=== PATIENT | male | born 1940 | race Hispanic/Latino ===

== ENCOUNTER 2017-03-11 09:24 | Inpatient (IN) | payer MEDICARE, BC ==
[2017-03-11 09:28] VITALS: BMI 21.1
[2017-03-11] MEDS ORDERED: Iohexol 240 (50 ml) PO ONE (09:49)
[2017-03-11] MEDS ORDERED: Sodium Chloride 0.9% 1,000 ML IV STA (09:50)
--- NOTE | 2017-03-11 10:05 | ED PDOC ---
HPI: Abdomen Time Seen by Provider: 03/11/17 09:40 Chief Complaint (Nursing): Abdominal Pain Chief Complaint (Provider): abdominal pain History Per: Patient History/Exam Limitations: no limitations Onset/Duration Of Symptoms: Days (2) Context: Food Location Of Pain/Discomfort: RLQ Quality Of Discomfort: Sharp Associated Symptoms: Nausea, Loss Of Appetite, Constipation. denies: Vomiting Exacerbating Factors: None Alleviating Factors: None Additional Complaint(s): 76yo male c/o right lower abdominal pain associated with overnight chills, nausea and general feelings of unwellness. Went to urgent care clinic yesterday has bloodwork performed unknown results. States believes he still has his appendix, had perforated gastric ulcer surgery in 1950s with partial gastrectomy. PMD Omid Vogt Past Medical History Reviewed: Historical Data, Nursing Documentation, Vital Signs Vital Signs: Last Vital Signs Temp 100.3 F H 03/11/17 14:01 Pulse 88 03/11/17 09:27 Resp 20 03/11/17 09:27 BP 119/50 L 03/11/17 09:27 Pulse Ox 98 03/11/17 10:09 - Medical History PMH: Graves' Disease Denies: Diabetes, Hepatitis, HIV, HTN, Seizures, Sexually Transmitted Disease - Surgical History Other surgeries: gastric surgery 50yrs ago - Family History Family History: States: Unknown Family Hx - Living Arrangements Living Arrangements: With Family - Social History Current smoker - smoking cessation education provided: Yes Alcohol: Occasional - Home Medications Home Medications: Ambulatory Orders Medication Instructions Recorded Finasteride [Proscar] 5 mg PO DAILY 03/11/17 Levothyroxine [Synthroid] 88 mcg PO DAILY 03/11/17 Simvastatin [Zocor] 20 mg PO DAILY 03/11/17 Tamsulosin [Flomax] 0.8 mg PO DAILY 03/11/17 diaZEpam [Valium] 10 mg PO DAILY PRN 03/11/17 predniSONE [predniSONE Tab] 5 mg PO DAILY 03/11/17 - Allergies Allergies/Adverse Reactions: Allergies Allergy/AdvReac Type Severity Reaction Status Date / Time No Known Allergies Allergy Verified 04/27/15 15:48 Review of Systems ROS Statement: Except As Marked, All Systems Reviewed And Found Negative Constitutional: Positive for: Chills Cardiovascular: Negative for: Chest Pain, Palpitations Respiratory: Negative for: Cough, Shortness of Breath Gastrointestinal: Positive for: Nausea, Abdominal Pain, Constipation. Negative for: Vomiting, Hematochezia, Hematemesis Genitourinary Male: Negative for: Dysuria, Frequency Musculoskeletal: Negative for: Neck Pain, Shoulder Pain Skin: Negative for: Rash, Lesions, Jaundice Neurological: Negative for: Weakness, Numbness Psych: Negative for: Anxiety Physical Exam - Reviewed Nursing Documentation Reviewed: Yes Vital Signs Reviewed: Yes - Physical Exam Appears: Positive for: Well, Non-toxic, No Acute Distress Head Exam: Positive for: ATRAUMATIC, NORMAL INSPECTION, NORMOCEPHALIC Skin: Positive for: Normal Color, Warm, DRY Eye Exam: Positive for: Normal appearance, EOMI, PERRL, Other (patch to R eye) ENT: Positive for: Normal ENT Inspection Neck: Positive for: Normal, Painless ROM Cardiovascular/Chest: Positive for: Regular Rate, Rhythm Respiratory: Positive for: CNT, Normal Breath Sounds Gastrointestinal/Abdominal: Positive for: Bowel Sounds, Soft, Tenderness (mild RLQ). Negative for: Guarding, Rebound, Asicites Back: Positive for: Normal Inspection Extremity: Positive for: Normal ROM Neurologic/Psych: Positive for: Alert, Oriented. Negative for: Motor/Sensory Deficits - Laboratory Results Result Diagrams: 03/11/17 10:20 03/11/17 10:20 - ECG O2 Sat by Pulse Oximetry: 98 Medical Decision Making Medical Decision Making: pt found to be febrile in ED rectal temp Sepsis workup initiated. IVF, cultures, tylenol, labs, Ct abd pelvis r/o appendicitis/ colitis/ biliary colic/ obstruction or other abdominal or infectious pathology. labs reveal elevated WBC, abnormal LFTs, lactate <2 CT abd pelv reveals cholelithiasis without mention of CBD. Appendix normal. + narrowing of terminal ileum. CXR no acute infiltrate US Abdomen ordered PMD Dr Moreno contacted, requested Dr Carter for surgery, Dr Fletcher for GI and Dr Mariee for ID. Antibiotics initiated after cultures obtained. Family member and patient updated on results. Dr Fletcher aware approx 3pm, requested MRCP which was ordered for admitting team to follow. Dr Carter at bedside approx 315pm Surgery resident added Zozsyn to Abx coverage. Disposition - Clinical Impression Clinical Impression: Choledocholithiasis, Sepsis - Patient ED Disposition Is Patient to be Admitted: Yes Counseled Patient/Family Regarding: Studies Performed, Diagnosis, Need For Followup, Rx Given - Disposition Disposition: Routine/Home Disposition Time: 15:00 Condition: FAIR
[2017-03-11] MEDS ORDERED: Iohexol 240 (50 ml) ONE ×2 (10:35→10:51)
[2017-03-11 10:39] LABS: BASO % 0.1 % (0.0-2.0); EOS # 0.1 K/uL (0.0-0.7); EOS % 0.4 % (0.0-4.0); HEMATOCRIT 36.7 % (35.0-51.0); LYMPH # 0.7 K/uL (1.0-4.3); LYMPH % 3.5 % (20.0-40.0); MEAN CORPUSCULAR HEMOGLOBIN 25.6 pg (27.0-31.0); MEAN PLATELET VOLUME 8.6 fl (7.2-11.7); MONO # 1.2 K/uL (0.0-0.8); MONO % 6.3 % (0.0-10.0); NEUT # 17.1 K/uL (1.8-7.0); NEUT % 89.7 % (50.0-75.0); PLATELET COUNT 215 K/uL (130-400); RED CELL DISTRIBUTION WIDTH 16.6 % (11.5-14.5); VENOUS BLOOD GAS BASE EXCESS 1.2 mmol/L (0.0-2.0); VENOUS BLOOD GAS PCO2 41 mmHg (40-60); VENOUS BLOOD PH 7.41 (7.32-7.43)
[2017-03-11 10:54] LABS: ALB/GLOB RATIO 1.5 (1.0-2.1); ALKALINE PHOSPHATASE 113 U/L (38-126); ALT/SGPT 326 U/L (21-72); AST/SGOT 414 U/L (17-59); BILIRUBIN,TOTAL 3.1 mg/dl (0.2-1.3); BLOOD UREA NITROGEN 13 mg/dl (9-20); CALCIUM 8.9 mg/dL (8.4-10.2); CARBON DIOXIDE 22 mmol/L (22-30); CHLORIDE 103 mmol/L (98-107); GFR AFRICAN-AMERICAN > 60; GLUCOSE,RANDOM 121 mg/dL (75-110); SODIUM 135 mmol/l (132-148); TOTAL PROTEIN 6.3 G/DL (6.3-8.2)
[2017-03-11] MEDS ORDERED: Sodium Chloride 0.9% 50 ML IV ONE (12:38)
[2017-03-11] MEDS ORDERED: Iohexol 300 100 ML IJ ONE (12:38)
--- NOTE | 2017-03-11 13:35 | CT ---
PROCEDURE: CT Abdomen and Pelvis with contrast HISTORY: RLQ pain, nausea; hx gastric surgery 1950 COMPARISON: None. TECHNIQUE: Contrast dose: 95 cc of Omnipaque 300 Radiation dose: Total exam DLP = 496 mGy-cm. This CT exam was performed using one or more of the following dose reduction techniques: Automated exposure control, adjustment of the mA and/or kV according to patient size, and/or use of iterative reconstruction technique. FINDINGS: LOWER THORAX: Unremarkable. LIVER: 7 millimeter partly calcified cyst in the right hepatic lobe near the dome. . No gross lesion or ductal dilatation. GALLBLADDER AND BILE DUCTS: Multiple gallstones with minimal focal gallbladder wall thickening possibly representing an adenomyomatosis. PANCREAS: Unremarkable. No gross lesion or ductal dilatation. SPLEEN: Unremarkable. ADRENALS: Unremarkable. No mass. KIDNEYS AND URETERS: Unremarkable. No hydronephrosis. No solid mass. VASCULATURE: Atherosclerotic changes of the aorta. No aneurysm. BOWEL: Short segment of luminal narrowing and bowel wall thickening involving the distal ileum (series 2, images 76-80). No obstruction. No gross mural thickening. APPENDIX: Normal appendix. PERITONEUM: Unremarkable. No free fluid. No free air. LYMPH NODES: Unremarkable. No enlarged lymph nodes. BLADDER: Roughly 1.5 centimeter right posterior bladder diverticulum. . REPRODUCTIVE: Unremarkable. BONES: No acute fracture. OTHER FINDINGS: None. IMPRESSION: Cholelithiasis with questionable mild adenomyomatosis. Tiny calcified cyst in the right hepatic lobe. 1.5 centimeter right bladder diverticulum. Short segment of luminal narrowing and mild bowel wall thickening involving the distal ileum. Accompanying mild increased enhancement. No evidence of associated inflammatory changes. This is nonspecific in etiology and is of uncertain clinical significance. No evidence of an associated inflammatory change. Normal appearance of the appendix.
[2017-03-11] MEDS ORDERED: Ciprofloxacin 400mg/200ml D5W 400 MG/200 ML BAG IVPB STA (13:42)
[2017-03-11] MEDS ORDERED: metroNIDAZOLE 500mg/100ml NS 100 ML IVPB STA (13:42)
[2017-03-11 13:43] LABS: RBC URINE 1 /hpf (0-3); URINE BACTERIA RARE (<OCC); URINE BILIRUBIN NEGATIVE (NEGATIVE); URINE BLOOD NEGATIVE (NEGATIVE); URINE CALCIUM OXALATE CRYSTALS RARE /hpf (<OCC); URINE COLOR YELLOW (YELLOW); URINE GLUCOSE (UA) NEG (Normal); URINE KETONE NEGATIVE (NEGATIVE); URINE LEUKOCYTE ESTERASE NEG Leu/uL (Negative); URINE PROTEIN NEGATIVE (NEGATIVE); URINE UROBILINOGEN 0.2-1.0 mg/dL (0.2-1.0); WBC URINE 1 /hpf (0-5)
[2017-03-11 13:49] LABS: NEUTROPHIL 87 % (42-75); TOTAL CELLS COUNTED 100
[2017-03-11] MEDS ORDERED: Ciprofloxacin 400mg/200ml D5W 400 MG/200 ML BAG IVPB ONE (13:53)
--- NOTE | 2017-03-11 16:00 | CP.PCM.CON ---
History of Present Illness - History of Present Illness History of Present Illness: Surgery: Dr. Carter Reason for consult: cholangitis CC: Right side abdominal pain and fever HPI: Patient is a 76 y/o male w/ sig pmhx of partial gastric resection 2/2 ulcers presents complaining of Right sided abdominal pain that started yesterday night as well as fever. Patient reports having similar pain in the past but was attributed to kidney stones. Patient reports the pain was sharp in nature and radiate to the back on the right side. He denies n/v. Daughter at bedside reports high fever last night with chills. Pain was somewhat relieved was given medication in ER. Denies constipation/diarrhea. PMH: Grave's disease, COPD, PUD PSH: ex lap Chavo patch for duodenal perforation followed by repeat ex lap w/ Billroth I vs Billroth II configuration for PUD, thyroidectomy, urology procedures for kidney stones Social: prior ETOH use, smokes 1ppd Review of Systems - Review of Systems All systems: reviewed and no additional remarkable complaints except Review of Systems: otherwise negative Past Patient History - Past Social History Smoking Status: Heavy Smoker > 10 Cigarettes Daily - CARDIAC Hx Cardiac Disorders: No Hx Hypertension: No - PULMONARY Hx Respiratory Disorders: No Hx Tuberculosis: No - NEUROLOGICAL Hx Neurological Disorder: No Hx Seizures: No - HEENT Hx HEENT Problems: No - RENAL Hx Chronic Kidney Disease: No - ENDOCRINE/METABOLIC Hx Endocrine Disorders: Yes - HEMATOLOGICAL/ONCOLOGICAL Hx Human Immunodeficiency Virus (HIV): No - INTEGUMENTARY Hx Dermatological Problems: No - MUSCULOSKELETAL/RHEUMATOLOGICAL Hx Musculoskeletal Disorders: No - GASTROINTESTINAL Hx Gastrointestinal Disorders: No - GENITOURINARY/GYNECOLOGICAL Hx Genitourinary Disorders: No Hx Sexually Transmitted Disorders: No - PSYCHIATRIC Hx Substance Use: No - SURGICAL HISTORY Hx Surgeries: Yes Other/Comment: CATARACT. - ANESTHESIA Hx Anesthesia: Yes Hx Anesthesia Reactions: No Meds Allergies/Adverse Reactions: Allergies Allergy/AdvReac Type Severity Reaction Status Date / Time No Known Allergies Allergy Verified 04/27/15 15:48 - Medications Medications: Current Medications Sodium Chloride (Sodium Chloride 0.9%) 1,000 mls @ 150 mls/hr IV .Q6H40M STA Stop: 03/11/17 16:29 Last Admin: 03/11/17 10:37 Dose: 150 mls/hr Physical Exam - Constitutional Appears: Non-toxic, No Acute Distress - Head Exam Head Exam: ATRAUMATIC, NORMOCEPHALIC - Eye Exam Eye Exam: EOMI, Scleral icterus - ENT Exam ENT Exam: Mucous Membranes Moist - Respiratory Exam Respiratory Exam: NORMAL BREATHING PATTERN. absent: Respiratory Distress - Cardiovascular Exam Cardiovascular Exam: REGULAR RHYTHM. absent: Tachycardia - GI/Abdominal Exam GI & Abdominal Exam: Soft, Tenderness (RUQ ). absent: Distended, Guarding, Rebound, Rigid Additional comments: 2 midline scars well healed - Extremities Exam Extremities exam: Positive for: normal inspection. Negative for: calf tenderness - Neurological Exam Neurological exam: Alert, Oriented x3 - Psychiatric Exam Psychiatric exam: Normal Affect, Normal Mood - Skin Skin Exam: Dry, Normal Color, Warm Results - Vital Signs Recent Vital Signs: Last Vital Signs Temp 100.3 F H 03/11/17 14:01 Pulse 88 03/11/17 09:27 Resp 20 03/11/17 09:27 BP 119/50 L 03/11/17 09:27 Pulse Ox 98 03/11/17 10:09 - Labs Result Diagrams: 03/11/17 10:20 03/11/17 10:20 Assessment & Plan - Assessment and Plan (Free Text) Assessment: 76 y/o male w/ cholangitis Plan: -CT shows dilated CBD and possible stone however patient might have gastrojejunostomy configuration (Billroth 2) making CBD access difficult through endoscopy -may require PTC if stone lodged in CBD -f/u ultrasound -am labs -IV abx -IVFs -NPO -pending clinical course determines surgical intervention -patient seen and examined w/ Dr. Carter AKsara PGY3
[2017-03-11] MEDS ORDERED: HYDROmorphone 0.5 mg/0.5 ml ISec IVP PRN (16:13)
--- NOTE | 2017-03-11 16:14 | RAD ---
HISTORY: Fever. COMPARISON: 04/27/2015. FINDINGS: LUNGS: No active pulmonary disease. PLEURA: No significant pleural effusion identified, no pneumothorax apparent. CARDIOVASCULAR: No radiographic findings to suggest acute or significant cardiovascular disease. OSSEOUS STRUCTURES: No significant abnormalities. VISUALIZED UPPER ABDOMEN: Normal. OTHER FINDINGS: None. IMPRESSION: No active disease. No significant interval change compared to the prior examination(s). No preliminary report provided by emergency department personnel.
--- NOTE | 2017-03-11 16:21 | US ---
HISTORY: RUQ GB, elev LFTs COMPARISON: None. TECHNIQUE: Sonographic evaluation of the right upper quadrant of the abdomen. FINDINGS: LIVER: Measures 12.9 cm in length. Patent portal vein. Portal venous flow: Hepatopetal. Unremarkeable echogenicity of the liver parenchyma. Well-circumscribed echogenic mass right hepatic lobe near the diaphragm 9 x 12 mm consistent with small incidental hemangioma. GALLBLADDER: Cholelithiasis. Evidence of gallbladder wall thickening, trace pericholecystic fluid. No sonographic Ibanez's sign. COMMON BILE DUCT: Measures 6.0 mm. Mass within the common bile duct consistent with common bile duct stone 8 x 13 mm. PANCREAS: Obscured by overlying bowel gas. Non diagnostic assessment of the pancreas RIGHT KIDNEY: Measures 5 x 11.2 cm in length. Normal echogenicity. No calculus, mass, or hydronephrosis. AORTA: No aneurysmal dilatation. IVC: Unremarkable. OTHER FINDINGS: None . IMPRESSION: 1. Cholelithiasis and findings suggestive of acute cholecystitis. 2. Choledocholithiasis Limitations of the current examination: Nondiagnostic assessment of the gallbladder which is obscured by overlying bowel gas.
--- NOTE | 2017-03-11 17:07 | CP.PCM.CON ---
History of Present Illness - History of Present Illness History of Present Illness: Patient is a 76 y/o male pmhx of partial gastric resection / BILLROTH II RESECTION presents complaining of Right sided abdominal pain that started yesterday night as well as fever. . Daughter at bedside reports high fever last night with chills. Pain was somewhat relieved was given medication in ER. Denies constipation/diarrhea. IV ANTIBIOTICS STARTED EMPIRICALLY FOR BILIARY SEPSIS / ASCENDING CHOLANGITIS PMH: Grave's disease, COPD, PUD PSH: ex lap Chavo patch for duodenal perforation followed by repeat ex lap w/ Billroth I vs Billroth II configuration for PUD, thyroidectomy, urology procedures for kidney stones Social: prior ETOH use, smokes 1ppd Review of Systems - Constitutional Constitutional: As Per HPI, Anorexia, Fever, Malaise - EENT Eyes: absent: As Per HPI, Blind Spots, Blurred Vision, Change in Vision, Decreased Night Vision, Diplopia, Discharge, Dry Eye, Exophthalmos, Floaters, Irritation, Itchy Eyes, Loss of Peripheral Vision, Pain, Photophobia, Requires Corrective Lenses, Sees Flashes, Spots in Vision, Tunnel Vision, Other Visual Disturbances, Loss of Vision, Other Ears: absent: As Per HPI, Decreased Hearing, Ear Discharge, Ear Pain, Tinnitus, Abnormal Hearing, Disequilibrium, Dizziness, Other Nose/Mouth/Throat: absent: As Per HPI, Epistaxis, Nasal Congestion, Nasal Discharge, Nasal Obstruction, Nasal Trauma, Nose Pain, Post Nasal Drip, Sinus Pain, Sinus Pressure, Bleeding Gums, Change in Voice, Dental Pain, Dry Mouth, Dysphagia, Halitosis, Hoarsness, Lip Swelling, Mouth Lesions, Mouth Pain, Odynophagia, Sore Throat, Throat Swelling, Tongue Swelling, Facial Pain, Neck Pain, Neck Mass, Other - Cardiovascular Cardiovascular: absent: As Per HPI, Acrocyanosis, Chest Pain, Chest Pain at Rest , Chest Pain with Activity, Claudication, Diaphoresis, Dyspnea, Dyspnea on Exertion, Edema, Irregular Heart Rhythm, Pain Radiating to Arm/Neck/Jaw, Leg Edema, Leg Ulcers, Lightheadedness, Orthopnea, Palpitations, Paroxysmal Nocturnal Dyspnea, Pedal Edema, Radiating Pain, Rapid Heart Rate, Slow Heart Rate, Syncope, Other - Respiratory Respiratory: absent: As Per HPI, Cough, Dyspnea, Hemoptysis, Dyspnea on Exertion , Wheezing, Snoring, Stridor, Pain on Inspiration, Chest Congestion, Excessive Mucous Production, Change in Mucous Color, Pain with Coughing, Other - Gastrointestinal Gastrointestinal: As Per HPI - Genitourinary Genitourinary: absent: As Per HPI, Change in Urinary Stream, Difficulty Urinating, Dysuria, Flank Pain, Hematuria, Pyuria, Nocturia, Urinary Incontinence, Urinary Frequency, Urinary Hesitance, Urinary Urgency, Voiding Freq/Small Amts, Freq UTI, Hx Renal/Bladder Calculi, Hx /Renal Surgery, Bladder Distension, Other - Musculoskeletal Musculoskeletal: absent: As Per HPI, Abnormal Gait, Arthralgias, Atrophy, Back Pain, Deformity, Joint Swelling, Limited Range of Motion, Loss of Height, Muscle Cramps, Muscle Weakness, Myalgias, Neck Pain, Numbness, Radiating Pain into Limb, Stiffness, Tingling, Other - Integumentary Integumentary: absent: As Per HPI, Acne, Alopecia, Bleeding Lesions, Change in Hair, Change in Nails, Change in Pigmentation, Changing Lesions, Dry Skin, Erythema, Furuncle, Hirsutism, Lesions, New Lesions, Non-Healing Lesions, Photosensitivity, Pruritus, Rash, Skin Pain, Skin Ulcer, Sores, Striae, Swelling , Unusual Bruising, Wounds, Jaundice, Other - Neurological Neurological: absent: As Per HPI, Abnormal Gait, Abnormal Hearing, Abnormal Movements, Abnormal Speech, Behavioral Changes, Burning Sensations, Confusion, Convulsions, Disequilibrium, Dizziness, Numbness, Focal Weakness, Frequent Falls , Headaches, Lack of Coordination, Loss of Vision, Memory Loss, Paresthesias, Radicular Pain, Restless Legs, Sensory Deficit, Syncope, Tingling, Tremor, Vertigo, Weakness, Other Visual Disturbances, Other - Psychiatric Psychiatric: absent: As Per HPI, Abnormal Sleep Pattern, Anhedonia, Anxiety, Auditory Hallucinations, Behavioral Changes, Change in Appetite, Change in Libido, Confusion, Depression, Difficulty Concentrating, Hallucinations, Homicidal Ideation, Hopelessness, Irritability, Memory Loss, Mood Swings, Panic Attacks, Paranoia, Suicidal Ideation, Visual Hallucinations, Tactile Hallucinations, Other - Endocrine Endocrine: absent: As Per HPI, Change in Body Appearance, Change in Libido, Cold Intolorance, Deepening of Voice, Excessive Sweating, Fatigue, Flushing, Heat Intolorance, Increase in Ring/Shoe/Hat Size, Palpitations, Polydipsia, Polyphagia, Polyuria, Other - Hematologic/Lymphatic Hematologic: absent: As Per HPI, Easy Bleeding, Easy Bruising, Lymphadenopathy, Other Past Patient History - Past Social History Smoking Status: Heavy Smoker > 10 Cigarettes Daily - CARDIAC Hx Cardiac Disorders: No Hx Hypertension: No - PULMONARY Hx Respiratory Disorders: No Hx Tuberculosis: No - NEUROLOGICAL Hx Neurological Disorder: No Hx Seizures: No - HEENT Hx HEENT Problems: No - RENAL Hx Chronic Kidney Disease: No - ENDOCRINE/METABOLIC Hx Endocrine Disorders: Yes - HEMATOLOGICAL/ONCOLOGICAL Hx Human Immunodeficiency Virus (HIV): No - INTEGUMENTARY Hx Dermatological Problems: No - MUSCULOSKELETAL/RHEUMATOLOGICAL Hx Musculoskeletal Disorders: No - GASTROINTESTINAL Hx Gastrointestinal Disorders: No - GENITOURINARY/GYNECOLOGICAL Hx Genitourinary Disorders: No Hx Sexually Transmitted Disorders: No - PSYCHIATRIC Hx Substance Use: No - SURGICAL HISTORY Hx Surgeries: Yes Other/Comment: CATARACT. - ANESTHESIA Hx Anesthesia: Yes Hx Anesthesia Reactions: No Meds Allergies/Adverse Reactions: Allergies Allergy/AdvReac Type Severity Reaction Status Date / Time No Known Allergies Allergy Verified 04/27/15 15:48 - Medications Medications: Current Medications Acetaminophen (Tylenol 325mg Tab) 650 mg PO Q4 PRN PRN Reason: Fever >100.4 F Famotidine (Pepcid) 40 mg IVP DAILY NATHAN Hydromorphone HCl (Dilaudid) 0.5 mg IVP Q4 PRN PRN Reason: Pain, moderate (4-7) Lactated Ringer's (Lactated Ringer's) 1,000 mls @ 100 mls/hr IV .Q10H NATHAN Piperacillin Sod/Tazobactam (Sod 3.375 gm/ Sodium Chloride) 100 mls @ 100 mls/ hr IVPB Q6 NATHAN Ondansetron HCl (Zofran Inj) 4 mg IVP Q4 PRN PRN Reason: Nausea/Vomiting Physical Exam - Constitutional Appears: Non-toxic, Chronically Ill - Head Exam Head Exam: NORMOCEPHALIC - Eye Exam Eye Exam: PERRL. absent: Scleral icterus - ENT Exam ENT Exam: Mucous Membranes Dry, Normal External Ear Exam - Neck Exam Neck exam: Negative for: Lymphadenopathy, Thyromegaly - Respiratory Exam Respiratory Exam: Decreased Breath Sounds - Cardiovascular Exam Cardiovascular Exam: REGULAR RHYTHM, +S1, +S2 - GI/Abdominal Exam GI & Abdominal Exam: Diminished Bowel Sounds, Distended, Guarding, Tenderness. absent: Rigid, Soft - Rectal Exam Rectal Exam: Deferred - Exam Exam: NORMAL INSPECTION - Extremities Exam Extremities exam: Positive for: pedal pulses present. Negative for: calf tenderness, pedal edema, tenderness - Back Exam Back exam: absent: CVA tenderness (L), CVA tenderness (R) - Neurological Exam Neurological exam: Alert, CN II-XII Intact - Psychiatric Exam Psychiatric exam: Normal Mood - Skin Skin Exam: Dry Results - Vital Signs Recent Vital Signs: Last Vital Signs Temp 100.3 F H 03/11/17 14:01 Pulse 88 03/11/17 09:27 Resp 20 03/11/17 09:27 BP 119/50 L 03/11/17 09:27 Pulse Ox 98 03/11/17 10:09 - Labs Result Diagrams: 03/13/17 05:55 03/13/17 05:55 Assessment & Plan (1) Choledocholithiasis Status: Acute (2) Sepsis Status: Acute - Assessment and Plan (Free Text) Assessment: CONT IV RX NEEDS GI INTERVENTION
--- NOTE | 2017-03-11 18:22 | MRI ---
PROCEDURE: Magnetic Resonance Cholangiopancreatography HISTORY: COMPARISON: None available. TECHNIQUE: Multiplanar, multisequence MR images of the abdomen were obtained, including heavily T2 weighted MRCP images of the biliary system. Rotating maximum intensity projection images of the biliary system were generated. FINDINGS: MRCP: The common bile duct is of a normal caliber. No evidence of choledocholithiasis. No intrahepatic biliary ductal dilatation. LIVER: Unremarkable. GALLBLADDER: Multiple gallstones are present with pericholecystic fluid present. There are multiple stones noted within the common bile duct consistent with choledocholithiasis. No significant extrahepatic or intrahepatic biliary dilatation is observed. SPLEEN: Unremarkable. PANCREAS: Unremarkable. ADRENALS: Unremarkable. KIDNEYS: Unremarkable. AORTA: No aneurysm. ASCITES: None. OTHER FINDINGS: Assessment is limited by respiratory motion artifact. IMPRESSION: Cholelithiasis with pericholecystic fluid. Choledocholithiasis. No significant intra or extrahepatic biliary dilatation. Limited by respiratory motion artifact.
--- NOTE | 2017-03-11 18:36 | CP.PCM.CON ---
History of Present Illness - History of Present Illness History of Present Illness: 76 yo male admitted with right sided abdominal pain, chills, and weakness.Has had 2 operations one for perforated ulcer and the other resulting in a partial gastrectomy (presumably Bilroth2 ).Has had multiple colonoscopies, most recently 6 months ago and multiple polyps were seen. Review of Systems - Constitutional Constitutional: Chills - EENT Eyes: absent: Blurred Vision Ears: absent: Decreased Hearing Nose/Mouth/Throat: absent: Epistaxis - Cardiovascular Cardiovascular: absent: Chest Pain - Respiratory Respiratory: absent: Cough - Gastrointestinal Gastrointestinal: As Per HPI Past Patient History - Past Social History Alcohol: Occasional - CARDIAC Hx Hypertension: No - PULMONARY Hx Respiratory Disorders: No Hx Tuberculosis: No - NEUROLOGICAL Hx Seizures: No - HEENT Hx HEENT Problems: No - RENAL Hx Chronic Kidney Disease: No - ENDOCRINE/METABOLIC Hx Endocrine Disorders: Yes - HEMATOLOGICAL/ONCOLOGICAL Hx Human Immunodeficiency Virus (HIV): No - INTEGUMENTARY Hx Dermatological Problems: No - MUSCULOSKELETAL/RHEUMATOLOGICAL Hx Musculoskeletal Disorders: No - GASTROINTESTINAL Hx Gastrointestinal Disorders: No - GENITOURINARY/GYNECOLOGICAL Hx Sexually Transmitted Disorders: No - PSYCHIATRIC Hx Substance Use: No - SURGICAL HISTORY Hx Surgeries: Yes Other/Comment: CATARACT. - ANESTHESIA Hx Anesthesia: Yes Hx Anesthesia Reactions: No Meds Allergies/Adverse Reactions: Allergies Allergy/AdvReac Type Severity Reaction Status Date / Time No Known Allergies Allergy Verified 04/27/15 15:48 - Medications Medications: Current Medications Acetaminophen (Tylenol 325mg Tab) 650 mg PO Q4 PRN PRN Reason: Fever >100.4 F Famotidine (Pepcid) 40 mg IVP DAILY [facility]ATHAN Hydromorphone HCl (Dilaudid) 0.5 mg IVP Q4 PRN PRN Reason: Pain, moderate (4-7) Lactated Ringer's (Lactated Ringer's) 1,000 mls @ 100 mls/hr IV .Q10H [facility]ATHAN Piperacillin Sod/Tazobactam (Sod 3.375 gm/ Sodium Chloride) 100 mls @ 100 mls/ hr IVPB Q6 NATHAN Ondansetron HCl (Zofran Inj) 4 mg IVP Q4 PRN PRN Reason: Nausea/Vomiting Physical Exam - Constitutional Appears: Well - Head Exam Head Exam: ATRAUMATIC - Eye Exam Eye Exam: Normal appearance - ENT Exam ENT Exam: Normal Exam - Neck Exam Neck exam: Positive for: Normal Inspection - Cardiovascular Exam Cardiovascular Exam: REGULAR RHYTHM - GI/Abdominal Exam GI & Abdominal Exam: Normal Bowel Sounds, Soft Results - Vital Signs Recent Vital Signs: Last Vital Signs Temp 100.3 F H 03/11/17 14:01 Pulse 88 03/11/17 09:27 Resp 20 03/11/17 09:27 BP 119/50 L 03/11/17 09:27 Pulse Ox 98 03/11/17 17:22 - Labs Result Diagrams: 03/11/17 10:20 03/11/17 10:20 Assessment & Plan (1) Choledocholithiasis Assessment and Plan: Likely cholangitis with previously impacted stone, still in CBD. On IV antibiotics. ERCP technically difficult because of previous gastric surgery. Has had colonoscopy recently and will request results. Will discuss further with you. Status: Acute
[2017-03-11 20:25] LABS: PARTIAL THROMBOPLASTIN TIME 31.1 Seconds (25.6-37.1)
[2017-03-11] MEDS: Piperacillin/Tazobact 3.375 GM in Sodium Chloride 0.9% 100 ML IVPB SCH (22:10)
[2017-03-11] MEDS: Lactated Ringer's 1,000 ML IV SCH (22:12)
--- NOTE | 2017-03-11 22:46 | CP.PCM.PN ---
Subjective - Date & Time of Evaluation Date of Evaluation: 03/11/17 Time of Evaluation: 22:22 - Subjective Subjective: 76 yo with hx of partial gastrectomy admiitted for R sided abdominal pain Objective - Vital Signs/Intake and Output Vital Signs (last 24 hours): Temp Pulse Resp BP Pulse Ox 9.6 F L 67 14 132/52 L 98 03/11/17 21:07 03/11/17 21:07 03/11/17 21:07 03/11/17 21:07 03/11/17 21:07 - Medications Medications: Current Medications Acetaminophen (Tylenol 325mg Tab) 650 mg PO Q4 PRN PRN Reason: Fever >100.4 F Famotidine (Pepcid) 40 mg IVP DAILY NATHAN Hydromorphone HCl (Dilaudid) 0.5 mg IVP Q4 PRN PRN Reason: Pain, moderate (4-7) Lactated Ringer's (Lactated Ringer's) 1,000 mls @ 100 mls/hr IV .Q10H NATHAN Last Admin: 03/11/17 22:12 Dose: 100 mls/hr Piperacillin Sod/Tazobactam (Sod 3.375 gm/ Sodium Chloride) 100 mls @ 100 mls/ hr IVPB Q6 NATHAN Last Admin: 03/11/17 22:10 Dose: 100 mls/hr Ondansetron HCl (Zofran Inj) 4 mg IVP Q4 PRN PRN Reason: Nausea/Vomiting - Labs Labs: PT 13.4 Seconds (9.8-13.1) H 03/11/17 19:48 INR 1.3 (0.9-1.2) H 03/11/17 19:48 APTT 31.1 Seconds (25.6-37.1) 03/11/17 19:48 - Respiratory Exam Respiratory Exam: NORMAL BREATHING PATTERN - Cardiovascular Exam Cardiovascular Exam: REGULAR RHYTHM - GI/Abdominal Exam GI & Abdominal Exam: Soft, Normal Bowel Sounds. absent: Tenderness Assessment and Plan - Assessment and Plan (Free Text) Assessment: R sided abdominal pain S/P partial gastrectomy W/U ordered GI surgery ID
[2017-03-12] MEDS: Lactated Ringer's 1,000 ML IV SCH ×2 (04:29→16:26)
[2017-03-12] MEDS: Piperacillin/Tazobact 3.375 GM in Sodium Chloride 0.9% 100 ML IVPB SCH ×4 (04:30→22:36)
[2017-03-12 07:08] LABS: BASO % 0.3 % (0.0-2.0); EOS # 0.1 K/uL (0.0-0.7); EOS % 0.6 % (0.0-4.0); HEMATOCRIT 32.9 % (35.0-51.0); LYMPH # 0.5 K/uL (1.0-4.3); LYMPH % 4.5 % (20.0-40.0); MEAN CELL VOLUME 79.3 fl (80.0-94.0); MEAN CORPUSCULAR HEMOGLOBIN 26.2 pg (27.0-31.0); MEAN PLATELET VOLUME 8.8 fl (7.2-11.7); MONO # 0.9 K/uL (0.0-0.8); NEUT # 8.7 K/uL (1.8-7.0); NEUT % 85.6 % (50.0-75.0); RED CELL DISTRIBUTION WIDTH 16.5 % (11.5-14.5); WHITE BLOOD COUNT 10.2 K/uL (4.8-10.8)
[2017-03-12 07:11] LABS: PARTIAL THROMBOPLASTIN TIME 31.5 Seconds (25.6-37.1)
[2017-03-12 07:26] LABS: ALB/GLOB RATIO 1.3 (1.0-2.1); ALKALINE PHOSPHATASE 109 U/L (38-126); ALT/SGPT 213 U/L (21-72); AST/SGOT 127 U/L (17-59); BILIRUBIN,TOTAL 3.5 mg/dl (0.2-1.3); BLOOD UREA NITROGEN 11 mg/dl (9-20); CALCIUM 8.6 mg/dL (8.4-10.2); CARBON DIOXIDE 21 mmol/L (22-30); CHLORIDE 109 mmol/L (98-107); GFR AFRICAN-AMERICAN > 60; GLUCOSE,RANDOM 100 mg/dL (75-110); POTASSIUM 3.5 MMOL/L (3.6-5.0); SODIUM 138 mmol/l (132-148); TOTAL PROTEIN 5.8 G/DL (6.3-8.2)
[2017-03-12 07:54] LABS: THYROID STIMULATING HORMONE 0.21 mIU/ML (0.46-4.68)
--- NOTE | 2017-03-12 10:09 | PCM.IRP ---
History of Present Illness - History of Present Illness History of Present Illness: Full consult to follow. CT and MRCP reviewed. Mr. Hubbard has no intrahepatic biliary dilation. Percutaneous transhepatic cholangiogram will be performed once there is intrahepaic biliary dilatation. Will continue to follow. Objective - Vital Signs/Intake and Output Vital Signs (last 24 hours): Vital Signs - 24 hr 03/11/17 03/11/17 03/11/17 17:22 18:55 19:58 Temperature 98.3 F 9.6 F L Pulse Rate 82 67 Respiratory 18 14 Rate Blood Pressure 105/60 132/52 L O2 Sat by Pulse 98 100 98 Oximetry 03/11/17 03/12/17 03/12/17 21:07 00:05 00:31 Temperature 9.6 F L 102.6 F H 102.6 F H Pulse Rate 67 70 Respiratory 14 20 Rate Blood Pressure 132/52 L 168/55 H O2 Sat by Pulse 98 97 Oximetry 03/12/17 03/12/17 03/12/17 01:31 05:13 07:54 Temperature 99.5 F 98.1 F 98.8 F Pulse Rate 63 65 Respiratory 20 18 Rate Blood Pressure 114/64 125/61 O2 Sat by Pulse 98 97 Oximetry - Medications Medications: Current Medications Acetaminophen (Tylenol 325mg Tab) 650 mg PO Q4 PRN PRN Reason: Fever >100.4 F Last Admin: 03/12/17 00:31 Dose: 650 mg Famotidine (Pepcid) 40 mg IVP DAILY [facility] Hydromorphone HCl (Dilaudid) 0.5 mg IVP Q4 PRN PRN Reason: Pain, moderate (4-7) Lactated Ringer's (Lactated Ringer's) 1,000 mls @ 100 mls/hr IV .Q10H NATHAN Last Admin: 03/12/17 04:29 Dose: 100 mls/hr Piperacillin Sod/Tazobactam (Sod 3.375 gm/ Sodium Chloride) 100 mls @ 100 mls/ hr IVPB Q6 NATHAN Last Admin: 03/12/17 09:29 Dose: 100 mls/hr Ondansetron HCl (Zofran Inj) 4 mg IVP Q4 PRN PRN Reason: Nausea/Vomiting - Labs Labs (last 24 hours): Laboratory Results - last 24 hr 03/11/17 03/12/1703/12/17 19:48 06:00 06:00 WBC 10.2 RBC 4.14 L Hgb 10.9 L Hct 32.9 L MCV 79.3 L MCH 26.2 L MCHC 33.0 RDW 16.5 H Plt Count 166 MPV 8.8 Neut % (Auto) 85.6 H Lymph % (Auto) 4.5 L [place] % (Auto) 9.0 Eos % (Auto) 0.6 Baso % (Auto) 0.3 Neut # 8.7 H Lymph # 0.5 L [place] # 0.9 H Eos # 0.1 Baso # 0.0 PT 13.4 H INR 1.3 H APTT 31.1 Sodium 138 Potassium 3.5 L Chloride 109 H Carbon Dioxide 21 L Anion Gap 12 BUN 11 Creatinine 1.1 Est GFR ( Amer) > 60 Est GFR (Non-Af Amer) > 60 Random Glucose 100 Calcium 8.6 Total Bilirubin 3.5 H AST 127 H D ALT 213 H D Alkaline Phosphatase 109 Total Protein 5.8 L Albumin 3.2 L Globulin 2.5 Albumin/Globulin Ratio 1.3 TSH 3rd Generation 0.21 L Blood Type Antibody Screen Crossmatch BBK History Checked 03/12/17 03/12/17 06:00 06:00 WBC RBC Hgb Hct MCV MCH MCHC RDW Plt Count MPV Neut % (Auto) Lymph % (Auto) [place] % (Auto) Eos % (Auto) Baso % (Auto) Neut # Lymph # [place] # Eos # Baso # PT 14.7 H INR 1.4 H APTT 31.5 Sodium Potassium Chloride Carbon Dioxide Anion Gap BUN Creatinine Est GFR ( Amer) Est GFR (Non-Af Amer) Random Glucose Calcium Total Bilirubin AST ALT Alkaline Phosphatase Total Protein Albumin Globulin Albumin/Globulin Ratio TSH 3rd Generation Blood Type O POSITIVE Antibody Screen Negative Crossmatch See Detail BBK History Checked No verified bt
[2017-03-12] MEDS ORDERED: Artificial Tears Opht Soln OU PRN (10:20)
--- NOTE | 2017-03-12 11:42 | CARD ---
APPROVED REPORT EXAM: Two-dimensional and M-mode echocardiogram with Doppler and color Doppler. Other Information Quality : GoodRhythm : NSR INDICATION Pre-Op 2D DIMENSIONS IVSd0.70 (0.7-1.1cm)LVDd4.89 (3.9-5.9cm) LVOT Diameter2.30 (1.8-2.4cm)PWd0.68 (0.7-1.1cm) IVSs1.10 (0.8-1.2cm)LVDs3.31 (2.5-4.0cm) FS (%) 32.4 %PWs1.02 (0.8-1.2cm) M-Mode DIMENSIONS Left Atrium (MM)3.88 (2.5-4.0cm)IVSd0.85 (0.7-1.1cm) Aortic Root2.94 (2.2-3.7cm)LVDd5.18 (4.0-5.6cm) Aortic Cusp Exc.1.74 (1.5-2.0cm)PWd1.00 (0.7-1.1cm) IVSs1.59 cmFS (%) 43 % LVDs2.94 (2.0-3.8cm)PWs1.53 cm Mitral Valve MV E Roygevis27.4cm/sMV DECEL [id number] A Jokhygum39.3cm/s MV EUH22hrT/A ratio1.0MVA (PHT)3.63cm2 TDI Lateral E' Peak V9.13cm/sMedial E' Peak V9.04cm/sE/Lateral E'10.1 E/Medial E'10.2 Pulmonary Valve PV Peak Vtjgycnk514.6cm/s LEFT VENTRICLE The left ventricle is normal size. There is normal left ventricular wall thickness. Left ventricle systolic function is normal. The Ejection Fraction is 65-70%. There is normal LV segmental wall motion. Transmitral Doppler flow pattern is Grade I-abnormal relaxation pattern. RIGHT VENTRICLE The right ventricle is normal size. There is normal right ventricular wall thickness. The right ventricular systolic function is normal. ATRIA The left atrium size is normal. The right atrium size is normal. AORTIC VALVE The aortic valve is normal in structure and function. No aortic regurgitation is present. There is no aortic valvular stenosis. MITRAL VALVE The mitral valve is normal in structure. There is no evidence of mitral valve prolapse. There is no mitral valve stenosis. Mitral regurgitation is trace. TRICUSPID VALVE The tricuspid valve is normal in structure and function. There is no tricuspid valve regurgitation noted. PULMONIC VALVE The pulmonary valve is normal in structure and function. There is no pulmonic valvular regurgitation. GREAT VESSELS The aortic root is normal in size. The IVC is normal in size and collapses >50% with inspiration. PERICARDIAL EFFUSION The pericardium appears normal. <Conclusion> The left ventricle is normal size. There is normal left ventricular wall thickness. There is normal LV segmental wall motion. Left ventricle systolic function is normal. The Ejection Fraction is 65-70%. Transmitral Doppler flow pattern is Grade I-abnormal relaxation pattern.
--- NOTE | 2017-03-12 12:40 | RAD ---
PROCEDURE: CHEST RADIOGRAPH, 1 VIEW HISTORY: ABD pain work up COMPARISON: 03/11/2017 FINDINGS: LUNGS: Clear. PLEURA: No pneumothorax or pleural fluid seen. CARDIOVASCULAR: Normal. OSSEOUS STRUCTURES: No significant abnormalities. VISUALIZED UPPER ABDOMEN: Normal. OTHER FINDINGS: None. IMPRESSION: No active disease.
--- NOTE | 2017-03-12 12:51 | CP.PCM.PN ---
Subjective - Date & Time of Evaluation Date of Evaluation: 03/12/17 Time of Evaluation: 11:00 - Subjective Subjective: Patient seen and examined at bedside. NAEO. Reports persistent RUQ pain. Objective - Vital Signs/Intake and Output Vital Signs (last 24 hours): Temp Pulse Resp BP Pulse Ox 98.1 F 70 18 158/63 H 96 03/12/17 12:03 03/12/17 12:03 03/12/17 12:03 03/12/17 12:03 03/12/17 12:03 - Medications Medications: Current Medications Acetaminophen (Tylenol 325mg Tab) 650 mg PO Q4 PRN PRN Reason: Fever >100.4 F Last Admin: 03/12/17 00:31 Dose: 650 mg Artificial Tears (Artificial Tears) 2 drop OU QID PRN PRN Reason: Dry eyes Famotidine (Pepcid) 40 mg IVP DAILY [facility] Hydromorphone HCl (Dilaudid) 0.5 mg IVP Q4 PRN PRN Reason: Pain, moderate (4-7) Lactated Ringer's (Lactated Ringer's) 1,000 mls @ 100 mls/hr IV .Q10H [facility] Last Admin: 03/12/17 04:29 Dose: 100 mls/hr Piperacillin Sod/Tazobactam (Sod 3.375 gm/ Sodium Chloride) 100 mls @ 100 mls/ hr IVPB Q6 NATHAN Last Admin: 03/12/17 09:29 Dose: 100 mls/hr Ondansetron HCl (Zofran Inj) 4 mg IVP Q4 PRN PRN Reason: Nausea/Vomiting - Labs Labs: 03/12/17 06:00 03/12/17 06:00 PT 14.7 Seconds (9.8-13.1) H 03/12/17 06:00 INR 1.4 (0.9-1.2) H 03/12/17 06:00 APTT 31.5 Seconds (25.6-37.1) 03/12/17 06:00 - Constitutional Appears: No Acute Distress - Head Exam Head Exam: ATRAUMATIC, NORMOCEPHALIC - Eye Exam Eye Exam: Normal appearance. absent: Conjunctival injection, Scleral icterus - ENT Exam ENT Exam: Mucous Membranes Moist, Normal Oropharynx - Respiratory Exam Respiratory Exam: NORMAL BREATHING PATTERN. absent: Accessory Muscle Use, Respiratory Distress - GI/Abdominal Exam GI & Abdominal Exam: Soft. absent: Distended, Tenderness - Extremities Exam Extremities Exam: absent: Calf Tenderness, Pedal Edema, Tenderness - Neurological Exam Neurological Exam: Alert, Awake, Oriented x3 - Psychiatric Exam Psychiatric exam: Normal Affect, Normal Mood Assessment and Plan - Assessment and Plan (Free Text) Assessment: 76 y/o male w/PMH of gastrectomy presenting with cholangitis and choledocholithiasis Fevers overnight with t-max of 102.6 at midnight, currently afebrile WBC improved 10.2 down from 19.0 T-bilirubin increased to 3.5 from 3.1 yesterday AST and ALT also trending up US yesterday showed gallstones, mild pericholecystic fluid, and CBD of 6.0mm with CBD mass concerning for stone MRCP demonstrated choledocholithiasis and pericholecystic fluid Plan: - Patient needs intervention to remove CBD stone - PTC not possible according per IR - Per GI, they will attempt ERCP at [facility] tomorrow - If GI is not able to retrieve stone, patient will undergo cholecystectomy with CBD exploration tomorrow in the OR - am labs - IV abx - IVFs - NPO - INR 1.4--refer to GI recs for management Discussed with Dr. Raul Domínguez, PGY2
[2017-03-12] MEDS: Potassium Chloride 20 MEQ in Sodium Chloride 0.45% 1,000 ML IV SCH (16:31)
--- NOTE | 2017-03-12 17:31 | CARD ---
APPROVED REPORT EKG Measurement Heart [id number] <Conclusion> Normal sinus rhythm Nonspecific T wave abnormality Abnormal ECG
--- NOTE | 2017-03-12 17:38 | CP.PCM.PN ---
Subjective - Date & Time of Evaluation Date of Evaluation: 03/12/17 Time of Evaluation: 06:00 - Subjective Subjective: blood cultures positive for gram neg rods needs intervention Genta added 76 y/o male w/PMH of gastrectomy presenting with cholangitis and choledocholithiasis Fevers overnight with t-max of 102.6 at midnight, currently afebrile WBC improved 10.2 down from 19.0 T-bilirubin increased to 3.5 from 3.1 yesterday AST and ALT also trending up US yesterday showed gallstones, mild pericholecystic fluid, and CBD of 6.0mm with CBD mass concerning for stone MRCP demonstrated choledocholithiasis and pericholecystic fluid Objective - Vital Signs/Intake and Output Vital Signs (last 24 hours): Temp Pulse Resp BP Pulse Ox 102.2 F H 73 20 149/63 100 03/12/17 16:31 03/12/17 15:32 03/12/17 15:32 03/12/17 15:32 03/12/17 15:32 - Medications Medications: Current Medications Acetaminophen (Tylenol 325mg Tab) 650 mg PO Q4 PRN PRN Reason: Fever >100.4 F Last Admin: 03/12/17 16:31 Dose: 650 mg Artificial Tears (Artificial Tears) 2 drop OU QID PRN PRN Reason: Dry eyes Famotidine (Pepcid) 40 mg IVP DAILY [facility] Last Admin: 03/12/17 16:24 Dose: Not Given Hydromorphone HCl (Dilaudid) 0.5 mg IVP Q4 PRN PRN Reason: Pain, moderate (4-7) Lactated Ringer's (Lactated Ringer's) 1,000 mls @ 100 mls/hr IV .Q10H [facility] Last Admin: 03/12/17 16:26 Dose: Not Given Piperacillin Sod/Tazobactam (Sod 3.375 gm/ Sodium Chloride) 100 mls @ 100 mls/ hr IVPB Q6 [facility] Last Admin: 03/12/17 16:34 Dose: 100 mls/hr Potassium Chloride 20 meq/ (Sodium Chloride) 1,010 mls @ 60 mls/hr IV .[id number] [facility] Stop: 03/13/17 13:16 Last Admin: 03/12/17 16:31 Dose: 60 mls/hr Gentamicin Sulfate/Sodium Chloride (Gentamicin 80mg/50ml Ns) 80 mg in 50 mls @ 50 mls/hr IVPB Q12 [facility]ATHAN Ondansetron HCl (Zofran Inj) 4 mg IVP Q4 PRN PRN Reason: Nausea/Vomiting - Labs Labs: 03/12/17 06:00 03/12/17 06:00 PT 14.7 Seconds (9.8-13.1) H 03/12/17 06:00 INR 1.4 (0.9-1.2) H 03/12/17 06:00 APTT 31.5 Seconds (25.6-37.1) 03/12/17 06:00
--- NOTE | 2017-03-12 18:36 | CP.PCM.CON ---
History of Present Illness - History of Present Illness History of Present Illness: PGY4 Initial GI Consult Lucas Lutz is a 76M w/ a hx of Graves, COPD, PUD s/p partial gastrectomy and Billroth 2? who presented to the ER with complaints of fever, chills, diaphoresis, and abd pain. As per pt, it started a few days ago. He states that the pain was initially intermittent and then became constant. Denies any aggravating or alleviating factors. He states that he started to have abd pain in his RUQ which brought him to [facility] then to the ER. Patient reports having similar pain in the past but was attributed to kidney stones. Patient reports the pain was sharp in nature and radiate to the back on the right side. He denies n/v. Daughter at bedside reports high fever last night with chills. Pain was somewhat relieved was given medication in ER. Denies constipation/diarrhea. Pt was initially worked up for sepsis likely source was GI. MRCP revealed cholelithiasis and choledocolithiasis. He was found not to be a candidate for percutaneous cholecystostomy tube by IR. He was started on zosyn and blood cultures revealed gram neg rods. Dr. Fletcher was initially consulted for GI, but since he has a complicated hx of billroth 2 vs 1, Dr. Palencia was consulted for possible ERCP. PMH: Grave's disease, COPD, PUD PSH: ex lap Chavo patch for duodenal perforation followed by repeat ex lap w/ Billroth I vs Billroth II configuration for PUD, thyroidectomy, urology procedures for kidney stones Social: prior ETOH use, smokes 1ppd Pt arrived to the ED and was diagnosed via U/S and CT to possible Endoscopy hx: colonoscopy 6 months ago and found to have 17? polyps as per pt. ROS: 12 point ROS conducted, neg other than above. Past Patient History - Past Medical History & Family History Past Medical History?: Yes - Past Social History Smoking Status: Heavy Smoker > 10 Cigarettes Daily - CARDIAC Hx Cardiac Disorders: Yes Hx Hypercholesterolemia: Yes Hx Hypertension: No - PULMONARY Hx Respiratory Disorders: No - NEUROLOGICAL Hx Neurological Disorder: No Hx Seizures: No - HEENT Hx HEENT Problems: Yes Other/Comment: right eye double vision if patch is off - RENAL Hx Chronic Kidney Disease: No Hx Kidney Stones: Yes - ENDOCRINE/METABOLIC Hx Endocrine Disorders: Yes Other/Comment: Graves disease - HEMATOLOGICAL/ONCOLOGICAL Hx Blood Disorders: No Hx Human Immunodeficiency Virus (HIV): No - INTEGUMENTARY Hx Dermatological Problems: No - MUSCULOSKELETAL/RHEUMATOLOGICAL Hx Musculoskeletal Disorders: No Hx Falls: No - GASTROINTESTINAL Hx Gastrointestinal Disorders: No - GENITOURINARY/GYNECOLOGICAL Hx Genitourinary Disorders: No Hx Sexually Transmitted Disorders: No - PSYCHIATRIC Hx Psychophysiologic Disorder: No Hx Substance Use: No - SURGICAL HISTORY Hx Surgeries: Yes Hx Thyroidectomy: Yes Other/Comment: CATARACT. partial gastrectomy (1950s) secondary to perforated gastric ulcer. - ANESTHESIA Hx Anesthesia: Yes Hx Anesthesia Reactions: No Hx Malignant Hyperthermia: No Meds Allergies/Adverse Reactions: Allergies Allergy/AdvReac Type Severity Reaction Status Date / Time No Known Allergies Allergy Verified 04/27/15 15:48 - Medications Medications: Current Medications Acetaminophen (Tylenol 325mg Tab) 650 mg PO Q4 PRN PRN Reason: Fever >100.4 F Last Admin: 03/12/17 16:31 Dose: 650 mg Artificial Tears (Artificial Tears) 2 drop OU QID PRN PRN Reason: Dry eyes Famotidine (Pepcid) 40 mg IVP DAILY [facility] Last Admin: 03/12/17 16:24 Dose: Not Given Hydromorphone HCl (Dilaudid) 0.5 mg IVP Q4 PRN PRN Reason: Pain, moderate (4-7) Lactated Ringer's (Lactated Ringer's) 1,000 mls @ 100 mls/hr IV .Q10H [facility] Last Admin: 03/12/17 16:26 Dose: Not Given Piperacillin Sod/Tazobactam (Sod 3.375 gm/ Sodium Chloride) 100 mls @ 100 mls/ hr IVPB Q6 [facility] Last Admin: 03/12/17 16:34 Dose: 100 mls/hr Potassium Chloride 20 meq/ (Sodium Chloride) 1,010 mls @ 60 mls/hr IV .[id number] [facility] Stop: 03/13/17 13:16 Last Admin: 03/12/17 16:31 Dose: 60 mls/hr Gentamicin Sulfate/Sodium Chloride (Gentamicin 80mg/50ml Ns) 80 mg in 50 mls @ 50 mls/hr IVPB Q12 [facility] Ondansetron HCl (Zofran Inj) 4 mg IVP Q4 PRN PRN Reason: Nausea/Vomiting Physical Exam - Constitutional Appears: No Acute Distress Additional comments: diaphoretic - Head Exam Head Exam: ATRAUMATIC, NORMOCEPHALIC - Eye Exam Eye Exam: Normal appearance - ENT Exam ENT Exam: Mucous Membranes Moist - Respiratory Exam Respiratory Exam: Clear to Auscultation Bilateral. absent: Rales, Rhonchi, Wheezes, Respiratory Distress - Cardiovascular Exam Cardiovascular Exam: REGULAR RHYTHM, +S1, +S2 - GI/Abdominal Exam GI & Abdominal Exam: Normal Bowel Sounds, Soft, Tenderness Additional comments: ruq - Extremities Exam Extremities exam: Negative for: joint swelling, pedal edema - Neurological Exam Neurological exam: Alert, Oriented x3 - Psychiatric Exam Psychiatric exam: Normal Affect, Normal Mood - Skin Skin Exam: Dry, Intact, Normal Color, Warm Results - Vital Signs Recent Vital Signs: Last Vital Signs Temp 98.8 F 03/12/17 17:31 Pulse 73 03/12/17 15:32 Resp 20 03/12/17 15:32 BP 149/63 03/12/17 15:32 Pulse Ox 100 03/12/17 15:32 - Labs Result Diagrams: 03/12/17 06:00 03/12/17 06:00 Labs: Laboratory Results - last 24 hr 03/11/17 03/11/17 03/12/17 19:48 19:48 06:00 WBC 10.2 RBC 4.14 L Hgb 10.9 L Hct 32.9 L MCV 79.3 L MCH 26.2 L MCHC 33.0 RDW 16.5 H Plt Count 166 MPV 8.8 Neut % (Auto) 85.6 H Lymph % (Auto) 4.5 L [place] % (Auto) 9.0 Eos % (Auto) 0.6 Baso % (Auto) 0.3 Neut # 8.7 H Lymph # 0.5 L [place] # 0.9 H Eos # 0.1 Baso # 0.0 PT 13.4 H INR 1.3 H APTT 31.1 Sodium Potassium Chloride Carbon Dioxide Anion Gap BUN Creatinine Est GFR ( Amer) Est GFR (Non-Af Amer) Random Glucose Calcium Total Bilirubin AST ALT Alkaline Phosphatase Total Protein Albumin Globulin Albumin/Globulin Ratio Procalcitonin 0.64 H TSH 3rd Generation Blood Type Blood Type Confirm Antibody Screen Crossmatch BBK History Checked 03/12/17 03/12/17 03/12/17 06:00 06:00 06:00 WBC RBC Hgb Hct MCV MCH MCHC RDW Plt Count MPV Neut % (Auto) Lymph % (Auto) [place] % (Auto) Eos % (Auto) Baso % (Auto) Neut # Lymph # [place] # Eos # Baso # PT 14.7 H INR 1.4 H APTT 31.5 Sodium 138 Potassium 3.5 L Chloride 109 H Carbon Dioxide 21 L Anion Gap 12 BUN 11 Creatinine 1.1 Est GFR ( Amer) > 60 Est GFR (Non-Af Amer) > 60 Random Glucose 100 Calcium 8.6 Total Bilirubin 3.5 H AST 127 H D ALT 213 H D Alkaline Phosphatase 109 Total Protein 5.8 L Albumin 3.2 L Globulin 2.5 Albumin/Globulin Ratio 1.3 Procalcitonin TSH 3rd Generation 0.21 L Blood Type O POSITIVE Blood Type Confirm Antibody Screen Negative Crossmatch See Detail BBK History Checked No verified bt 03/12/17 07:26 WBC RBC Hgb Hct MCV MCH MCHC RDW Plt Count MPV Neut % (Auto) Lymph % (Auto) [place] % (Auto) Eos % (Auto) Baso % (Auto) Neut # Lymph # [place] # Eos # Baso # PT INR APTT Sodium Potassium Chloride Carbon Dioxide Anion Gap BUN Creatinine Est GFR ( Amer) Est GFR (Non-Af Amer) Random Glucose Calcium Total Bilirubin AST ALT Alkaline Phosphatase Total Protein Albumin Globulin Albumin/Globulin Ratio Procalcitonin TSH 3rd Generation Blood Type Blood Type Confirm O POSITIVE Antibody Screen Crossmatch BBK History Checked Assessment & Plan - Assessment and Plan (Free Text) Assessment: Lucas Hubbard is a 76M w/ hx of HTN, COPD, PUD s/p partial gastrectomy and Billroth2 who presents to the Er with complaints of RUQ and sepsis. With elevated LFTs and bilirubin with abd MRCP, pt likely has Cholangitis 1. Cholangitis 2. Hx of Billroth2 3. Hx of PUD 4. HX of Gastric perforation Plan: -continue zosyn -abx as per ID -blood cultures reveal heavy gram neg growth, likely GI source -Will get ERCP tomorrow at [facility] by Dr. Palencia -NPO after midnight -Continue to monitor BP -Hold Anticoag after midnight -Hold BP meds -if pt worsens, consider transfer to ICU -CBC, CMP, INR in the AM D/W Dr. Melendez
--- NOTE | 2017-03-12 20:57 | CP.PCM.HP ---
History of Present Illness - History of Present Illness History of Present Illness: 76 yo admitted with R side abdominal pain Present on Admission - Present on Admission Any Indicators Present on Admission: No Past Patient History - Past Medical History & Family History Past Medical History?: Yes - Past Social History Smoking Status: Heavy Smoker > 10 Cigarettes Daily - CARDIAC Hx Cardiac Disorders: Yes Hx Hypercholesterolemia: Yes Hx Hypertension: No - PULMONARY Hx Respiratory Disorders: No - NEUROLOGICAL Hx Neurological Disorder: No Hx Seizures: No - HEENT Hx HEENT Problems: Yes Other/Comment: right eye double vision if patch is off - RENAL Hx Chronic Kidney Disease: No Hx Kidney Stones: Yes - ENDOCRINE/METABOLIC Hx Endocrine Disorders: Yes Other/Comment: Graves disease - HEMATOLOGICAL/ONCOLOGICAL Hx Blood Disorders: No Hx Human Immunodeficiency Virus (HIV): No - INTEGUMENTARY Hx Dermatological Problems: No - MUSCULOSKELETAL/RHEUMATOLOGICAL Hx Musculoskeletal Disorders: No Hx Falls: No - GASTROINTESTINAL Hx Gastrointestinal Disorders: No - GENITOURINARY/GYNECOLOGICAL Hx Genitourinary Disorders: No Hx Sexually Transmitted Disorders: No - PSYCHIATRIC Hx Psychophysiologic Disorder: No Hx Substance Use: No - SURGICAL HISTORY Hx Surgeries: Yes Hx Thyroidectomy: Yes Other/Comment: CATARACT. partial gastrectomy (1949s) secondary to perforated gastric ulcer. - ANESTHESIA Hx Anesthesia: Yes Hx Anesthesia Reactions: No Hx Malignant Hyperthermia: No Meds Allergies/Adverse Reactions: Allergies Allergy/AdvReac Type Severity Reaction Status Date / Time No Known Allergies Allergy Verified 04/27/15 15:48 Physical Exam - Respiratory Exam Respiratory Exam: NORMAL BREATHING PATTERN - Cardiovascular Exam Cardiovascular Exam: REGULAR RHYTHM - GI/Abdominal Exam GI & Abdominal Exam: Normal Bowel Sounds Results - Vital Signs Recent Vital Signs: Last Vital Signs Temp 99.4 F 03/12/17 18:45 Pulse 68 03/12/17 18:45 Resp 20 03/12/17 18:45 BP 113/58 L 03/12/17 18:45 Pulse Ox 97 03/12/17 18:45 - Labs Result Diagrams: 03/12/17 06:00 03/12/17 06:00 Labs: Laboratory Results - last 24 hr 03/11/17 03/12/17 03/12/17 19:48 06:00 06:00 WBC 10.2 RBC 4.14 L Hgb 10.9 L Hct 32.9 L MCV 79.3 L MCH 26.2 L MCHC 33.0 RDW 16.5 H Plt Count 166 MPV 8.8 Neut % (Auto) 85.6 H Lymph % (Auto) 4.5 L [place] % (Auto) 9.0 Eos % (Auto) 0.6 Baso % (Auto) 0.3 Neut # 8.7 H Lymph # 0.5 L [place] # 0.9 H Eos # 0.1 Baso # 0.0 PT INR APTT Sodium 138 Potassium 3.5 L Chloride 109 H Carbon Dioxide 21 L Anion Gap 12 BUN 11 Creatinine 1.1 Est GFR ( Amer) > 60 Est GFR (Non-Af Amer) > 60 Random Glucose 100 Calcium 8.6 Total Bilirubin 3.5 H AST 127 H D ALT 213 H D Alkaline Phosphatase 109 Total Protein 5.8 L Albumin 3.2 L Globulin 2.5 Albumin/Globulin Ratio 1.3 Procalcitonin 0.64 H TSH 3rd Generation 0.21 L Blood Type Blood Type Confirm Antibody Screen Crossmatch BBK History Checked 03/12/17 03/12/17 03/12/17 06:00 06:00 07:26 WBC RBC Hgb Hct MCV MCH MCHC RDW Plt Count MPV Neut % (Auto) Lymph % (Auto) [place] % (Auto) Eos % (Auto) Baso % (Auto) Neut # Lymph # [place] # Eos # Baso # PT 14.7 H INR 1.4 H APTT 31.5 Sodium Potassium Chloride Carbon Dioxide Anion Gap BUN Creatinine Est GFR ( Amer) Est GFR (Non-Af Amer) Random Glucose Calcium Total Bilirubin AST ALT Alkaline Phosphatase Total Protein Albumin Globulin Albumin/Globulin Ratio Procalcitonin TSH 3rd Generation Blood Type O POSITIVE Blood Type Confirm O POSITIVE Antibody Screen Negative Crossmatch See Detail BBK History Checked No verified bt Assessment & Plan - Assessment and Plan (Free Text) Assessment: CBD stone Ascending cholangitis S/P partial gastrectomy ERCP in AM IV ABX NPO IVF GI surgery ID Thyroid dx Endo Smoker Hx PVD Cardiology Pulmonary - Date & Time Date: 03/12/17 Time: 22:22
[2017-03-12] MEDS: Gentamicin 80mg/50ml NS 80 MG/50 ML BAG IVPB SCH (22:00)
--- NOTE | 2017-03-12 23:45 | CP.PCM.PN ---
Subjective - Date & Time of Evaluation Date of Evaluation: 03/12/17 Time of Evaluation: 23:42 - Subjective Subjective: Still with RUQ pain and fever at times. Objective - Vital Signs/Intake and Output Vital Signs (last 24 hours): Temp Pulse Resp BP Pulse Ox 99.4 F 68 20 113/58 L 97 03/12/17 18:45 03/12/17 18:45 03/12/17 18:45 03/12/17 18:45 03/12/17 18:45 - Medications Medications: Current Medications Acetaminophen (Tylenol 325mg Tab) 650 mg PO Q4 PRN PRN Reason: Fever >100.4 F Last Admin: 03/12/17 16:31 Dose: 650 mg Artificial Tears (Artificial Tears) 2 drop OU QID PRN PRN Reason: Dry eyes Famotidine (Pepcid) 40 mg IVP DAILY [facility] Last Admin: 03/12/17 16:24 Dose: Not Given Hydromorphone HCl (Dilaudid) 0.5 mg IVP Q4 PRN PRN Reason: Pain, moderate (4-7) Lactated Ringer's (Lactated Ringer's) 1,000 mls @ 100 mls/hr IV .Q10H [facility] Last Admin: 03/12/17 16:26 Dose: Not Given Piperacillin Sod/Tazobactam (Sod 3.375 gm/ Sodium Chloride) 100 mls @ 100 mls/ hr IVPB Q6 [facility] Last Admin: 03/12/17 22:36 Dose: 100 mls/hr Potassium Chloride 20 meq/ (Sodium Chloride) 1,010 mls @ 60 mls/hr IV .[id number] [facility] Stop: 03/13/17 13:16 Last Admin: 03/12/17 16:31 Dose: 60 mls/hr Gentamicin Sulfate/Sodium Chloride (Gentamicin 80mg/50ml Ns) 80 mg in 50 mls @ 50 mls/hr IVPB Q12 [facility] Last Admin: 03/12/17 22:00 Dose: 50 mls/hr Ondansetron HCl (Zofran Inj) 4 mg IVP Q4 PRN PRN Reason: Nausea/Vomiting - Labs Labs: 03/12/17 06:00 03/12/17 06:00 PT 14.7 Seconds (9.8-13.1) H 03/12/17 06:00 INR 1.4 (0.9-1.2) H 03/12/17 06:00 APTT 31.5 Seconds (25.6-37.1) 03/12/17 06:00 - Head Exam Head Exam: ATRAUMATIC - Eye Exam Eye Exam: Normal appearance Pupil Exam: PERRL - Neck Exam Neck Exam: Full ROM - Respiratory Exam Respiratory Exam: Clear to Ausculation Bilateral - Cardiovascular Exam Cardiovascular Exam: REGULAR RHYTHM - GI/Abdominal Exam GI & Abdominal Exam: Soft, Tenderness, Normal Bowel Sounds Assessment and Plan (1) Choledocholithiasis Assessment & Plan: LFTs remain elevated and fever present. ERCP challenging due to previous Bilroth [address] Palencia who will perform ERCP Thursday Status: Acute
--- NOTE | 2017-03-13 03:51 | CON ---
ENDOCRINOLOGY CONSULT LOCATION: Room #407, bed #2. HISTORY OF PRESENT ILLNESS: This is a 76-year-old male, very well-known to me from outpatient endocrine followup and known history of Graves disease with hypothyroidism and now has been admitted with right-sided abdominal pain and concomitant fever, chills and leucocytosis and is being referred now for thyroid evaluation and management because of abnormal thyroid studies as noted. PAST MEDICAL AND SURGICAL HISTORY: Has a complicated and extensive GI history with a partial gastric resection and gastrojejunostomy and gastrojejunostomy undertaken for perforated gastric ulcerations some years ago. History of colonic polyposis and multiple colonoscopy procedures undertaken, also history of chronic obstructive pulmonary disease with nicotine dependence; history of Graves disease and previous thyroidectomy and also radioiodine ablation and currently with surgical hypothyroidism, on levothyroxine, given as 88 mcg daily; history of nephrolithiasis and previous renal colic as noted. 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 These procedures were all undertaken at the [facility] in [place]. FAMILY HISTORY: Positive for hypertension and heart disease. SOCIAL HISTORY: The patient lives alone, but has a very supportive daughter who is very attentive to his needs. Admits to longstanding nicotine dependence, consuming 1 to 2 packs a day for many years. Also, admits to prior alcohol use but has quit some years ago. REVIEW OF SYSTEMS: As mentioned above, admits to generalized body weakness with easy fatigability and tiredness and suboptimal energy level. Also, admits to frequent bifrontal headaches and visual blurring despite previous eye operations. Admits to occasional precordial chest pain with periodic shortness of breath, especially with exertion. His oral intake is variable and suboptimal with nausea, dyspepsia and recent severe right upper quadrant pain with fever, chills and generalized body weakness. PHYSICAL EXAMINATION GENERAL: This is an asthenic male, in no apparent distress. VITAL SIGNS: Blood pressure of 150/90; pulse of 100 beats per minute, regular; temperature 98 and respirations 20. Height is 5 feet 7 inches. Weight is 135 pounds. HEENT: Head normocephalic. Eyes: Anicteric with pink conjunctivae. Funduscopy not possible at this time. Ears, nose and throat otherwise normal. NECK: Neck is supple. There is a healed scar in the anterior neck area. No cervical adenopathy noted. HEART: Hyperdynamic precordium. S1 and S2 is rapid and regular. LUNGS: Clear to auscultation. ABDOMEN: Flat, soft with passive direct tenderness, but no evidence of rebound tenderness. Bowel sounds are present. EXTREMITIES: No peripheral edema. Pulses are +2 bilaterally. LABORATORY DATA: His initial WBC showed a level of 19.0, hemoglobin of 11, hematocrit of 36, MCV 80, platelets 215. The chemistry showed a BUN of 11, sodium 138, potassium 3.5, chloride 109, CO2 of 21, glucose 100, creatinine 1.1. He also has elevated liver function studies with an AST of 401, an ALT of 326 and initial TSH is 0.21. The latest TSH done a month ago was 1.04 and he was actually by chemically and clinically euthyroid on the outpatient. ASSESSMENT: This is a 76-year-old male with known history of surgical hypothyroidism, currently clinically euthyroid, on levothyroxine replacement therapy and had a suppressed TSH on admission which will be expected especially in the light of acute physical stresses with a superimposed acute sick euthyroid syndrome on the background of surgical hypothyroidism from prior thyroidectomy for underlying Graves disease. 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 Moreover, he has possible cholelithiasis with ongoing gastrointestinal and surgical workup and evaluation as noted. Moreover, he also has elevated liver transaminases as noted and with normal liver enzymes a month or so ago prior to admission. PLAN OF MANAGEMENT: We will hold off on the levothyroxine replacement therapy at this time to allow for dose equilibration and repeat a total T4, free T4 and TSH tomorrow and determine the need to restart him on the much lower dose of levothyroxine therapy as indicated. We will obtain serial chemistries and supplement accordingly as needed. We will also obtain serial thyroid studies and adjust his dose regimen accordingly. We will follow up with you. Pari Miller MD
[2017-03-13] MEDS: Piperacillin/Tazobact 3.375 GM in Sodium Chloride 0.9% 100 ML IVPB SCH ×4 (05:00→22:07)
[2017-03-13] MEDS: Potassium Chloride 20 MEQ in Sodium Chloride 0.45% 1,000 ML IV SCH (05:29)
[2017-03-13 06:30] LABS: ALKALINE PHOSPHATASE 119 U/L (38-126); ALT/SGPT 150 U/L (21-72); AST/SGOT 62 U/L (17-59); BILIRUBIN,TOTAL 1.9 mg/dl (0.2-1.3); BLOOD UREA NITROGEN 10 mg/dl (9-20); CALCIUM 8.6 mg/dL (8.4-10.2); CARBON DIOXIDE 21 mmol/L (22-30); CHLORIDE 108 mmol/L (98-107); GFR AFRICAN-AMERICAN > 60; GLUCOSE,RANDOM 99 mg/dL (75-110); POTASSIUM 3.5 MMOL/L (3.6-5.0); SODIUM 136 mmol/l (132-148); TOTAL PROTEIN 5.6 G/DL (6.3-8.2)
[2017-03-13 06:34] LABS: ALB/GLOB RATIO 1.2 (1.0-2.1)
[2017-03-13 06:48] LABS: BASO % 0.4 % (0.0-2.0); EOS # 0.3 K/uL (0.0-0.7); EOS % 3.3 % (0.0-4.0); HEMATOCRIT 31.7 % (35.0-51.0); LYMPH # 0.7 K/uL (1.0-4.3); LYMPH % 7.9 % (20.0-40.0); MEAN CELL VOLUME 79.2 fl (80.0-94.0); MEAN CORPUSCULAR HGB CONC 32.8 g/dL (33.0-37.0); MEAN PLATELET VOLUME 9.2 fl (7.2-11.7); MONO # 1.1 K/uL (0.0-0.8); MONO % 12.8 % (0.0-10.0); NEUT # 6.5 K/uL (1.8-7.0); NEUT % 75.6 % (50.0-75.0); NRBC % 0.1 % (0.0-0.0); RED CELL DISTRIBUTION WIDTH 16.8 % (11.5-14.5); WHITE BLOOD COUNT 8.6 K/uL (4.8-10.8)
--- NOTE | 2017-03-13 07:08 | CP.PCM.PN ---
Subjective - Date & Time of Evaluation Date of Evaluation: 03/13/17 Time of Evaluation: 06:55 - Subjective Subjective: General Surgery- Dr. Carter Pt S&E at bedside this AM. No acute events overnight. Pt having continued RUQ pain. Denies F/C CP/SOB Objective - Vital Signs/Intake and Output Vital Signs (last 24 hours): Temp Pulse Resp BP Pulse Ox 99.1 F 58 L 18 131/63 96 03/13/17 05:42 03/13/17 05:00 03/13/17 05:00 03/13/17 05:00 03/13/17 05:00 Intake and Output: 03/13/17 03/13/17 06:59 18:59 Intake Total 970 Output Total 750 Balance 220 - Medications Medications: Current Medications Acetaminophen (Tylenol 325mg Tab) 650 mg PO Q4 PRN PRN Reason: Fever >100.4 F Last Admin: 03/12/17 16:31 Dose: 650 mg Artificial Tears (Artificial Tears) 2 drop OU QID PRN PRN Reason: Dry eyes Famotidine (Pepcid) 40 mg IVP DAILY [facility] Last Admin: 03/12/17 16:24 Dose: Not Given Hydromorphone HCl (Dilaudid) 0.5 mg IVP Q4 PRN PRN Reason: Pain, moderate (4-7) Lactated Ringer's (Lactated Ringer's) 1,000 mls @ 100 mls/hr IV .Q10H [facility] Last Admin: 03/12/17 16:26 Dose: Not Given Piperacillin Sod/Tazobactam (Sod 3.375 gm/ Sodium Chloride) 100 mls @ 100 mls/ hr IVPB Q6 [facility] Last Admin: 03/13/17 05:00 Dose: 100 mls/hr Potassium Chloride 20 meq/ (Sodium Chloride) 1,010 mls @ 60 mls/hr IV .[id number] [facility] Stop: 03/13/17 13:16 Last Admin: 03/13/17 05:29 Dose: 60 mls/hr Gentamicin Sulfate/Sodium Chloride (Gentamicin 80mg/50ml Ns) 80 mg in 50 mls @ 50 mls/hr IVPB Q12 [facility] Last Admin: 03/12/17 22:00 Dose: 50 mls/hr Ondansetron HCl (Zofran Inj) 4 mg IVP Q4 PRN PRN Reason: Nausea/Vomiting - Labs Labs: 03/12/17 06:00 03/13/17 05:55 PT 11.6 Seconds (9.8-13.1) 03/13/17 05:55 INR 1.1 (0.9-1.2) 03/13/17 05:55 APTT 31.5 Seconds (25.6-37.1) 03/12/17 06:00 - Constitutional Appears: No Acute Distress - Eye Exam Additional comments: Eye patch over Left eye - Respiratory Exam Respiratory Exam: NORMAL BREATHING PATTERN. absent: Accessory Muscle Use, Rhonchi, Wheezes - Cardiovascular Exam Cardiovascular Exam: +S1, +S2 - GI/Abdominal Exam GI & Abdominal Exam: Soft, Tenderness - Extremities Exam Extremities Exam: absent: Calf Tenderness - Neurological Exam Neurological Exam: Alert, Awake, Oriented x3 - Psychiatric Exam Psychiatric exam: Normal Affect Assessment and Plan - Assessment and Plan (Free Text) Assessment: 76M psh of gastrectomy w/ cholangitis and choledocholithiasis Plan: - ERCP today at [facility] - IVF/abx - IVFs - NPO - T.Bili trending downward. Plan for cholecystectomy at a later date - further recs per Dr. Raul Bo PGY1
[2017-03-13 07:30] LABS: THYROID STIMULATING HORMONE 1.08 mIU/ML (0.46-4.68)
[2017-03-13 08:16] LABS: T4 5.75 ug/dl (5.5-11.0)
[2017-03-13] MEDS: Gentamicin 80mg/50ml NS 80 MG/50 ML BAG IVPB SCH ×2 (09:53→20:13)
[2017-03-13] MEDS: Lactated Ringer's 1,000 ML IV SCH (09:54)
--- NOTE | 2017-03-13 10:58 | CP.PCM.CON ---
History of Present Illness - History of Present Illness History of Present Illness: 76 yo male admitted with Cholangitis, s/p Bilroth 2, PUD, Gasric Perforation, Gram negative sepsis for ERCP today. Asked for preoperative assessment. Unable to examine due to procedure. Pt was seen in my office 13 yrs ago and has not had f/u evaluation. ECHO done 03/12/17 with normal LV function. EKG NSR with nonspecific st-t changes Past Patient History - Past Medical History & Family History Past Medical History?: Yes - Past Social History Smoking Status: Heavy Smoker > 10 Cigarettes Daily - CARDIAC Hx Cardiac Disorders: Yes Hx Hypercholesterolemia: Yes Hx Hypertension: No - PULMONARY Hx Respiratory Disorders: No - NEUROLOGICAL Hx Neurological Disorder: No Hx Seizures: No - HEENT Hx HEENT Problems: Yes Other/Comment: right eye double vision if patch is off - RENAL Hx Chronic Kidney Disease: No Hx Kidney Stones: Yes - ENDOCRINE/METABOLIC Hx Endocrine Disorders: Yes Other/Comment: Graves disease - HEMATOLOGICAL/ONCOLOGICAL Hx Blood Disorders: No Hx Human Immunodeficiency Virus (HIV): No - INTEGUMENTARY Hx Dermatological Problems: No - MUSCULOSKELETAL/RHEUMATOLOGICAL Hx Musculoskeletal Disorders: No Hx Falls: No - GASTROINTESTINAL Hx Gastrointestinal Disorders: No - GENITOURINARY/GYNECOLOGICAL Hx Genitourinary Disorders: No Hx Sexually Transmitted Disorders: No - PSYCHIATRIC Hx Psychophysiologic Disorder: No Hx Substance Use: No - SURGICAL HISTORY Hx Surgeries: Yes Hx Thyroidectomy: Yes Other/Comment: CATARACT. partial gastrectomy (1950s) secondary to perforated gastric ulcer. - ANESTHESIA Hx Anesthesia: Yes Hx Anesthesia Reactions: No Hx Malignant Hyperthermia: No Meds Allergies/Adverse Reactions: Allergies Allergy/AdvReac Type Severity Reaction Status Date / Time No Known Allergies Allergy Verified 04/27/15 15:48 - Medications Medications: Current Medications Acetaminophen (Tylenol 325mg Tab) 650 mg PO Q4 PRN PRN Reason: Fever >100.4 F Last Admin: 03/13/17 08:14 Dose: 650 mg Artificial Tears (Artificial Tears) 2 drop OU QID PRN PRN Reason: Dry eyes Famotidine (Pepcid) 40 mg IVP DAILY [facility] Last Admin: 03/13/17 08:16 Dose: 40 mg Hydromorphone HCl (Dilaudid) 0.5 mg IVP Q4 PRN PRN Reason: Pain, moderate (4-7) Lactated Ringer's (Lactated Ringer's) 1,000 mls @ 100 mls/hr IV .Q10H [facility] Last Admin: 03/13/17 09:54 Dose: Not Given Piperacillin Sod/Tazobactam (Sod 3.375 gm/ Sodium Chloride) 100 mls @ 100 mls/ hr IVPB Q6 [facility] Last Admin: 03/13/17 09:55 Dose: Not Given Potassium Chloride 20 meq/ (Sodium Chloride) 1,010 mls @ 60 mls/hr IV .[id number] [facility] Stop: 03/13/17 13:16 Last Admin: 03/13/17 05:29 Dose: 60 mls/hr Gentamicin Sulfate/Sodium Chloride (Gentamicin 80mg/50ml Ns) 80 mg in 50 mls @ 50 mls/hr IVPB Q12 [facility] Last Admin: 03/13/17 09:53 Dose: Not Given Ondansetron HCl (Zofran Inj) 4 mg IVP Q4 PRN PRN Reason: Nausea/Vomiting Results - Vital Signs Recent Vital Signs: Last Vital Signs Temp 98.4 F 03/13/17 09:14 Pulse 50 L 03/13/17 09:00 Resp 20 03/13/17 09:00 BP 147/57 L 03/13/17 09:00 Pulse Ox 96 03/13/17 09:00 - Labs Result Diagrams: 03/13/17 05:55 03/13/17 05:55 Labs: Laboratory Results - last 24 hr 03/11/17 03/13/17 03/13/17 19:48 05:55 05:55 WBC 8.6 RBC 4.00 L Hgb 10.4 L Hct 31.7 L MCV 79.2 L MCH 26.0 L MCHC 32.8 L RDW 16.8 H Plt Count 166 MPV 9.2 Neut % (Auto) 75.6 H Lymph % (Auto) 7.9 L [place] % (Auto) 12.8 H Eos % (Auto) 3.3 Baso % (Auto) 0.4 Neut # 6.5 Lymph # 0.7 L [place] # 1.1 H Eos # 0.3 Baso # 0.0 PT INR Sodium 136 Potassium 3.5 L Chloride 108 H Carbon Dioxide 21 L Anion Gap 11 BUN 10 Creatinine 1.0 Est GFR ( Amer) > 60 Est GFR (Non-Af Amer) > 60 Random Glucose 99 Calcium 8.6 Total Bilirubin 1.9 H AST 62 H D ALT 150 H D Alkaline Phosphatase 119 Total Protein 5.6 L Albumin 3.1 L Globulin 2.5 Albumin/Globulin Ratio 1.2 Procalcitonin 0.64 H Free T4 Thyroxine (T4) 5.75 TSH 3rd Generation 1.08 03/13/17 03/13/17 05:55 05:55 WBC RBC Hgb Hct MCV MCH MCHC RDW Plt Count MPV Neut % (Auto) Lymph % (Auto) [place] % (Auto) Eos % (Auto) Baso % (Auto) Neut # Lymph # [place] # Eos # Baso # PT 11.6 INR 1.1 Sodium Potassium Chloride Carbon Dioxide Anion Gap BUN Creatinine Est GFR ( Amer) Est GFR (Non-Af Amer) Random Glucose Calcium Total Bilirubin AST ALT Alkaline Phosphatase Total Protein Albumin Globulin Albumin/Globulin Ratio Procalcitonin Free T4 1.11 Thyroxine (T4) TSH 3rd Generation Assessment & Plan - Assessment and Plan (Free Text) Assessment: Pt at acceptable risk for surgery normal LV function and no acute electrocardiographic changes Unable to examine due to ERCP Would not delay surgical procedure from cardiology standpoint if indicated due to ongoing sepsis and complicated clinical course
--- NOTE | 2017-03-13 13:35 | CP.PCM.PN ---
Subjective - Date & Time of Evaluation Date of Evaluation: 03/13/17 Time of Evaluation: 07:00 - Subjective Subjective: DISCUSSED ON ROUNDS IV RX IN PROGRESS GENTA ADDED PENDING ID OF BLOOD ISOLATE HAVING ERCP AT 76 y/o male w/PMH of gastrectomy presenting with cholangitis and choledocholithiasis US yesterday showed gallstones, mild pericholecystic fluid, and CBD of 6.0mm with CBD mass concerning for stone MRCP demonstrated choledocholithiasis and pericholecystic fluid Objective - Vital Signs/Intake and Output Vital Signs (last 24 hours): Temp Pulse Resp BP Pulse Ox 98.4 F 50 L 20 147/57 L 96 03/13/17 09:14 03/13/17 09:00 03/13/17 09:00 03/13/17 09:00 03/13/17 09:00 Intake and Output: 03/13/17 03/13/17 06:59 18:59 Intake Total 970 Output Total 750 Balance 220 - Medications Medications: Current Medications Acetaminophen (Tylenol 325mg Tab) 650 mg PO Q4 PRN PRN Reason: Fever >100.4 F Last Admin: 03/13/17 08:14 Dose: 650 mg Artificial Tears (Artificial Tears) 2 drop OU QID PRN PRN Reason: Dry eyes Famotidine (Pepcid) 40 mg IVP DAILY [facility] Last Admin: 03/13/17 08:16 Dose: 40 mg Hydromorphone HCl (Dilaudid) 0.5 mg IVP Q4 PRN PRN Reason: Pain, moderate (4-7) Lactated Ringer's (Lactated Ringer's) 1,000 mls @ 100 mls/hr IV .Q10H [facility] Last Admin: 03/13/17 09:54 Dose: Not Given Piperacillin Sod/Tazobactam (Sod 3.375 gm/ Sodium Chloride) 100 mls @ 100 mls/ hr IVPB Q6 [facility] Last Admin: 03/13/17 09:55 Dose: Not Given Gentamicin Sulfate/Sodium Chloride (Gentamicin 80mg/50ml Ns) 80 mg in 50 mls @ 50 mls/hr IVPB Q12 [facility] Last Admin: 03/13/17 09:53 Dose: Not Given Ondansetron HCl (Zofran Inj) 4 mg IVP Q4 PRN PRN Reason: Nausea/Vomiting - Labs Labs: 03/13/17 05:55 03/13/17 05:55 PT 11.6 Seconds (9.8-13.1) 03/13/17 05:55 INR 1.1 (0.9-1.2) 03/13/17 05:55 APTT 31.5 Seconds (25.6-37.1) 03/12/17 06:00 Assessment and Plan - Assessment and Plan (Free Text) Plan: 76 y/o male w/PMH of gastrectomy presenting with cholangitis and choledocholithiasis US yesterday showed gallstones, mild pericholecystic fluid, and CBD of 6.0mm with CBD mass concerning for stone MRCP demonstrated choledocholithiasis and pericholecystic fluid WENT FOR ERCP CONT IV ANTIBIOTICS SURGICAL RE-EVAL
[2017-03-13] MEDS ORDERED: Lactated Ringer's 500 ML IV SCH (15:30)
--- NOTE | 2017-03-13 17:18 | CP.PCM.PN ---
Subjective - Date & Time of Evaluation Date of Evaluation: 03/13/17 Time of Evaluation: 17:14 - Subjective Subjective: Patient awake and alert. Feels comfortable. Objective - Vital Signs/Intake and Output Vital Signs (last 24 hours): Temp Pulse Resp BP Pulse Ox 98.4 F 50 L 20 147/57 L 96 03/13/17 09:14 03/13/17 09:00 03/13/17 09:00 03/13/17 09:00 03/13/17 09:00 Intake and Output: 03/13/17 03/13/17 06:59 18:59 Intake Total 970 Output Total 750 Balance 220 - Medications Medications: Current Medications Acetaminophen (Tylenol 325mg Tab) 650 mg PO Q4 PRN PRN Reason: Fever >100.4 F Last Admin: 03/13/17 08:14 Dose: 650 mg Artificial Tears (Artificial Tears) 2 drop OU QID PRN PRN Reason: Dry eyes Famotidine (Pepcid) 40 mg IVP DAILY [facility] Last Admin: 03/13/17 08:16 Dose: 40 mg Hydromorphone HCl (Dilaudid) 0.5 mg IVP Q4 PRN PRN Reason: Pain, moderate (4-7) Lactated Ringer's (Lactated Ringer's) 1,000 mls @ 100 mls/hr IV .Q10H [facility] Last Admin: 03/13/17 09:54 Dose: Not Given Piperacillin Sod/Tazobactam (Sod 3.375 gm/ Sodium Chloride) 100 mls @ 100 mls/ hr IVPB Q6 [facility] Last Admin: 03/13/17 09:55 Dose: Not Given Gentamicin Sulfate/Sodium Chloride (Gentamicin 80mg/50ml Ns) 80 mg in 50 mls @ 50 mls/hr IVPB Q12 [facility] Last Admin: 03/13/17 09:53 Dose: Not Given Levothyroxine Sodium (Synthroid) 88 mcg PO DAILY@0630 [facility] Ondansetron HCl (Zofran Inj) 4 mg IVP Q4 PRN PRN Reason: Nausea/Vomiting - Labs Labs: 03/13/17 05:55 03/13/17 05:55 PT 11.6 Seconds (9.8-13.1) 03/13/17 05:55 INR 1.1 (0.9-1.2) 03/13/17 05:55 APTT 31.5 Seconds (25.6-37.1) 03/12/17 06:00 - Head Exam Head Exam: ATRAUMATIC - Eye Exam Eye Exam: Normal appearance - ENT Exam ENT Exam: Normal Exam - Neck Exam Neck Exam: Normal Inspection - Respiratory Exam Respiratory Exam: Clear to Ausculation Bilateral - Cardiovascular Exam Cardiovascular Exam: REGULAR RHYTHM, +S1, +S2 - GI/Abdominal Exam GI & Abdominal Exam: Soft, Normal Bowel Sounds. absent: Tenderness Assessment and Plan (1) Choledocholithiasis Assessment & Plan: Patient s/p ERCP with stent placement. As per the report there were multiple CBD stones and a 7 Fr plastic stent was placed. He will need to have an additional ERCP within 2 months, otherwise the stent will get clogged and cholangitis could reoccur. Has multiple gallbladder stones to be managed as per surgery. Status: Acute
--- NOTE | 2017-03-13 19:16 | CP.PCM.PN ---
Subjective - Date & Time of Evaluation Date of Evaluation: 03/13/17 Time of Evaluation: 22:22 - Subjective Subjective: ERCP today Objective - Vital Signs/Intake and Output Vital Signs (last 24 hours): Temp Pulse Resp BP Pulse Ox 98.4 F 50 L 20 147/57 L 96 03/13/17 09:14 03/13/17 09:00 03/13/17 09:00 03/13/17 09:00 03/13/17 09:00 - Medications Medications: Current Medications Acetaminophen (Tylenol 325mg Tab) 650 mg PO Q4 PRN PRN Reason: Fever >100.4 F Last Admin: 03/13/17 08:14 Dose: 650 mg Artificial Tears (Artificial Tears) 2 drop OU QID PRN PRN Reason: Dry eyes Famotidine (Pepcid) 40 mg IVP DAILY [facility] Last Admin: 03/13/17 08:16 Dose: 40 mg Hydromorphone HCl (Dilaudid) 0.5 mg IVP Q4 PRN PRN Reason: Pain, moderate (4-7) Lactated Ringer's (Lactated Ringer's) 1,000 mls @ 100 mls/hr IV .Q10H [facility] Last Admin: 03/13/17 09:54 Dose: Not Given Piperacillin Sod/Tazobactam (Sod 3.375 gm/ Sodium Chloride) 100 mls @ 100 mls/ hr IVPB Q6 [facility] Last Admin: 03/13/17 17:13 Dose: 100 mls/hr Gentamicin Sulfate/Sodium Chloride (Gentamicin 80mg/50ml Ns) 80 mg in 50 mls @ 50 mls/hr IVPB Q12 [facility] Last Admin: 03/13/17 09:53 Dose: Not Given Levothyroxine Sodium (Synthroid) 88 mcg PO DAILY@0630 [facility] Ondansetron HCl (Zofran Inj) 4 mg IVP Q4 PRN PRN Reason: Nausea/Vomiting - Labs Labs: 03/13/17 05:55 03/13/17 05:55 PT 11.6 Seconds (9.8-13.1) 03/13/17 05:55 INR 1.1 (0.9-1.2) 03/13/17 05:55 APTT 31.5 Seconds (25.6-37.1) 03/12/17 06:00 - Respiratory Exam Respiratory Exam: Clear to Ausculation Bilateral, Wheezes, NORMAL BREATHING PATTERN - Cardiovascular Exam Cardiovascular Exam: REGULAR RHYTHM - GI/Abdominal Exam GI & Abdominal Exam: Normal Bowel Sounds Assessment and Plan - Assessment and Plan (Free Text) Assessment: S/P ERCP Stent CBD stone Ascending cholangitis Cholelithiasis IV ABX IVF GI surgery ID Thyroid dx Endo Smoker Hx PVD Cardiology Pulmonary
--- NOTE | 2017-03-14 00:04 | PN ---
ENDOCRINE FOLLOWUP NOTE Room: 407 This is a 76-year-old male presenting here with diffuse abdominal pain and currently undergoing GI workup and management and is also being followed closely for metabolic management because of known history of surgical hypothyroidism. His latest chemistries showed a BUN of 10, sodium 136, potassium 3.5, chloride 108 CO2 21, glucose 99 and creatinine 1. He also has elevated liver transaminases as noted. The latest thyroid study showed a T4 of 5.75 with a TSH of 1.08 and a free T4 of 1.11, so at this time we will restart once again his levothyroxine replacement therapy given as 88 units once daily in the morning as ordered. We will obtain serial chemistries and supplement accordingly as needed. We will follow. Pari Miller MD
[2017-03-14] MEDS: Piperacillin/Tazobact 3.375 GM in Sodium Chloride 0.9% 100 ML IVPB SCH ×4 (04:21→21:05)
[2017-03-14] MEDS: Levothyroxine 88 MCG TAB PO SCH (05:31)
[2017-03-14 06:32] LABS: BASO % 0.8 % (0.0-2.0); EOS # 0.3 K/uL (0.0-0.7); HEMATOCRIT 31.1 % (35.0-51.0); LYMPH # 0.7 K/uL (1.0-4.3); LYMPH % 10.6 % (20.0-40.0); MEAN CELL VOLUME 79.7 fl (80.0-94.0); MEAN CORPUSCULAR HEMOGLOBIN 25.7 pg (27.0-31.0); MEAN CORPUSCULAR HGB CONC 32.2 g/dL (33.0-37.0); MEAN PLATELET VOLUME 9.3 fl (7.2-11.7); MONO # 0.9 K/uL (0.0-0.8); MONO % 13.7 % (0.0-10.0); NEUT # 4.5 K/uL (1.8-7.0); NEUT % 70.9 % (50.0-75.0); RED CELL DISTRIBUTION WIDTH 16.9 % (11.5-14.5); WHITE BLOOD COUNT 6.3 K/uL (4.8-10.8)
[2017-03-14 06:49] LABS: ALB/GLOB RATIO 1.1 (1.0-2.1); ALKALINE PHOSPHATASE 146 U/L (38-126); ALT/SGPT 111 U/L (21-72); AST/SGOT 46 U/L (17-59); BILIRUBIN,TOTAL 1.5 mg/dl (0.2-1.3); BLOOD UREA NITROGEN 10 mg/dl (9-20); CALCIUM 8.7 mg/dL (8.4-10.2); CARBON DIOXIDE 23 mmol/L (22-30); CHLORIDE 108 mmol/L (98-107); GFR AFRICAN-AMERICAN > 60; GLUCOSE,RANDOM 133 mg/dL (75-110); LIPASE 543 U/L (23-300); SODIUM 139 mmol/l (132-148); TOTAL PROTEIN 5.7 G/DL (6.3-8.2)
--- NOTE | 2017-03-14 08:37 | CARD ---
APPROVED REPORT EKG Measurement Heart [id number] <Conclusion> Sinus bradycardia Otherwise normal ECG
[2017-03-14] MEDS: Gentamicin 80mg/50ml NS 80 MG/50 ML BAG IVPB SCH (09:04)
--- NOTE | 2017-03-14 09:22 | CP.PCM.PN ---
Subjective - Date & Time of Evaluation Date of Evaluation: 03/14/17 Time of Evaluation: 08:00 - Subjective Subjective: Pt seen & examined at bedside. Pt tolerated CLD. Pt denies pain, N/V, F/C. Objective - Vital Signs/Intake and Output Vital Signs (last 24 hours): Temp Pulse Resp BP Pulse Ox 98.1 F 45 L 20 124/55 L 98 03/14/17 08:18 03/14/17 08:18 03/14/17 08:18 03/14/17 08:18 03/14/17 08:18 Intake and Output: 03/14/17 03/14/17 06:59 18:59 Intake Total 1040 Output Total 830 Balance 210 - Medications Medications: Current Medications Acetaminophen (Tylenol 325mg Tab) 650 mg PO Q4 PRN PRN Reason: Fever >100.4 F Last Admin: 03/13/17 08:14 Dose: 650 mg Artificial Tears (Artificial Tears) 2 drop OU QID PRN PRN Reason: Dry eyes Last Admin: 03/14/17 05:30 Dose: 2 drop Famotidine (Pepcid) 40 mg IVP DAILY [facility] Last Admin: 03/14/17 09:02 Dose: 40 mg Finasteride (Proscar) 5 mg PO DAILY [facility] Last Admin: 03/14/17 09:08 Dose: 5 mg Hydromorphone HCl (Dilaudid) 0.5 mg IVP Q4 PRN PRN Reason: Pain, moderate (4-7) Piperacillin Sod/Tazobactam (Sod 3.375 gm/ Sodium Chloride) 100 mls @ 100 mls/ hr IVPB Q6 [facility] Last Admin: 03/14/17 09:10 Dose: 100 mls/hr Gentamicin Sulfate/Sodium Chloride (Gentamicin 80mg/50ml Ns) 80 mg in 50 mls @ 50 mls/hr IVPB Q12 [facility] Last Admin: 03/14/17 09:04 Dose: 50 mls/hr Lactated Ringer's (Lactated Ringer's) 1,000 mls @ 100 mls/hr IV .Q10H [facility] Levothyroxine Sodium (Synthroid) 88 mcg PO DAILY@0630 [facility] Last Admin: 03/14/17 05:31 Dose: 88 mcg Ondansetron HCl (Zofran Inj) 4 mg IVP Q4 PRN PRN Reason: Nausea/Vomiting Prednisone (Prednisone Tab) 5 mg PO DAILY [facility] Last Admin: 03/14/17 09:08 Dose: 5 mg Tamsulosin HCl (Flomax) 0.8 mg PO DAILY [facility] Last Admin: 03/14/17 09:08 Dose: 0.8 mg - Labs Labs: 03/14/17 05:30 03/14/17 05:30 PT 11.6 Seconds (9.8-13.1) 03/13/17 05:55 INR 1.1 (0.9-1.2) 03/13/17 05:55 APTT 31.5 Seconds (25.6-37.1) 03/12/17 06:00 - Constitutional Appears: Non-toxic, No Acute Distress - Head Exam Head Exam: ATRAUMATIC, NORMOCEPHALIC - Eye Exam Eye Exam: absent: Conjunctival injection, Scleral icterus - ENT Exam ENT Exam: Mucous Membranes Moist, Normal Exam - Respiratory Exam Respiratory Exam: NORMAL BREATHING PATTERN. absent: Accessory Muscle Use, Respiratory Distress - Cardiovascular Exam Cardiovascular Exam: RRR - GI/Abdominal Exam GI & Abdominal Exam: Soft, Tenderness (RUQ). absent: Distended - Extremities Exam Extremities Exam: absent: Calf Tenderness, Pedal Edema, Tenderness - Neurological Exam Neurological Exam: Alert, Awake, Oriented x3 - Psychiatric Exam Psychiatric exam: Normal Affect, Normal Mood - Skin Skin Exam: Dry, Normal Color, Warm Assessment and Plan - Assessment and Plan (Free Text) Assessment: Assessment: 76 M, cholangitis & choledocholithiasis -ERCP (03/13/17, [facility]): Stones in CBD and gallbladder. PD and CBD stents placed & sphincterotomy. -T.bili continues to trend downward -Lipase increased to 543 -Tolerating CLD Plan: -Advance to heart healthy diet as tolerated -IVFs -Monitor CBC, CMP -Continue IV antibiotics -No surgical intervention indicated at this time. Possible future cholecystectomy after cholangitis has resolved Discussed with attending. Yesenia Domínguez, PGY2
--- NOTE | 2017-03-14 10:54 | CP.PCM.PN ---
<Sumanth Mojica - Last Filed: 03/14/17 10:57> Subjective - Date & Time of Evaluation Date of Evaluation: 03/14/17 Time of Evaluation: 08:15 - Subjective Subjective: PGY4 GI Follow-up Pt seen and examined bedside No complaints denies any abd pain tolerating diet denies any BM Denies any nausea, Vomiting or diarrhea ROS: 10 point ROS conducted, neg other than above Objective - Vital Signs/Intake and Output Vital Signs (last 24 hours): Temp Pulse Resp BP Pulse Ox 98.1 F 45 L 20 124/55 L 98 03/14/17 08:18 03/14/17 08:18 03/14/17 08:18 03/14/17 08:18 03/14/17 08:18 Intake and Output: 03/14/17 03/14/17 06:59 18:59 Intake Total 1040 Output Total 830 Balance 210 - Medications Medications: Current Medications Acetaminophen (Tylenol 325mg Tab) 650 mg PO Q4 PRN PRN Reason: Fever >100.4 F Last Admin: 03/13/17 08:14 Dose: 650 mg Artificial Tears (Artificial Tears) 2 drop OU QID PRN PRN Reason: Dry eyes Last Admin: 03/14/17 05:30 Dose: 2 drop Famotidine (Pepcid) 40 mg IVP DAILY [facility] Last Admin: 03/14/17 09:02 Dose: 40 mg Finasteride (Proscar) 5 mg PO DAILY [facility] Last Admin: 03/14/17 09:08 Dose: 5 mg Hydromorphone HCl (Dilaudid) 0.5 mg IVP Q4 PRN PRN Reason: Pain, moderate (4-7) Piperacillin Sod/Tazobactam (Sod 3.375 gm/ Sodium Chloride) 100 mls @ 100 mls/ hr IVPB Q6 [facility] Last Admin: 03/14/17 09:10 Dose: 100 mls/hr Gentamicin Sulfate/Sodium Chloride (Gentamicin 80mg/50ml Ns) 80 mg in 50 mls @ 50 mls/hr IVPB Q12 [facility] Last Admin: 03/14/17 09:04 Dose: 50 mls/hr Lactated Ringer's (Lactated Ringer's) 1,000 mls @ 100 mls/hr IV .Q10H [facility] Levothyroxine Sodium (Synthroid) 88 mcg PO DAILY@0630 [facility] Last Admin: 03/14/17 05:31 Dose: 88 mcg Ondansetron HCl (Zofran Inj) 4 mg IVP Q4 PRN PRN Reason: Nausea/Vomiting Prednisone (Prednisone Tab) 5 mg PO DAILY [facility] Last Admin: 03/14/17 09:08 Dose: 5 mg Tamsulosin HCl (Flomax) 0.8 mg PO DAILY [facility] Last Admin: 03/14/17 09:08 Dose: 0.8 mg - Labs Labs: 03/14/17 05:30 03/14/17 05:30 PT 11.6 Seconds (9.8-13.1) 03/13/17 05:55 INR 1.1 (0.9-1.2) 03/13/17 05:55 APTT 31.5 Seconds (25.6-37.1) 03/12/17 06:00 - Constitutional Appears: Non-toxic, No Acute Distress - Head Exam Head Exam: ATRAUMATIC, NORMOCEPHALIC - Eye Exam Eye Exam: Normal appearance - ENT Exam ENT Exam: Mucous Membranes Moist - Neck Exam Neck Exam: Normal Inspection - Respiratory Exam Respiratory Exam: Clear to Ausculation Bilateral, NORMAL BREATHING PATTERN. absent: Rales, Rhonchi, Wheezes - Cardiovascular Exam Cardiovascular Exam: REGULAR RHYTHM, +S1, +S2 - GI/Abdominal Exam GI & Abdominal Exam: Soft, Normal Bowel Sounds. absent: Guarding, Rigid, Tenderness, Organomegaly - Extremities Exam Extremities Exam: absent: Pedal Edema - Neurological Exam Neurological Exam: Alert, Awake, Oriented x3 Assessment and Plan - Assessment and Plan (Free Text) Assessment: Lucas Hubbard is a 76M w/ hx of HTN, COPD, PUD s/p partial gastrectomy and Billroth2 who presents to the Er with complaints of RUQ and sepsis. With elevated LFTs and bilirubin with abd MRCP, pt likely has Cholangitis. s/p sphincterotomy and stent placement 1. Cholangitis 2. Hx of Billroth2 3. Hx of PUD 4. HX of Gastric perforation Plan: -continue imepenem -abx as per ID -blood cultures reveal heavy gram neg growth, likely GI source -advance diet as tolerated -Continue to monitor BP -if pt worsens, consider transfer to ICU, though remains afebrile -LFTs improving -CBC, CMP, INR in the AM -will sign off for now -repeat ercp in 1-2 months D/W Dr. Palencia <Isaac Palencia - Last Filed: 03/14/17 12:03> Objective - Vital Signs/Intake and Output Vital Signs (last 24 hours): Temp Pulse Resp BP Pulse Ox 97.9 F 49 L 20 127/53 L 95 03/14/17 11:53 03/14/17 11:53 03/14/17 11:53 03/14/17 11:53 03/14/17 11:53 Intake and Output: 03/14/17 03/14/17 06:59 18:59 Intake Total 1040 Output Total 830 Balance 210 - Medications Medications: Current Medications Acetaminophen (Tylenol 325mg Tab) 650 mg PO Q4 PRN PRN Reason: Fever >100.4 F Last Admin: 03/13/17 08:14 Dose: 650 mg Artificial Tears (Artificial Tears) 2 drop OU QID PRN PRN Reason: Dry eyes Last Admin: 03/14/17 05:30 Dose: 2 drop Famotidine (Pepcid) 40 mg IVP DAILY [facility] Last Admin: 03/14/17 09:02 Dose: 40 mg Finasteride (Proscar) 5 mg PO DAILY [facility] Last Admin: 03/14/17 09:08 Dose: 5 mg Hydromorphone HCl (Dilaudid) 0.5 mg IVP Q4 PRN PRN Reason: Pain, moderate (4-7) Piperacillin Sod/Tazobactam (Sod 3.375 gm/ Sodium Chloride) 100 mls @ 100 mls/ hr IVPB Q6 [facility] Last Admin: 03/14/17 09:10 Dose: 100 mls/hr Gentamicin Sulfate/Sodium Chloride (Gentamicin 80mg/50ml Ns) 80 mg in 50 mls @ 50 mls/hr IVPB Q12 [facility] Last Admin: 03/14/17 09:04 Dose: 50 mls/hr Lactated Ringer's (Lactated Ringer's) 1,000 mls @ 100 mls/hr IV .Q10H [facility] Levothyroxine Sodium (Synthroid) 88 mcg PO DAILY@0630 [facility] Last Admin: 03/14/17 05:31 Dose: 88 mcg Ondansetron HCl (Zofran Inj) 4 mg IVP Q4 PRN PRN Reason: Nausea/Vomiting Prednisone (Prednisone Tab) 5 mg PO DAILY [facility] Last Admin: 03/14/17 09:08 Dose: 5 mg Tamsulosin HCl (Flomax) 0.8 mg PO DAILY [facility] Last Admin: 03/14/17 09:08 Dose: 0.8 mg - Labs Labs: 03/14/17 05:30 03/14/17 05:30 PT 11.6 Seconds (9.8-13.1) 03/13/17 05:55 INR 1.1 (0.9-1.2) 03/13/17 05:55 APTT 31.5 Seconds (25.6-37.1) 03/12/17 06:00 Attending/Attestation - Attestation I have personally seen and examined this patient.: Yes I have fully participated in the care of the patient.: Yes I have reviewed all pertinent clinical information, including history, physical exam and plan: Yes Notes (Text): 03/14/17 12:01 76 year old male with h/o Billroth II gastrectomy who presents with acute cholangitis due to choledocholithiasis. 1. Acute cholangitis 2. Choledocholithiasis 3. Cholelithiasis Plan: -s/p ERCP with precut sphincterotomy and CBD stent placed with good biliary drainage -continue antibiotics for 2 weeks -diet as tolerated -no signs of complications -ok for discharge -needs outpatient repeat ERCP in 1-2 months for stone extraction/stent removal -elective cholecystectomy advised
--- NOTE | 2017-03-14 21:26 | PN ---
DATE: ENDO FOLLOWUP NOTE LOCATION: Room 407. SUBJECTIVE: This is a 76-year-old male with known history of surgical hypothyroidism, currently taking levothyroxine at 88 mcg daily and now admitted with diffuse abdominal pain and undergoing GI workup at this time. His oral intake remains suboptimal and variable at this time as noted. So, his GI workup with an abdominal ultrasound showed the presence of cholelithiasis and confirmed by MRCP to have choledocholithiasis and pericholecystic fluid. He has a prior history of gastrectomy as noted. He will be actually scheduled for ERCP to be done at [facility] as noted. His diet has been advanced. He is tolerating the diet fairly well as given. LABORATORY DATA: His latest chemistry showed a BUN of 10, sodium 139, potassium 4.0, chloride 108, CO2 of 23, glucose 133, and creatinine 1.2. His liver transaminases remain elevated as noted. The latest thyroid study showed a T4 of 5.75 with a TSH of 1.08 and initial TSH of 0.21 indicative of so called acute sick euthyroid syndrome. PLAN: So, at this time, we will continue the same dose regimen with levothyroxine given at 88 mcg daily as ordered. We will titrate incremental as indicated to optimize metabolic control. We will follow and advise accordingly. Pari Miller MD
--- NOTE | 2017-03-15 | CP.PCM.PN ---
Subjective - Date & Time of Evaluation Date of Evaluation: 03/14/17 Time of Evaluation: 22:22 - Subjective Subjective: Surgery and GI notes appreciated Lipase elevated Afebrile Objective - Vital Signs/Intake and Output Vital Signs (last 24 hours): Temp Pulse Resp BP Pulse Ox 98.1 F 49 L 20 160/64 H 99 03/14/17 20:14 03/14/17 20:37 03/14/17 20:14 03/14/17 20:14 03/14/17 20:14 Intake and Output: 03/14/17 03/15/17 18:59 06:59 Intake Total 1530 Output Total 700 Balance 830 - Medications Medications: Current Medications Acetaminophen (Tylenol 325mg Tab) 650 mg PO Q4 PRN PRN Reason: Fever >100.4 F Last Admin: 03/14/17 23:20 Dose: 650 mg Artificial Tears (Artificial Tears) 2 drop OU QID PRN PRN Reason: Dry eyes Last Admin: 03/14/17 05:30 Dose: 2 drop Famotidine (Pepcid) 40 mg IVP DAILY [facility] Last Admin: 03/14/17 09:02 Dose: 40 mg Finasteride (Proscar) 5 mg PO DAILY [facility] Last Admin: 03/14/17 09:08 Dose: 5 mg Piperacillin Sod/Tazobactam (Sod 3.375 gm/ Sodium Chloride) 100 mls @ 100 mls/ hr IVPB Q6 [facility] Last Admin: 03/14/17 21:05 Dose: 100 mls/hr Gentamicin Sulfate/Sodium Chloride (Gentamicin 80mg/50ml Ns) 80 mg in 50 mls @ 50 mls/hr IVPB Q12 [facility] Last Admin: 03/14/17 09:04 Dose: 50 mls/hr Lactated Ringer's (Lactated Ringer's) 1,000 mls @ 100 mls/hr IV .Q10H [facility] Levothyroxine Sodium (Synthroid) 88 mcg PO DAILY@0630 [facility] Last Admin: 03/14/17 05:31 Dose: 88 mcg Ondansetron HCl (Zofran Inj) 4 mg IVP Q4 PRN PRN Reason: Nausea/Vomiting Prednisone (Prednisone Tab) 5 mg PO DAILY [facility] Last Admin: 03/14/17 09:08 Dose: 5 mg Tamsulosin HCl (Flomax) 0.8 mg PO DAILY [facility] Last Admin: 03/14/17 09:08 Dose: 0.8 mg - Labs Labs: 03/14/17 05:30 03/14/17 05:30 PT 11.6 Seconds (9.8-13.1) 03/13/17 05:55 INR 1.1 (0.9-1.2) 03/13/17 05:55 APTT 31.5 Seconds (25.6-37.1) 03/12/17 06:00 - Respiratory Exam Respiratory Exam: NORMAL BREATHING PATTERN - Cardiovascular Exam Cardiovascular Exam: REGULAR RHYTHM - GI/Abdominal Exam GI & Abdominal Exam: Normal Bowel Sounds Assessment and Plan - Assessment and Plan (Free Text) Assessment: S/P ERCP Stent CBD stone Cholelithiasis Ascending cholangitis E coli IV ABX ZOsyn and Genta IVF GI surgery ID Thyroid dx Endo Smoker Hx PVD Cardiology Pulmonary
[2017-03-15] MEDS: Piperacillin/Tazobact 3.375 GM in Sodium Chloride 0.9% 100 ML IVPB SCH ×4 (03:56→21:21)
[2017-03-15 06:44] LABS: HEMATOCRIT 29.8 % (35.0-51.0); MEAN CELL VOLUME 78.8 fl (80.0-94.0); MEAN CORPUSCULAR HEMOGLOBIN 25.4 pg (27.0-31.0); MEAN CORPUSCULAR HGB CONC 32.2 g/dL (33.0-37.0); RED CELL DISTRIBUTION WIDTH 16.7 % (11.5-14.5)
[2017-03-15] MEDS: Levothyroxine 88 MCG TAB PO SCH (06:48)
[2017-03-15 06:54] LABS: ALB/GLOB RATIO 1.2 (1.0-2.1); ALKALINE PHOSPHATASE 207 U/L (38-126); ALT/SGPT 100 U/L (21-72); AST/SGOT 51 U/L (17-59); BILIRUBIN,TOTAL 1.2 mg/dl (0.2-1.3); BLOOD UREA NITROGEN 7 mg/dl (9-20); CALCIUM 8.8 mg/dL (8.4-10.2); CARBON DIOXIDE 23 mmol/L (22-30); CHLORIDE 111 mmol/L (98-107); GFR AFRICAN-AMERICAN > 60; GLUCOSE,RANDOM 97 mg/dL (75-110); POTASSIUM 3.6 MMOL/L (3.6-5.0); SODIUM 141 mmol/l (132-148); TOTAL PROTEIN 5.6 G/DL (6.3-8.2)
--- NOTE | 2017-03-15 10:44 | CP.PCM.PN ---
Subjective - Date & Time of Evaluation Date of Evaluation: 03/15/17 Time of Evaluation: 06:00 - Subjective Subjective: General Surgery- Dr. Carter Pt S&E at bedside this AM. no acute events overnight. Tolerating diet. denies pain, N/V, F/C CP/SOB. Objective - Vital Signs/Intake and Output Vital Signs (last 24 hours): Temp Pulse Resp BP Pulse Ox 98.0 F 54 L 20 150/67 97 03/15/17 08:54 03/15/17 09:00 03/15/17 08:54 03/15/17 08:54 03/15/17 08:54 - Medications Medications: Current Medications Acetaminophen (Tylenol 325mg Tab) 650 mg PO Q4 PRN PRN Reason: Fever >100.4 F Last Admin: 03/14/17 23:20 Dose: 650 mg Artificial Tears (Artificial Tears) 2 drop OU QID PRN PRN Reason: Dry eyes Last Admin: 03/14/17 05:30 Dose: 2 drop Famotidine (Pepcid) 40 mg IVP DAILY [facility] Last Admin: 03/15/17 09:05 Dose: 40 mg Finasteride (Proscar) 5 mg PO DAILY [facility] Last Admin: 03/15/17 09:05 Dose: 5 mg Piperacillin Sod/Tazobactam (Sod 3.375 gm/ Sodium Chloride) 100 mls @ 100 mls/ hr IVPB Q6 [facility] Last Admin: 03/15/17 09:05 Dose: 100 mls/hr Gentamicin Sulfate/Sodium Chloride (Gentamicin 80mg/50ml Ns) 80 mg in 50 mls @ 50 mls/hr IVPB Q12 [facility] Last Admin: 03/14/17 09:04 Dose: 50 mls/hr Lactated Ringer's (Lactated Ringer's) 1,000 mls @ 100 mls/hr IV .Q10H [facility] Levothyroxine Sodium (Synthroid) 88 mcg PO DAILY@0630 [facility] Last Admin: 03/15/17 06:48 Dose: 88 mcg Ondansetron HCl (Zofran Inj) 4 mg IVP Q4 PRN PRN Reason: Nausea/Vomiting Prednisone (Prednisone Tab) 5 mg PO DAILY [facility] Last Admin: 03/15/17 09:05 Dose: 5 mg Tamsulosin HCl (Flomax) 0.8 mg PO DAILY [facility] Last Admin: 03/15/17 09:05 Dose: 0.8 mg - Labs Labs: 03/15/17 06:00 03/15/17 06:00 PT 11.6 Seconds (9.8-13.1) 03/13/17 05:55 INR 1.1 (0.9-1.2) 03/13/17 05:55 APTT 31.5 Seconds (25.6-37.1) 03/12/17 06:00 - Constitutional Appears: No Acute Distress - Eye Exam Additional comments: Eye patch present during examination - Respiratory Exam Respiratory Exam: NORMAL BREATHING PATTERN. absent: Accessory Muscle Use, Rales , Rhonchi - Cardiovascular Exam Cardiovascular Exam: +S1, +S2 - GI/Abdominal Exam GI & Abdominal Exam: Soft, Tenderness, Normal Bowel Sounds. absent: Distended, Firm, Guarding, Rigid, Hernia, Rebound Additional comments: minimal tenderness to palpation in RUQ - Neurological Exam Neurological Exam: Alert, Awake, Oriented x3 - Psychiatric Exam Psychiatric exam: Normal Affect - Skin Skin Exam: Normal Color, Warm Assessment and Plan - Assessment and Plan (Free Text) Assessment: 76M w/ Cholangitis and choledocolithiasis s/p ERCP and stent placement POD#2 Plan: - IVabx - Monitor CBC, CMP - GI recs - No acute surgical intervention at this time. Plan for cholecystectomy after cholangitis has resolved - further recs per Dr. Raul Bo PGY1
--- NOTE | 2017-03-15 11:21 | CP.PCM.PN ---
Subjective - Date & Time of Evaluation Date of Evaluation: 03/15/17 Time of Evaluation: 22:22 - Subjective Subjective: Doing well Day 5 ABX Objective - Vital Signs/Intake and Output Vital Signs (last 24 hours): Temp Pulse Resp BP Pulse Ox 98.0 F 54 L 20 150/67 97 03/15/17 08:54 03/15/17 09:00 03/15/17 08:54 03/15/17 08:54 03/15/17 08:54 - Medications Medications: Current Medications Acetaminophen (Tylenol 325mg Tab) 650 mg PO Q4 PRN PRN Reason: Fever >100.4 F Last Admin: 03/14/17 23:20 Dose: 650 mg Artificial Tears (Artificial Tears) 2 drop OU QID PRN PRN Reason: Dry eyes Last Admin: 03/14/17 05:30 Dose: 2 drop Famotidine (Pepcid) 40 mg IVP DAILY [facility] Last Admin: 03/15/17 09:05 Dose: 40 mg Finasteride (Proscar) 5 mg PO DAILY [facility] Last Admin: 03/15/17 09:05 Dose: 5 mg Piperacillin Sod/Tazobactam (Sod 3.375 gm/ Sodium Chloride) 100 mls @ 100 mls/ hr IVPB Q6 [facility] Last Admin: 03/15/17 09:05 Dose: 100 mls/hr Gentamicin Sulfate/Sodium Chloride (Gentamicin 80mg/50ml Ns) 80 mg in 50 mls @ 50 mls/hr IVPB Q12 [facility] Last Admin: 03/14/17 09:04 Dose: 50 mls/hr Lactated Ringer's (Lactated Ringer's) 1,000 mls @ 100 mls/hr IV .Q10H [facility] Levothyroxine Sodium (Synthroid) 88 mcg PO DAILY@0630 [facility] Last Admin: 03/15/17 06:48 Dose: 88 mcg Ondansetron HCl (Zofran Inj) 4 mg IVP Q4 PRN PRN Reason: Nausea/Vomiting Prednisone (Prednisone Tab) 5 mg PO DAILY [facility] Last Admin: 03/15/17 09:05 Dose: 5 mg Tamsulosin HCl (Flomax) 0.8 mg PO DAILY [facility] Last Admin: 03/15/17 09:05 Dose: 0.8 mg - Labs Labs: 03/15/17 06:00 03/15/17 06:00 PT 11.6 Seconds (9.8-13.1) 03/13/17 05:55 INR 1.1 (0.9-1.2) 03/13/17 05:55 APTT 31.5 Seconds (25.6-37.1) 03/12/17 06:00 - Respiratory Exam Respiratory Exam: NORMAL BREATHING PATTERN - Cardiovascular Exam Cardiovascular Exam: REGULAR RHYTHM - GI/Abdominal Exam GI & Abdominal Exam: Normal Bowel Sounds Assessment and Plan - Assessment and Plan (Free Text) Assessment: CBD stone S/P ERCP Stent Ascending cholangitis E coli Cholelithiasis IV ABX Zosyn and Genta GI surgery ID Thyroid dx Endo Smoker Hx PVD Cardiology Pulmonary Anemia etiol? w/u ordered
--- NOTE | 2017-03-15 12:56 | CP.PCM.PN ---
Subjective - Date & Time of Evaluation Date of Evaluation: 03/15/17 Time of Evaluation: 08:00 - Subjective Subjective: 76M w/ Cholangitis and choledocolithiasis s/p ERCP and stent placement POD#2 Blood c/s shows E Coli resistant to oral quinolones Objective - Vital Signs/Intake and Output Vital Signs (last 24 hours): Temp Pulse Resp BP Pulse Ox 98.0 F 56 L 20 126/58 L 99 03/15/17 12:05 03/15/17 12:05 03/15/17 12:05 03/15/17 12:05 03/15/17 12:05 - Medications Medications: Current Medications Acetaminophen (Tylenol 325mg Tab) 650 mg PO Q4 PRN PRN Reason: Fever >100.4 F Last Admin: 03/14/17 23:20 Dose: 650 mg Artificial Tears (Artificial Tears) 2 drop OU QID PRN PRN Reason: Dry eyes Last Admin: 03/14/17 05:30 Dose: 2 drop Famotidine (Pepcid) 40 mg IVP DAILY [facility] Last Admin: 03/15/17 09:05 Dose: 40 mg Finasteride (Proscar) 5 mg PO DAILY [facility] Last Admin: 03/15/17 09:05 Dose: 5 mg Piperacillin Sod/Tazobactam (Sod 3.375 gm/ Sodium Chloride) 100 mls @ 100 mls/ hr IVPB Q6 [facility] Last Admin: 03/15/17 09:05 Dose: 100 mls/hr Gentamicin Sulfate/Sodium Chloride (Gentamicin 80mg/50ml Ns) 80 mg in 50 mls @ 50 mls/hr IVPB Q12 [facility] Last Admin: 03/14/17 09:04 Dose: 50 mls/hr Lactated Ringer's (Lactated Ringer's) 1,000 mls @ 100 mls/hr IV .Q10H [facility] Levothyroxine Sodium (Synthroid) 88 mcg PO DAILY@0630 [facility] Last Admin: 03/15/17 06:48 Dose: 88 mcg Ondansetron HCl (Zofran Inj) 4 mg IVP Q4 PRN PRN Reason: Nausea/Vomiting Prednisone (Prednisone Tab) 5 mg PO DAILY [facility] Last Admin: 03/15/17 09:05 Dose: 5 mg Tamsulosin HCl (Flomax) 0.8 mg PO DAILY [facility] Last Admin: 03/15/17 09:05 Dose: 0.8 mg - Labs Labs: 03/15/17 06:00 03/15/17 06:00 PT 11.6 Seconds (9.8-13.1) 03/13/17 05:55 INR 1.1 (0.9-1.2) 03/13/17 05:55 APTT 31.5 Seconds (25.6-37.1) 03/12/17 06:00 - Constitutional Appears: Non-toxic, Cachectic, Chronically Ill - Head Exam Head Exam: NORMOCEPHALIC - Eye Exam Eye Exam: absent: Scleral icterus - ENT Exam ENT Exam: Mucous Membranes Dry, Normal External Ear Exam - Neck Exam Neck Exam: absent: Lymphadenopathy - Respiratory Exam Respiratory Exam: Decreased Breath Sounds, Clear to Ausculation Bilateral - Cardiovascular Exam Cardiovascular Exam: REGULAR RHYTHM, +S1, +S2 - GI/Abdominal Exam GI & Abdominal Exam: Distended, Soft. absent: Tenderness - Rectal Exam Rectal Exam: Deferred - Exam Exam: NORMAL INSPECTION - Extremities Exam Extremities Exam: absent: Calf Tenderness, Pedal Edema - Back Exam Back Exam: absent: CVA tenderness (L), CVA tenderness (R) - Neurological Exam Neurological Exam: Alert, Awake, Oriented x3 - Psychiatric Exam Psychiatric exam: Normal Mood - Skin Skin Exam: Dry Assessment and Plan - Assessment and Plan (Free Text) Plan: 76M w/ Cholangitis and choledocolithiasis s/p ERCP and stent placement POD#2 need min 14 days IV antibiotic rx
--- NOTE | 2017-03-15 14:57 | PN ---
DATE: END FOLLOWUP NOTE LOCATION: Room 407. SUBJECTIVE: This is a 76-year-old male with known history of hypothyroidism related to a previous thyroidectomy with underlying graves disease and is now being followed closely for metabolic management. He remains clinically and by chemically euthyroid at this time as noted. LABORATORY DATA: His latest chemistry shows BUN of 7, sodium 141, potassium 3.6, chloride 111, CO2 of 23, glucose 97 and creatinine 1.1. His liver transaminases remained elevated at this time with underlying cholelithiasis and choledocholithiasis and is being followed closely by GI and surgery as noted. He is scheduled for possible ERCP at [facility] as indicated. His latest thyroid study showed a T4 of 5.75 with the TSH of 1.08 and a free T4 of 1.11. PLAN: So, at this time, we will continue the same levothyroxine given us 88 mcg once daily in the morning as ordered. We will titrate incremental as indicated to optimize metabolic control. We will follow. Pari Miller MD
[2017-03-15] MEDS: Lactated Ringer's 1,000 ML IV SCH (16:23)
--- NOTE | 2017-03-15 19:58 | CP.PCM.PN ---
Subjective - Date & Time of Evaluation Date of Evaluation: 03/15/17 Time of Evaluation: 19:54 - Subjective Subjective: Clinically feels well. No pain or fever. Objective - Vital Signs/Intake and Output Vital Signs (last 24 hours): Temp Pulse Resp BP Pulse Ox 97.6 F 62 20 135/61 98 03/15/17 19:31 03/15/17 19:31 03/15/17 19:31 03/15/17 19:31 03/15/17 19:31 Intake and Output: 03/15/17 03/16/17 18:59 06:59 Intake Total 740 Balance 740 - Medications Medications: Current Medications Acetaminophen (Tylenol 325mg Tab) 650 mg PO Q4 PRN PRN Reason: Fever >100.4 F Last Admin: 03/14/17 23:20 Dose: 650 mg Artificial Tears (Artificial Tears) 2 drop OU QID PRN PRN Reason: Dry eyes Last Admin: 03/14/17 05:30 Dose: 2 drop Famotidine (Pepcid) 40 mg IVP DAILY [facility] Last Admin: 03/15/17 09:05 Dose: 40 mg Finasteride (Proscar) 5 mg PO DAILY [facility] Last Admin: 03/15/17 09:05 Dose: 5 mg Piperacillin Sod/Tazobactam (Sod 3.375 gm/ Sodium Chloride) 100 mls @ 100 mls/ hr IVPB Q6 [facility] Last Admin: 03/15/17 16:20 Dose: 100 mls/hr Lactated Ringer's (Lactated Ringer's) 1,000 mls @ 100 mls/hr IV .Q10H [facility] Last Admin: 03/15/17 16:23 Dose: 100 mls/hr Levothyroxine Sodium (Synthroid) 88 mcg PO DAILY@0630 [facility] Last Admin: 03/15/17 06:48 Dose: 88 mcg Ondansetron HCl (Zofran Inj) 4 mg IVP Q4 PRN PRN Reason: Nausea/Vomiting Prednisone (Prednisone Tab) 5 mg PO DAILY [facility] Last Admin: 03/15/17 09:05 Dose: 5 mg Tamsulosin HCl (Flomax) 0.8 mg PO DAILY [facility] Last Admin: 03/15/17 09:05 Dose: 0.8 mg - Labs Labs: 03/15/17 06:00 03/15/17 06:00 PT 11.6 Seconds (9.8-13.1) 03/13/17 05:55 INR 1.1 (0.9-1.2) 03/13/17 05:55 APTT 31.5 Seconds (25.6-37.1) 03/12/17 06:00 - Head Exam Head Exam: ATRAUMATIC - Eye Exam Eye Exam: Normal appearance - ENT Exam ENT Exam: Normal Exam - Neck Exam Neck Exam: Full ROM - Respiratory Exam Respiratory Exam: Clear to Ausculation Bilateral - Cardiovascular Exam Cardiovascular Exam: REGULAR RHYTHM, +S1, +S2 - GI/Abdominal Exam GI & Abdominal Exam: Soft. absent: Tenderness Assessment and Plan (1) Choledocholithiasis Assessment & Plan: For now clinically doing well. IV antibiotics for cholangitis as per ID. At the appropriate time, will need more definitive treatment of CBD by Dr. Palencia before stent gets clogged and cholangitis comes back . Gallbladder has multiple stones and being followed by surgery Status: Acute
[2017-03-16] MEDS: Lactated Ringer's 1,000 ML IV SCH ×3 (03:51→21:26)
[2017-03-16] MEDS: Piperacillin/Tazobact 3.375 GM in Sodium Chloride 0.9% 100 ML IVPB SCH ×4 (03:52→21:27)
[2017-03-16] MEDS: Levothyroxine 88 MCG TAB PO SCH (05:54)
[2017-03-16 05:56] LABS: HEMATOCRIT 34.1 % (35.0-51.0); MEAN CELL VOLUME 79.6 fl (80.0-94.0); MEAN CORPUSCULAR HEMOGLOBIN 25.2 pg (27.0-31.0); MEAN CORPUSCULAR HGB CONC 31.7 g/dL (33.0-37.0); RED CELL DISTRIBUTION WIDTH 16.5 % (11.5-14.5); WHITE BLOOD COUNT 7.4 K/uL (4.8-10.8)
[2017-03-16 06:32] LABS: ALB/GLOB RATIO 1.3 (1.0-2.1); ALKALINE PHOSPHATASE 273 U/L (38-126); ALT/SGPT 112 U/L (21-72); AST/SGOT 68 U/L (17-59); BILIRUBIN,TOTAL 1.2 mg/dl (0.2-1.3); BLOOD UREA NITROGEN 6 mg/dl (9-20); CALCIUM 9.3 mg/dL (8.4-10.2); CARBON DIOXIDE 23 mmol/L (22-30); CHLORIDE 109 mmol/L (98-107); GFR AFRICAN-AMERICAN > 60; GLUCOSE,RANDOM 94 mg/dL (75-110); POTASSIUM 3.6 MMOL/L (3.6-5.0); SODIUM 142 mmol/l (132-148); TOTAL PROTEIN 6.3 G/DL (6.3-8.2)
--- NOTE | 2017-03-16 07:25 | CP.PCM.PN ---
Subjective - Date & Time of Evaluation Date of Evaluation: 03/16/17 Time of Evaluation: 07:22 - Subjective Subjective: Surgery: Dr. Carter Patient reports feeling tired today. He denies pain, n/v. He reports wanting to go home. Objective - Vital Signs/Intake and Output Vital Signs (last 24 hours): Temp Pulse Resp BP Pulse Ox 97.9 F 55 L 18 144/73 96 03/16/17 04:52 03/16/17 04:52 03/16/17 04:52 03/16/17 04:52 03/16/17 04:52 - Medications Medications: Current Medications Acetaminophen (Tylenol 325mg Tab) 650 mg PO Q4 PRN PRN Reason: Fever >100.4 F Last Admin: 03/14/17 23:20 Dose: 650 mg Artificial Tears (Artificial Tears) 2 drop OU QID PRN PRN Reason: Dry eyes Last Admin: 03/14/17 05:30 Dose: 2 drop Famotidine (Pepcid) 40 mg IVP DAILY [facility] Last Admin: 03/15/17 09:05 Dose: 40 mg Finasteride (Proscar) 5 mg PO DAILY [facility] Last Admin: 03/15/17 09:05 Dose: 5 mg Piperacillin Sod/Tazobactam (Sod 3.375 gm/ Sodium Chloride) 100 mls @ 100 mls/ hr IVPB Q6 [facility] Last Admin: 03/16/17 03:52 Dose: 100 mls/hr Lactated Ringer's (Lactated Ringer's) 1,000 mls @ 100 mls/hr IV .Q10H [facility] Last Admin: 03/16/17 03:51 Dose: 100 mls/hr Levothyroxine Sodium (Synthroid) 88 mcg PO DAILY@0630 [facility] Last Admin: 03/16/17 05:54 Dose: 88 mcg Ondansetron HCl (Zofran Inj) 4 mg IVP Q4 PRN PRN Reason: Nausea/Vomiting Prednisone (Prednisone Tab) 5 mg PO DAILY [facility] Last Admin: 03/15/17 09:05 Dose: 5 mg Tamsulosin HCl (Flomax) 0.8 mg PO DAILY [facility] Last Admin: 03/15/17 09:05 Dose: 0.8 mg - Labs Labs: 03/16/17 05:30 03/16/17 05:30 PT 11.6 Seconds (9.8-13.1) 03/13/17 05:55 INR 1.1 (0.9-1.2) 03/13/17 05:55 APTT 31.5 Seconds (25.6-37.1) 03/12/17 06:00 - Constitutional Appears: Non-toxic, No Acute Distress - Head Exam Head Exam: ATRAUMATIC, NORMOCEPHALIC - Eye Exam Eye Exam: EOMI, Normal appearance - ENT Exam ENT Exam: Mucous Membranes Moist - Respiratory Exam Respiratory Exam: NORMAL BREATHING PATTERN. absent: Respiratory Distress - Cardiovascular Exam Cardiovascular Exam: REGULAR RHYTHM. absent: Tachycardia - GI/Abdominal Exam GI & Abdominal Exam: Soft. absent: Distended, Guarding, Rigid, Tenderness, Rebound - Neurological Exam Neurological Exam: Alert, Awake - Psychiatric Exam Psychiatric exam: Normal Affect - Skin Skin Exam: Dry, Warm Assessment and Plan - Assessment and Plan (Free Text) Assessment: 76 y/o male w/ cholangitis s/p ERCP w/ PD and CBD stenting Plan: -clinically patient improved, recommend cholecystectomy elective vs this admission, currently TBD -f/u am labs -cont diet -further GI recs -further recs per Dr. Carter [facility] [place] PGY3
--- NOTE | 2017-03-16 08:39 | PN ---
DATE: ENDO FOLLOWUP NOTE LOCATION: Room 407. This is a 76-year-old male presenting here with abdominal pain and now undergoing GI workup at this time and is also being followed closely for metabolic management. He also has known history of Graves disease and received radioactive ablation with subsequent total thyroidectomy and has since then improved clinically and metabolically on the levothyroxine replacement therapy as given on the outpatient. He has remained clinically and biochemically euthyroid at this time as noted. 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 His latest chemistry showed a BUN of 10, sodium 136, potassium 3.5, chloride 108, CO2 is 21, glucose 99 and creatinine 1.0. His thyroid studies showed a T4 of 5.75 with TSH of 1.08. So at this time we will continue the levothyroxine given as 88 mcg once daily as ordered. We will titrate incremental as indicated to optimize metabolic control. We will follow and advise accordingly. Pari Miller MD
--- NOTE | 2017-03-16 10:53 | PQF GENQUE ---
Dr. Vogt, Consultants documented the following information with no mention of this diagnosis in your documentation. Please indicate in your next progress note your agreement with consultants or provide clarification that this diagnosis is not a current condition. 2(two) queries as follows: (1)Diagnosis: Sepsis Documented by: ER MD, ID, Cardiology, GI Location : Consults (2) If in agreement: Please document suspected or confirmed causative organism OR: Disagree OR: Unable to determine OR: Other explanation of clinical finding 03/11 ID consult: IV ANTIBIOTICS STARTED EMPIRICALLY FOR BILIARY SEPSIS / ASCENDING CHOLANGITIS 03/12: GI consult: Pt was initially worked up for sepsis likely source was GI. MRCP revealed cholelithiasis and choledocolithiasis----blood cultures reveal heavy gram neg growth, likely GI source 03/12 Endocrinology consult: admitted with right-sided abdominal pain and concomitant fever, chills and leucocytosis 03/13 Cardiology consult : admitted with Cholangitis, s/p Bilroth 2, PUD, Gasric Perforation, Gram negative sepsis for ERCP today Assessment: Would not delay surgical procedure from cardiology standpoint if indicated due to ongoing sepsis and complicated clinical course 03/14 GI note; presents with acute cholangitis due to choledocholithiasis. 1. Acute cholangitis 2. Choledocholithiasis 3. Cholelithiasis Plan: -s/p ERCP with precut sphincterotomy and CBD stent placed with good biliary drainage -continue antibiotics for 2 weeks 03/15 Attending progress note: CBD stone S/P ERCP Stent Ascending cholangitis E coli WBC: 19.0->10.2 left shift Temperature:99->101.3->100.3----102.6-.102.6 and 03/12: temp max: 102.2 This form is a permanent part of the medical record Clarification of your documentation is requested to better reflect the severity of illness and intensity of treatment of your patient. Indicators present [] Specify: [] [] Specify: [] [] Specify: [] [] Specify: [] Location in the medical record that reflects the above clinical findings: [] Treatment Provided: [] PHYSICIAN'S RESPONSE Based on your medical judgment of the clinical indicators outlined above please clarify the following: [] Practitioner response [] If unable to determine, please check the box, sign and date. Present On Admission (POA) Indicator: [] Present at the time of admission [] Not present at the time of admission [] Clinically Undetermined In responding to this query, please exercise your independent professional judgment. The fact that a question is asked does not imply that any particular answer is desired or expected. Thank you for your clarification on this documentation. If you have any questions please call. * Thank you, Torie Hedrick RN BSN ext. [phone]: Cathie GIBSON
--- NOTE | 2017-03-16 10:54 | CP.PCM.PN ---
Subjective - Date & Time of Evaluation Date of Evaluation: 03/16/17 Time of Evaluation: 08:00 - Subjective Subjective: 76 y/o male w/ cholangitis s/p ERCP w/ PD and CBD stenting On IV antibiotics for E Coli bacteremia- resistant to Cipro prognosis remains guarded- LFT's higher today although no longer septic Objective - Vital Signs/Intake and Output Vital Signs (last 24 hours): Temp Pulse Resp BP Pulse Ox 97.6 F 61 18 110/54 L 96 03/16/17 08:00 03/16/17 10:00 03/16/17 08:00 03/16/17 08:00 03/16/17 08:00 - Medications Medications: Current Medications Acetaminophen (Tylenol 325mg Tab) 650 mg PO Q4 PRN PRN Reason: Fever >100.4 F Last Admin: 03/14/17 23:20 Dose: 650 mg Artificial Tears (Artificial Tears) 2 drop OU QID PRN PRN Reason: Dry eyes Last Admin: 03/14/17 05:30 Dose: 2 drop Famotidine (Pepcid) 40 mg PO DAILY [facility] Finasteride (Proscar) 5 mg PO DAILY [facility] Last Admin: 03/16/17 09:42 Dose: 5 mg Piperacillin Sod/Tazobactam (Sod 3.375 gm/ Sodium Chloride) 100 mls @ 100 mls/ hr IVPB Q6 [facility] Last Admin: 03/16/17 09:58 Dose: 100 mls/hr Lactated Ringer's (Lactated Ringer's) 1,000 mls @ 100 mls/hr IV .Q10H [facility] Last Admin: 03/16/17 03:51 Dose: 100 mls/hr Levothyroxine Sodium (Synthroid) 88 mcg PO DAILY@0630 [facility] Last Admin: 03/16/17 05:54 Dose: 88 mcg Ondansetron HCl (Zofran Inj) 4 mg IVP Q4 PRN PRN Reason: Nausea/Vomiting Prednisone (Prednisone Tab) 5 mg PO DAILY [facility] Last Admin: 03/16/17 09:42 Dose: 5 mg Tamsulosin HCl (Flomax) 0.8 mg PO DAILY [facility] Last Admin: 03/16/17 09:41 Dose: 0.8 mg - Labs Labs: 03/16/17 05:30 03/16/17 05:30 PT 11.6 Seconds (9.8-13.1) 03/13/17 05:55 INR 1.1 (0.9-1.2) 03/13/17 05:55 APTT 31.5 Seconds (25.6-37.1) 03/12/17 06:00 - Constitutional Appears: Non-toxic, Cachectic, Chronically Ill - Head Exam Head Exam: ATRAUMATIC, NORMAL INSPECTION, NORMOCEPHALIC - Eye Exam Eye Exam: PERRL. absent: Scleral icterus - ENT Exam ENT Exam: Mucous Membranes Dry, Normal External Ear Exam - Neck Exam Neck Exam: absent: Lymphadenopathy - Respiratory Exam Respiratory Exam: Decreased Breath Sounds, Clear to Ausculation Bilateral - Cardiovascular Exam Cardiovascular Exam: REGULAR RHYTHM, +S1, +S2 - GI/Abdominal Exam GI & Abdominal Exam: Distended, Soft. absent: Tenderness - Rectal Exam Rectal Exam: Deferred - Exam Exam: NORMAL INSPECTION - Extremities Exam Extremities Exam: absent: Pedal Edema - Back Exam Back Exam: absent: CVA tenderness (L), CVA tenderness (R) - Neurological Exam Neurological Exam: Alert, Awake, Oriented x3 - Psychiatric Exam Psychiatric exam: Normal Mood Assessment and Plan (1) Bacteremia due to Escherichia coli Status: Acute (2) Choledocholithiasis Status: Acute (3) Sepsis Status: Acute - Assessment and Plan (Free Text) Assessment: 76 y/o male w/ cholangitis s/p ERCP w/ PD and CBD stenting cont iv antibiotics min 14 days consider cholecystectomy
--- NOTE | 2017-03-16 11:18 | CP.PCM.PN ---
Subjective - Date & Time of Evaluation Date of Evaluation: 03/16/17 Time of Evaluation: 11:15 - Subjective Subjective: no c/o cp, sob, or dizziness. Objective - Vital Signs/Intake and Output Vital Signs (last 24 hours): Temp Pulse Resp BP Pulse Ox 97.6 F 61 18 110/54 L 96 03/16/17 08:00 03/16/17 10:00 03/16/17 08:00 03/16/17 08:00 03/16/17 08:00 - Medications Medications: Current Medications Acetaminophen (Tylenol 325mg Tab) 650 mg PO Q4 PRN PRN Reason: Fever >100.4 F Last Admin: 03/14/17 23:20 Dose: 650 mg Artificial Tears (Artificial Tears) 2 drop OU QID PRN PRN Reason: Dry eyes Last Admin: 03/14/17 05:30 Dose: 2 drop Famotidine (Pepcid) 40 mg PO DAILY [facility] Finasteride (Proscar) 5 mg PO DAILY [facility] Last Admin: 03/16/17 09:42 Dose: 5 mg Piperacillin Sod/Tazobactam (Sod 3.375 gm/ Sodium Chloride) 100 mls @ 100 mls/ hr IVPB Q6 [facility] Last Admin: 03/16/17 09:58 Dose: 100 mls/hr Lactated Ringer's (Lactated Ringer's) 1,000 mls @ 100 mls/hr IV .Q10H [facility] Last Admin: 03/16/17 03:51 Dose: 100 mls/hr Levothyroxine Sodium (Synthroid) 88 mcg PO DAILY@0630 [facility] Last Admin: 03/16/17 05:54 Dose: 88 mcg Ondansetron HCl (Zofran Inj) 4 mg IVP Q4 PRN PRN Reason: Nausea/Vomiting Prednisone (Prednisone Tab) 5 mg PO DAILY [facility] Last Admin: 03/16/17 09:42 Dose: 5 mg Tamsulosin HCl (Flomax) 0.8 mg PO DAILY [facility] Last Admin: 03/16/17 09:41 Dose: 0.8 mg - Labs Labs: 03/16/17 05:30 03/16/17 05:30 PT 11.6 Seconds (9.8-13.1) 03/13/17 05:55 INR 1.1 (0.9-1.2) 03/13/17 05:55 APTT 31.5 Seconds (25.6-37.1) 03/12/17 06:00 - Respiratory Exam Respiratory Exam: Clear to Ausculation Bilateral - Cardiovascular Exam Cardiovascular Exam: REGULAR RHYTHM - GI/Abdominal Exam GI & Abdominal Exam: Normal Bowel Sounds - Extremities Exam Extremities Exam: Normal Inspection Assessment and Plan - Assessment and Plan (Free Text) Assessment: Stable cardiac status. Normal Sinus Rhythm currently at rest. Periods of sinus bradycardia most marked during sleep. No current indication for treatment.
--- NOTE | 2017-03-16 13:48 | CP.PCM.CON ---
History of Present Illness - History of Present Illness History of Present Illness: psychiatry consult ordered by dr. call reason: depression cc: "i think i've been depressed most of my life" hpi: 76 yo male living in [place]. no history of treatment for depression. states he feels depressed when he is home "until i go to the track and then i feel ok." he describes some sadness, guilt, decrease in energy. he denies change in sleep. he reports some passive suicidal thoughts but states he would never take his own life. he states he has to take care of his 's dog, which keeps him going. he reports his children are supportive. he reports he "had a tough life" grew up in [employer] [place] and his mother "had a mental illness and when i was 14." states his father was an alcoholic and pt was always called to come pick him up in skilled nursing or off the street. pt has been thinking about his past a lot. has tried to see a psychiatrist, but is told the wait it until april or may. he has never taking psychiatric medications. 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 has 2 adult children. 4 years ago. substance use: smokes 1ppd cigarettes. history of alcohol use. PMH: Grave's disease, COPD, PUD PSH: ex lap Chavo patch for duodenal perforation followed by repeat ex lap w/ Billroth I vs Billroth II configuration for PUD, thyroidectomy, urology procedures for kidney stones mse: alert, oriented x 3. memory intact. well groomed. good eye contact. mood is depressed. affect somewhat constricted. speech is appropriate rate/tone and volume. pt denies si/hi. denies a/v hallucinations. fair i/j. assessment: major depression, recurrent moderate recommendation: can refer to out patient therapy at the [facility] pt is currently refusing medications, but could benefit from low dose of an ssri such as lexapro 5mg daily Past Patient History - Past Medical History & Family History Past Medical History?: Yes - Past Social History Smoking Status: Heavy Smoker > 10 Cigarettes Daily - CARDIAC Hx Cardiac Disorders: No Hx Hypertension: No - PULMONARY Hx Respiratory Disorders: No Hx Tuberculosis: No - NEUROLOGICAL Hx Neurological Disorder: No Hx Seizures: No - HEENT Hx HEENT Problems: No - RENAL Hx Chronic Kidney Disease: No - ENDOCRINE/METABOLIC Hx Endocrine Disorders: Yes - HEMATOLOGICAL/ONCOLOGICAL Hx Human Immunodeficiency Virus (HIV): No - INTEGUMENTARY Hx Dermatological Problems: No - MUSCULOSKELETAL/RHEUMATOLOGICAL Hx Musculoskeletal Disorders: No - GASTROINTESTINAL Hx Gastrointestinal Disorders: No - GENITOURINARY/GYNECOLOGICAL Hx Genitourinary Disorders: No Hx Sexually Transmitted Disorders: No - PSYCHIATRIC Hx Substance Use: No - SURGICAL HISTORY Hx Surgeries: Yes Other/Comment: CATARACT. - ANESTHESIA Hx Anesthesia: Yes Hx Anesthesia Reactions: No Meds Allergies/Adverse Reactions: Allergies Allergy/AdvReac Type Severity Reaction Status Date / Time No Known Allergies Allergy Verified 04/27/15 15:48 - Medications Medications: Current Medications Acetaminophen (Tylenol 325mg Tab) 650 mg PO Q4 PRN PRN Reason: Fever >100.4 F Last Admin: 03/14/17 23:20 Dose: 650 mg Artificial Tears (Artificial Tears) 2 drop OU QID PRN PRN Reason: Dry eyes Last Admin: 03/14/17 05:30 Dose: 2 drop Famotidine (Pepcid) 40 mg PO DAILY [facility] Finasteride (Proscar) 5 mg PO DAILY [facility] Last Admin: 03/16/17 09:42 Dose: 5 mg Piperacillin Sod/Tazobactam (Sod 3.375 gm/ Sodium Chloride) 100 mls @ 100 mls/ hr IVPB Q6 [facility] Last Admin: 03/16/17 09:58 Dose: 100 mls/hr Lactated Ringer's (Lactated Ringer's) 1,000 mls @ 100 mls/hr IV .Q10H [facility] Last Admin: 03/16/17 03:51 Dose: 100 mls/hr Levothyroxine Sodium (Synthroid) 88 mcg PO DAILY@0630 [facility] Last Admin: 03/16/17 05:54 Dose: 88 mcg Ondansetron HCl (Zofran Inj) 4 mg IVP Q4 PRN PRN Reason: Nausea/Vomiting Prednisone (Prednisone Tab) 5 mg PO DAILY [facility] Last Admin: 03/16/17 09:42 Dose: 5 mg Tamsulosin HCl (Flomax) 0.8 mg PO DAILY [facility] Last Admin: 03/16/17 09:41 Dose: 0.8 mg Results - Vital Signs Recent Vital Signs: Last Vital Signs Temp 98.3 F 03/16/17 12:00 Pulse 58 L 03/16/17 12:00 Resp 18 03/16/17 12:00 BP 129/66 03/16/17 12:00 Pulse Ox 98 03/16/17 12:00 - Labs Result Diagrams: 03/16/17 05:30 03/16/17 05:30 Labs: Laboratory Results - last 24 hr 03/15/17 03/16/17 03/16/17 06:00 05:30 05:30 WBC 7.4 RBC 4.29 L Hgb 10.8 L Hct 34.1 L MCV 79.6 L MCH 25.2 L MCHC 31.7 L RDW 16.5 H Plt Count 213 Sodium 142 Potassium 3.6 Chloride 109 H Carbon Dioxide 23 Anion Gap 14 BUN 6 L Creatinine 1.1 Est GFR ( Amer) > 60 Est GFR (Non-Af Amer) > 60 Random Glucose 94 Calcium 9.3 Total Bilirubin 1.2 AST 68 H D ALT 112 H Alkaline Phosphatase 273 H D Total Protein 6.3 Albumin 3.5 Globulin 2.7 Albumin/Globulin Ratio 1.3 Gentamicin Trough < 0.6
--- NOTE | 2017-03-16 13:52 | CP.PCM.PCO ---
Assessment & Plan - Assessment and Plan (Free Text) Assessment: 76yr old M with Acute cholangitis s/p ERCP w/ PD and CBD stenting, E-coli sepsis Pt. doing well, denies sob, cp, abd pain, fevers, n/v/d Pt. will require 2 weeks of IV Abx Rocephin 2 gm daily as per - Cole pt. to go to TCU/[facility] for IV abx, however patient wishes to be d/c on Home IV once medically cleared pt. for insertion of PICC in am f/u cbc, cmp in am Above discussed with
--- NOTE | 2017-03-16 16:12 | PN ---
LOCATION: Room 407. SUBJECTIVE: This is a 76-year-old male with known history of hypothyroidism, currently admitted for diffuse abdominal pain and underlying cholelithiasis and choledocholithiasis. Currently receiving IV antibiotic management and close observation by GI and surgery as noted thereof. LABORATORY DATA: His latest chemistry showed a BUN of 6, sodium 142, potassium 3.6, chloride 109, CO2 of 23, glucose 94 and creatinine 1.1. His latest thyroid studies showed a T4 of 5.75 with the TSH of 1.08 and a free T4 of 1.11. PLAN: So, at this time, we will continue the same levothyroxine dose regimen of 88 mcg once daily as ordered. We will titrate incremental as indicated to optimize metabolic control. We will follow and advise accordingly. Pari Miller MD
--- NOTE | 2017-03-16 16:50 | CP.PCM.PN ---
Subjective - Date & Time of Evaluation Date of Evaluation: 03/16/17 Time of Evaluation: 22:22 - Subjective Subjective: Above noted LFT's increased assymptomatic Objective - Vital Signs/Intake and Output Vital Signs (last 24 hours): Temp Pulse Resp BP Pulse Ox 98.1 F 94 H 20 126/70 100 03/16/17 15:26 03/16/17 15:26 03/16/17 15:26 03/16/17 15:26 03/16/17 15:26 - Medications Medications: Current Medications Acetaminophen (Tylenol 325mg Tab) 650 mg PO Q4 PRN PRN Reason: Fever >100.4 F Last Admin: 03/14/17 23:20 Dose: 650 mg Artificial Tears (Artificial Tears) 2 drop OU QID PRN PRN Reason: Dry eyes Last Admin: 03/14/17 05:30 Dose: 2 drop Famotidine (Pepcid) 40 mg PO DAILY [facility] Finasteride (Proscar) 5 mg PO DAILY [facility] Last Admin: 03/16/17 09:42 Dose: 5 mg Piperacillin Sod/Tazobactam (Sod 3.375 gm/ Sodium Chloride) 100 mls @ 100 mls/ hr IVPB Q6 [facility] Last Admin: 03/16/17 16:30 Dose: 100 mls/hr Lactated Ringer's (Lactated Ringer's) 1,000 mls @ 100 mls/hr IV .Q10H [facility] Last Admin: 03/16/17 03:51 Dose: 100 mls/hr Levothyroxine Sodium (Synthroid) 88 mcg PO DAILY@0630 [facility] Last Admin: 03/16/17 05:54 Dose: 88 mcg Ondansetron HCl (Zofran Inj) 4 mg IVP Q4 PRN PRN Reason: Nausea/Vomiting Prednisone (Prednisone Tab) 5 mg PO DAILY [facility] Last Admin: 03/16/17 09:42 Dose: 5 mg Tamsulosin HCl (Flomax) 0.8 mg PO DAILY [facility] Last Admin: 03/16/17 09:41 Dose: 0.8 mg - Labs Labs: 03/16/17 05:30 03/16/17 05:30 PT 11.6 Seconds (9.8-13.1) 03/13/17 05:55 INR 1.1 (0.9-1.2) 03/13/17 05:55 APTT 31.5 Seconds (25.6-37.1) 03/12/17 06:00 - Respiratory Exam Respiratory Exam: NORMAL BREATHING PATTERN - Cardiovascular Exam Cardiovascular Exam: REGULAR RHYTHM - GI/Abdominal Exam GI & Abdominal Exam: Normal Bowel Sounds Assessment and Plan - Assessment and Plan (Free Text) Assessment: CBD stone S/P ERCP Stent Ascending cholangitis E coli Cholelithiasis IV ABX Zosyn and Genta GI surgery ID outpt ABX PICC Thyroid dx Endo Smoker Hx PVD Cardiology Pulmonary Anemia etiol? w/u ordered Major Depression t/c Lexapro 5mg
[2017-03-16 18:05] LABS: MEAN CELL VOLUME 79.8 fl (80.0-94.0); MEAN CORPUSCULAR HEMOGLOBIN 25.4 pg (27.0-31.0); MEAN CORPUSCULAR HGB CONC 31.9 g/dL (33.0-37.0); RED CELL DISTRIBUTION WIDTH 16.9 % (11.5-14.5); WHITE BLOOD COUNT 7.3 K/uL (4.8-10.8)
[2017-03-16 18:16] LABS: IRON 50 ug/dL (49-181)
[2017-03-16 18:18] LABS: ALB/GLOB RATIO 1.3 (1.0-2.1); ALKALINE PHOSPHATASE 263 U/L (38-126); ALT/SGPT 109 U/L (21-72); AST/SGOT 59 U/L (17-59); BILIRUBIN,TOTAL 0.9 mg/dl (0.2-1.3); BLOOD UREA NITROGEN 7 mg/dl (9-20); CALCIUM 9.1 mg/dL (8.4-10.2); CARBON DIOXIDE 22 mmol/L (22-30); CHLORIDE 108 mmol/L (98-107); GFR AFRICAN-AMERICAN > 60; GLUCOSE,RANDOM 98 mg/dL (75-110); POTASSIUM 3.8 MMOL/L (3.6-5.0); SODIUM 141 mmol/l (132-148); TOTAL PROTEIN 6.6 G/DL (6.3-8.2)
[2017-03-17] MEDS: Piperacillin/Tazobact 3.375 GM in Sodium Chloride 0.9% 100 ML IVPB SCH ×3 (03:08→17:17)
[2017-03-17] MEDS: Lactated Ringer's 1,000 ML IV SCH (06:48)
[2017-03-17] MEDS: Levothyroxine 88 MCG TAB PO SCH (06:48)
[2017-03-17] MEDS ORDERED: cefTRIAXone 2 GM in Sodium Chloride 0.9% 100 ML IVPB SCH (10:30)
--- NOTE | 2017-03-17 10:58 | CP.PCM.PN ---
Subjective - Date & Time of Evaluation Date of Evaluation: 03/17/17 Time of Evaluation: 09:00 - Subjective Subjective: events noted iv rx in progress Objective - Vital Signs/Intake and Output Vital Signs (last 24 hours): Temp Pulse Resp BP Pulse Ox 98.4 F 104 H 14 148/80 100 03/17/17 08:17 03/17/17 08:17 03/17/17 08:17 03/17/17 08:17 03/17/17 08:17 Intake and Output: 03/17/17 03/17/17 06:59 18:59 Intake Total 1320 Balance 1320 - Medications Medications: Current Medications Acetaminophen (Tylenol 325mg Tab) 650 mg PO Q4 PRN PRN Reason: Fever >100.4 F Last Admin: 03/14/17 23:20 Dose: 650 mg Artificial Tears (Artificial Tears) 2 drop OU QID PRN PRN Reason: Dry eyes Last Admin: 03/14/17 05:30 Dose: 2 drop Escitalopram Oxalate (Lexapro) 5 mg PO [facility] Famotidine (Pepcid) 40 mg PO DAILY [facility] Last Admin: 03/17/17 09:46 Dose: 40 mg Finasteride (Proscar) 5 mg PO DAILY [facility] Last Admin: 03/17/17 09:46 Dose: 5 mg Piperacillin Sod/Tazobactam (Sod 3.375 gm/ Sodium Chloride) 100 mls @ 100 mls/ hr IVPB Q6 [facility] Last Admin: 03/17/17 03:08 Dose: 100 mls/hr Ceftriaxone Sodium 2 gm/ (Sodium Chloride) 100 mls @ 100 mls/hr IVPB DAILY [facility] Last Admin: 03/17/17 10:24 Dose: 100 mls/hr Levothyroxine Sodium (Synthroid) 88 mcg PO DAILY@0630 [facility] Last Admin: 03/17/17 06:48 Dose: 88 mcg Ondansetron HCl (Zofran Inj) 4 mg IVP Q4 PRN PRN Reason: Nausea/Vomiting Prednisone (Prednisone Tab) 5 mg PO DAILY [facility] Last Admin: 03/17/17 09:46 Dose: 5 mg Tamsulosin HCl (Flomax) 0.8 mg PO DAILY [facility] Last Admin: 03/17/17 09:44 Dose: 0.8 mg - Labs Labs: 03/16/17 18:40 03/16/17 17:00 PT 11.6 Seconds (9.8-13.1) 03/13/17 05:55 INR 1.1 (0.9-1.2) 03/13/17 05:55 APTT 31.5 Seconds (25.6-37.1) 03/12/17 06:00 - Constitutional Appears: Non-toxic, Chronically Ill - Head Exam Head Exam: NORMOCEPHALIC - Eye Exam Eye Exam: PERRL - ENT Exam ENT Exam: Mucous Membranes Dry - Neck Exam Neck Exam: absent: Lymphadenopathy - Respiratory Exam Respiratory Exam: Decreased Breath Sounds - Cardiovascular Exam Cardiovascular Exam: REGULAR RHYTHM - GI/Abdominal Exam GI & Abdominal Exam: Distended, Soft - Rectal Exam Rectal Exam: Deferred - Exam Exam: NORMAL INSPECTION - Extremities Exam Extremities Exam: absent: Pedal Edema - Back Exam Back Exam: absent: CVA tenderness (L), CVA tenderness (R) - Neurological Exam Neurological Exam: Alert, Awake, Oriented x3 - Psychiatric Exam Psychiatric exam: Normal Mood - Skin Skin Exam: Dry Assessment and Plan (1) Bacteremia due to Escherichia coli Status: Acute (2) Choledocholithiasis Status: Acute (3) Sepsis Status: Acute - Assessment and Plan (Free Text) Assessment: cont iv antibiotics for 2 weeks follow up with GI / surgery
[2017-03-17 12:26] VITALS: RESP 18; O2SAT 99
[2017-03-17 13:05] LABS: FOLATE > 20.0 ng/mL
[2017-03-17 14:59] LABS: TSI 367 % baseline (<140)
[2017-03-17] MEDS ORDERED: Lidocaine 1% Inj (20ml) ONE (15:52)
--- NOTE | 2017-03-17 16:14 | PCM.SURG1 ---
Surgeon's Initial Post Op Note - Surgeon's Notes Surgeon: Otoniel Computer Numer[employer] Operator: None Type of Anesthesia: Local Pre-Operative Diagnosis: IV Access Operative Findings: Patent right basilic vein Post-Operative Diagnosis: IV Access Operation Performed: Right basilice elvin 4F SL 34cm PICC with the tip at the RA/ SVC junction. Specimen/Specimens Removed: None Estimated Blood Loss: EBL {In ML}: 1 Date of Surgery/Procedure: 03/17/17 Time of Surgery/Procedure: 16:10
[2017-03-17 16:22] VITALS: BP 160/72; PULSE 61; TEMP 98.4
--- NOTE | 2017-03-17 20:51 | CP.PCM.PN ---
Subjective - Date & Time of Evaluation Date of Evaluation: 03/17/17 Time of Evaluation: 22:22 - Subjective Subjective: Above noted D/W GI in detail Objective - Vital Signs/Intake and Output Vital Signs (last 24 hours): Temp Pulse Resp BP Pulse Ox 98.4 F 61 18 160/72 H 99 03/17/17 16:21 03/17/17 16:21 03/17/17 16:21 03/17/17 16:21 03/17/17 16:21 Intake and Output: 03/17/17 03/18/17 18:59 06:59 Intake Total 1260 Balance 1260 - Labs Labs: 03/16/17 18:40 03/16/17 17:00 PT 11.6 Seconds (9.8-13.1) 03/13/17 05:55 INR 1.1 (0.9-1.2) 03/13/17 05:55 APTT 31.5 Seconds (25.6-37.1) 03/12/17 06:00 - Respiratory Exam Respiratory Exam: NORMAL BREATHING PATTERN - Cardiovascular Exam Cardiovascular Exam: REGULAR RHYTHM - GI/Abdominal Exam GI & Abdominal Exam: Normal Bowel Sounds Assessment and Plan - Assessment and Plan (Free Text) Assessment: CBD stone S/P ERCP Stent Ascending cholangitis E coli bacteremia Cholelithiasis outpt ABX PICC f/u GI f/u surgery Thyroid dx Endo Smoker Hx PVD Cardiology Pulmonary Anemia etiol? w/u ordered Major Depression t/c Lexapro 5mg
--- NOTE | 2017-03-18 08:27 | PN ---
ENDOCRINOLOGY FOLLOWUP NOTE ROOM: 407 This is a 76-year-old male with recent admission for near syncope, generalized body weakness, and supervening diffuse abdominal pain cholelithiasis and choledocholithiasis with elevated liver transaminases at the present time. He is being followed closely by GI and Surgery for . He remains clinically euthyroid . His thyroid studies shows a T4 of 5.7 and TSH of 1.08. Free T4 1.11. The chemistry panel showed BUN of 7, sodium 140, potassium 3.8, chloride 108, CO2 of 24, glucose 98, and creatinine 0.9. Alkaline phosphatase is 263 as noted. So at this time, we will continue the levothyroxine given at 88 mcg once daily as ordered. We will titrate incrementally as indicated to optimize metabolic control. We will obtain serial chemistries and supplement accordingly as stated. We will follow with you. Pari Miller MD
--- NOTE | 2017-03-24 19:15 | VASCULAR ---
Procedure: Ultrasound and fluoroscopically placed Right upper extremity PICC. Clinical indication: Long-term IV antibiotics. Technique: The relative risks and indications of the procedure were explained to the patient and written informed consent obtained. The patient was placed supine on the angiographic table and the right arm prepped and draped in the usual sterile fashion. A tourniquet was applied to the right axilla. 1% lidocaine was used to anesthetize the skin and soft tissues at the puncture site above the elbow. The right basilic vein was punctured under direct ultrasound guidance with a micropuncture set. A permanent image was stored. A 0.018 guidewire was advanced centrally and used to measure the length to the SVC/RA junction. A 4 Filipino single-lumen PICC, size 34 cm, was advanced to the SVC/RA junction under fluoroscopic guidance. The catheter was flushed and secured. The patient tolerated the procedure well. Postprocedure chest image was obtained to ensure location of the catheter tip at the SVC right atrial junction. Impression: Ultrasound and fluoroscopically placed right upper extremity PICC. A 4 Filipino single-lumen PICC, size 34 cm was advanced to the SVC/RA junction. PICC ready for use.
== END 2017-03-17 19:10 | disposition home or self-care (01) | DRG 872 ==
LOC: H.ER 09:24 → H.ERHOLD 14:19 → H.TEL 20:48
PROVIDERS: ADMIT Family Medicine Geriatric Medicine; ATTEND Family Medicine Geriatric Medicine
PROC: 0F798DZ Dilation of Common Bile Duct with Intraluminal Device, Via Natural or Artificial Opening Endoscopic (ICD-10-PCS; 2017-03-13)
PROC: 0F7D8DZ Dilation of Pancreatic Duct with Intraluminal Device, Via Natural or Artificial Opening Endoscopic (ICD-10-PCS; 2017-03-13)
PROC: 02HV33Z Insertion of Infusion Device into Superior Vena Cava, Percutaneous Approach (ICD-10-PCS; principal; 2017-03-17)
DX: A41.51 Sepsis due to Escherichia coli [E. coli] (principal); K83.0 Cholangitis; J44.9 Chronic obstructive pulmonary disease, unspecified; F33.1 Major depressive disorder, recurrent, moderate; Z16.23 Resistance to quinolones and fluoroquinolones; E89.0 Postprocedural hypothyroidism; I73.9 Peripheral vascular disease, unspecified; F17.210 Nicotine dependence, cigarettes, uncomplicated; D64.9 Anemia, unspecified; K80.70 Calculus of gallbladder and bile duct without cholecystitis without obstruction; I10 Essential (primary) hypertension

== ENCOUNTER 2017-06-18 11:33 | Emergency (ER) | payer MEDICARE, BC ==
[2017-06-18 11:34] VITALS: BMI 20.3
[2017-06-18 11:38] VITALS: BP 129/48; PULSE 68; RESP 16; TEMP 98; O2SAT 99
[2017-06-18] MEDS ORDERED: Sodium Chloride 0.9% 1,000 ML IV STA (12:39)
--- NOTE | 2017-06-18 13:02 | ED PDOC ---
HPI: Back Time Seen by Provider: 06/18/17 11:40 Chief Complaint (Nursing): Abdominal Pain Chief Complaint (Provider): Back Pain History Per: Patient History/Exam Limitations: no limitations Onset/Duration Of Symptoms: Days Current Symptoms Are (Timing): Still Present Quality Of Discomfort: "Pain" Additional Complaint(s): Lucas Hubbard, a 77 year old male, presents to the ED complaining of back pain. The patient states that he has problems with his gallbladder and woke up this morning with pain. Denies fever and vomiting. Patient states thta he expects Dr. Carter to come down and see him in the emergency room. PMD: Jeremiah Hager - Risk Factors AAA Risk Factors: Pos: Older Than 49 Years Of Age, Hypertension Past Medical History Reviewed: Historical Data, Nursing Documentation, Vital Signs Vital Signs: Last Vital Signs Temp 98.0 F 06/18/17 11:35 Pulse 68 06/18/17 11:35 Resp 16 06/18/17 11:35 BP 129/48 L 06/18/17 11:35 Pulse Ox 99 06/18/17 11:35 - Medical History PMH: Anemia, Anxiety, Arthritis (POLYMYALGIA RHEUMATICA), Bronchitis, Colonic Polyps, COPD, Depression, Gastritis, Gall Bladder Disease (HX CHOLANGITIS), Graves' Disease, HTN, Hypercholesterolemia, Hypothyroidism, Kidney Stones Denies: Diabetes, Hepatitis, HIV, Chronic Kidney Disease, Seizures, Sexually Transmitted Disease Other PMH: Overactive prostate - Surgical History Surgical History: Endoscopy Other surgeries: gastrectomy - Family History Family History: States: Unknown Family Hx - Social History Current smoker - smoking cessation education provided: Yes SMOKER/PACKS PER DAY:: 1 Ex-Smoker (has not smoked in the last 12 months): Yes Alcohol: None Drugs: Denies - Home Medications Home Medications: Ambulatory Orders Medication Instructions Recorded Levothyroxine [Synthroid] 88 mcg PO DAILY 03/11/17 Tamsulosin [Flomax] 0.8 mg PO DAILY 03/11/17 predniSONE [predniSONE Tab] 5 mg PO DAILY 03/11/17 Ferrous Sulfate 325 mg PO DAILY 05/01/17 Finasteride [Proscar] 5 mg PO DAILY 05/01/17 Docusate [Colace] 100 mg PO DAILY 06/18/17 Escitalopram [Lexapro] 10 mg PO HS 06/18/17 - Allergies Allergies/Adverse Reactions: Allergies Allergy/AdvReac Type Severity Reaction Status Date / Time No Known Allergies Allergy Verified 03/18/17 10:56 Review of Systems ROS Statement: Except As Marked, All Systems Reviewed And Found Negative Constitutional: Negative for: Fever Gastrointestinal: Negative for: Vomiting Musculoskeletal: Positive for: Back Pain Physical Exam - Reviewed Nursing Documentation Reviewed: Yes Vital Signs Reviewed: Yes - Physical Exam Appears: Positive for: Non-toxic Head Exam: Positive for: ATRAUMATIC, NORMAL INSPECTION, NORMOCEPHALIC Skin: Positive for: Normal Color, Warm, Dry Eye Exam: Positive for: Normal appearance, EOMI, PERRL. Negative for: Nystagmus ENT: Positive for: Normal ENT Inspection Neck: Positive for: Normal, Painless ROM, Supple Cardiovascular/Chest: Positive for: Regular Rate, Rhythm, Chest Non Tender. Negative for: Tachycardia Respiratory: Positive for: Normal Breath Sounds. Negative for: Wheezing, Respiratory Distress Gastrointestinal/Abdominal: Positive for: Normal Exam, Bowel Sounds, Soft. Negative for: Tenderness, Guarding, Rebound Back: Positive for: Normal Inspection. Negative for: L CVA Tenderness, R CVA Tenderness Extremity: Positive for: Normal ROM. Negative for: Tenderness, Deformity, Swelling Lymphatic: Positive for: Normal Exam Neurologic/Psych: Positive for: Alert, Oriented, Gait - Laboratory Results Result Diagrams: 06/18/17 12:53 06/18/17 12:53 - ECG O2 Sat by Pulse Oximetry: 99 (RA) Pulse Ox Interpretation: Normal Medical Decision Making Medical Decision Makin Initial Impression 77 y/o male presenting with back pain Initial Plan: * CMP * Lipase * CBC * NS 1000 ml IV 150 ml/hr * Urine C&S * Urinalysis * Reevaluation Patient charts reviewed and DR. Carter was called who states that the patient had an MRCP performed recently with a sphinterotomy recently for stones in the duct. 1346 Patient was seen by Dr. Carter who deemed him fit for discharge. pt reevaluted abdomen beningn. pt without pain. tolerated po. Scribe Attestation Documented by Mary Alarcon acting as a scribe for Shelby Lyon MD. Provider Attestation All medical record entries made by the Scribe were at my direction and personally dictated by me. I have reviewed the chart and agree that the record accurately reflects my personal performance of the history, physical exam, medical decision making, and the department course for this patient. I have also personally directed, reviewed, and agree with the discharge instructions and disposition. Disposition - Clinical Impression Clinical Impression: Abdominal pain - Patient ED Disposition Is Patient to be Admitted: No Counseled Patient/Family Regarding: Studies Performed, Diagnosis, Need For Followup - Disposition Referrals: Wilbert Carter MD [Staff Provider] - Disposition: Routine/Home Disposition Time: 13:05 Condition: IMPROVED Additional Instructions: follow up with your primary doctor in 1-2 days follow up with Dr. Carter in her office as instructed return to the ED with any worsening or concerning symptoms Instructions: Abdominal Pain (ED) Forms: [employer] ([place]) - POA Present On Arrival: None
[2017-06-18 13:14] LABS: BASO # 0.1 K/uL (0.0-0.2); BASO % 0.7 % (0.0-2.0); EOS # 0.1 K/uL (0.0-0.7); EOS % 1.3 % (0.0-4.0); LYMPH # 1.2 K/uL (1.0-4.3); LYMPH % 12.1 % (20.0-40.0); MEAN CELL VOLUME 85.5 fl (80.0-94.0); MEAN CORPUSCULAR HGB CONC 32.8 g/dL (33.0-37.0); MEAN PLATELET VOLUME 8.4 fl (7.2-11.7); MONO # 0.5 K/uL (0.0-0.8); NEUT # 8.3 K/uL (1.8-7.0); NEUT % 80.9 % (50.0-75.0); RED CELL DISTRIBUTION WIDTH 20.7 % (11.5-14.5); WHITE BLOOD COUNT 10.3 K/uL (4.8-10.8)
[2017-06-18 13:18] LABS: ALB/GLOB RATIO 1.4 (1.0-2.1); BILIRUBIN,TOTAL 0.6 mg/dl (0.2-1.3); CALCIUM 9.4 mg/dL (8.4-10.2); CARBON DIOXIDE 24 mmol/L (22-30); CHLORIDE 106 mmol/L (98-107); GFR AFRICAN-AMERICAN > 60; GLUCOSE,RANDOM 99 mg/dL (75-110); LIPASE 37 U/L (23-300); SODIUM 137 mmol/l (132-148); TOTAL PROTEIN 6.7 G/DL (6.3-8.2)
[2017-06-18 13:33] LABS: ALKALINE PHOSPHATASE 72 U/L (38-126); ALT/SGPT 38 U/L (21-72); AST/SGOT 32 U/L (17-59); BLOOD UREA NITROGEN 12 mg/dl (9-20)
== END 2017-06-18 14:18 | disposition home or self-care (01) ==
LOC: H.ER 11:33
DX: R10.9 Unspecified abdominal pain (principal); M54.9 Dorsalgia, unspecified; E03.9 Hypothyroidism, unspecified; E05.00 Thyrotoxicosis with diffuse goiter without thyrotoxic crisis or storm; E78.00 Pure hypercholesterolemia, unspecified; F17.210 Nicotine dependence, cigarettes, uncomplicated; F32.9 Major depressive disorder, single episode, unspecified; F41.9 Anxiety disorder, unspecified; I10 Essential (primary) hypertension; J44.9 Chronic obstructive pulmonary disease, unspecified; M35.3 Polymyalgia rheumatica; Z87.442 Personal history of urinary calculi

== ENCOUNTER 2017-06-22 10:43 | Emergency (ER) | payer MEDICARE, BC ==
[2017-06-22 10:43] VITALS: BMI 20.3
--- NOTE | 2017-06-22 11:48 | ED PDOC ---
HPI: Skin/Bite Injury Time Seen by Provider: 06/22/17 11:27 Chief Complaint (Nursing): Abdominal Pain Chief Complaint (Provider): Rash R abd History Per: Patient, Family History/Exam Limitations: no limitations Onset/Duration Of Symptoms: Days (5) Current Symptoms Are (Timing): Still Present Additional Complaint(s): Pt. with pain to the left abd going around to the back. Developed rash today morning to the same area. No numbness, tingles, weakness, headaches, dizziness, chest pain. Recently seen by Dr. Carter and told he has small gallstones which they will not remove considering his risk factors. No nausea, vomit, diarrhea. Past Medical History Reviewed: Nursing Documentation, Vital Signs Vital Signs: Last Vital Signs Temp 97.0 F L 06/22/17 11:04 Pulse 69 06/22/17 11:04 Resp 21 06/22/17 11:04 BP 133/54 L 06/22/17 11:04 Pulse Ox 96 06/22/17 11:04 - Medical History PMH: Anemia, Anxiety, Arthritis (POLYMYALGIA RHEUMATICA), Bronchitis, Colonic Polyps, COPD, Depression, Gastritis, Gall Bladder Disease (HX CHOLANGITIS), Graves' Disease, HTN, Hypercholesterolemia, Hypothyroidism, Kidney Stones Denies: Diabetes, Hepatitis, HIV, Chronic Kidney Disease, Seizures, Sexually Transmitted Disease - Surgical History Surgical History: Endoscopy - Family History Family History: States: Unknown Family Hx - Living Arrangements Living Arrangements: With Family - Social History Current smoker - smoking cessation education provided: No Alcohol: None Drugs: Denies - Home Medications Home Medications: Ambulatory Orders Medication Instructions Recorded Levothyroxine [Synthroid] 88 mcg PO DAILY 03/11/17 Tamsulosin [Flomax] 0.8 mg PO DAILY 03/11/17 predniSONE [predniSONE Tab] 5 mg PO DAILY 03/11/17 Ferrous Sulfate 325 mg PO DAILY 05/01/17 Finasteride [Proscar] 5 mg PO DAILY 05/01/17 Docusate [Colace] 100 mg PO DAILY 06/18/17 Escitalopram [Lexapro] 10 mg PO HS 06/18/17 Lidocaine 5% [Lidoderm] 1 ea TD DAILY PRN 7 Days patch 06/22/17 valACYclovir [Valtrex] 1,000 mg PO TID 7 Days tab 06/22/17 - Allergies Allergies/Adverse Reactions: Allergies Allergy/AdvReac Type Severity Reaction Status Date / Time No Known Allergies Allergy Verified 03/18/17 10:56 Review of Systems Constitutional: Negative for: Fever, Weakness Eyes: Negative for: Vision Change Cardiovascular: Negative for: Chest Pain, Palpitations Respiratory: Negative for: Cough, Shortness of Breath Gastrointestinal: Positive for: Abdominal Pain. Negative for: Nausea, Vomiting , Diarrhea Musculoskeletal: Negative for: Neck Pain, Arm Pain Skin: Positive for: Rash Neurological: Negative for: Weakness, Numbness Physical Exam - Reviewed Nursing Documentation Reviewed: Yes Vital Signs Reviewed: Yes - Physical Exam Appears: Positive for: Non-toxic, No Acute Distress Skin: Positive for: Rash (R flank, R back, and R abd; Stops at spine and central abd; in patches mild blanching and erythema; no lesions or vesicles; in shingles pattern mild tender.) Eye Exam: Positive for: EOMI, Normal appearance, PERRL ENT: Positive for: Normal ENT Inspection Neck: Positive for: Normal, Painless ROM Cardiovascular/Chest: Positive for: Regular Rate, Rhythm Respiratory: Positive for: CNT, Normal Breath Sounds Gastrointestinal/Abdominal: Positive for: Bowel Sounds, Soft Back: Negative for: L CVA Tenderness, R CVA Tenderness Extremity: Positive for: Normal ROM. Negative for: Tenderness Neurologic/Psych: Positive for: Alert, Oriented - ECG O2 Sat by Pulse Oximetry: 96 - Progress ED Course And Treament: 1150: Stable. AAOx3. Will tx for shingles. Has vicodin at home. Disposition - Clinical Impression Clinical Impression: Shingles - Patient ED Disposition Is Patient to be Admitted: No Counseled Patient/Family Regarding: Diagnosis, Need For Followup, Rx Given - Disposition Referrals: [facility] [Outside] - 06/23/17 Disposition: Routine/Home Disposition Time: 11:51 Condition: STABLE Additional Instructions: Return if not better in 3 days. Prescriptions: Lidocaine 5% [Lidoderm] 1 ea TD DAILY PRN 7 Days patch PRN Reason: Pain, Moderate (4-7) valACYclovir [Valtrex] 1,000 mg PO TID 7 Days tab Instructions: Shingles (ED) Forms: [employer] ([employer])
[2017-06-22] MEDS ORDERED: Lidocaine 5% Patch TD STA (11:58)
[2017-06-22] MEDS ORDERED: Lidocaine 5% Patch TD ONE (12:21)
[2017-06-22 12:38] VITALS: BP 128/70; PULSE 78; RESP 17; TEMP 97; O2SAT 98
== END 2017-06-22 12:38 | disposition home or self-care (01) ==
LOC: H.ER 10:43
DX: B02.9 Zoster without complications (principal)

== ENCOUNTER 2018-07-01 10:42 | Inpatient (IN) | payer MEDICARE, BC, OTHER ==
[2018-07-01 10:42] VITALS: BMI 20.3
--- NOTE | 2018-07-01 11:41 | ED PDOC ---
Lower Extremity Pain/Injury Time Seen by Provider: 07/01/18 11:11 Chief Complaint (Nursing): Lower Extremity Problem/Injury Chief Complaint (Provider): calf pain History Per: Patient History/Exam Limitations: no limitations Onset/Duration Of Symptoms: Days (3 weeks) Additional Complaint(s): Pt. with calf pain b/l for 3 weeks. Worse on walking. R more then left. Seen by PCP today and sent to Er for eval of dvt. Pt. has no dyspnea, chest pain, fever, cough, headaches, dizziness. Past Medical History Reviewed: Nursing Documentation, Vital Signs Vital Signs: Last Vital Signs Temp 97.2 F L 07/01/18 10:53 Pulse 75 07/01/18 10:53 Resp 18 07/01/18 10:53 BP 161/72 H 07/01/18 10:53 Pulse Ox 99 07/01/18 10:53 - Medical History PMH: Anemia, Anxiety, Arthritis (POLYMYALGIA RHEUMATICA), Bronchitis, Colonic Polyps, COPD, Depression, Gastritis, Gall Bladder Disease (HX CHOLANGITIS), Graves' Disease, HTN, Hypercholesterolemia, Hypothyroidism, Kidney Stones Denies: Diabetes, Hepatitis, HIV, Chronic Kidney Disease, Seizures, Sexually Transmitted Disease - Surgical History Surgical History: Endoscopy - Family History Family History: States: Unknown Family Hx - Home Medications Home Medications: Ambulatory Orders Medication Instructions Recorded Levothyroxine [Synthroid] 88 mcg PO DAILY 03/11/17 Tamsulosin [Flomax] 0.8 mg PO DAILY 03/11/17 predniSONE [predniSONE Tab] 5 mg PO DAILY 03/11/17 Ferrous Sulfate 325 mg PO DAILY 05/01/17 Finasteride [Proscar] 5 mg PO DAILY 05/01/17 Docusate [Colace] 100 mg PO DAILY 06/18/17 Escitalopram [Lexapro] 10 mg PO HS 06/18/17 Lidocaine 5% [Lidoderm] 1 ea TD DAILY PRN 7 Days patch 06/22/17 valACYclovir [Valtrex] 1,000 mg PO TID 7 Days tab 06/22/17 - Allergies Allergies/Adverse Reactions: Allergies Allergy/AdvReac Type Severity Reaction Status Date / Time No Known Allergies Allergy Verified 03/18/17 10:56 Review of Systems ROS Statement: Except As Marked, All Systems Reviewed And Found Negative Musculoskeletal: Positive for: Leg Pain Physical Exam - Reviewed Nursing Documentation Reviewed: Yes Vital Signs Reviewed: Yes - Physical Exam Appears: Positive for: Non-toxic, No Acute Distress Head Exam: Positive for: ATRAUMATIC, NORMAL INSPECTION, NORMOCEPHALIC Skin: Positive for: Normal Color, Warm, DRY Eye Exam: Positive for: EOMI, Normal appearance, PERRL ENT: Positive for: Normal ENT Inspection Neck: Positive for: Normal, Painless ROM Cardiovascular/Chest: Positive for: Regular Rate, Rhythm Respiratory: Positive for: CNT, Normal Breath Sounds Pulses-Dorsalis Pedis (L): 1+ Pulses-Dorsalis Pedis (R): 1+ Gastrointestinal/Abdominal: Positive for: Normal Exam, Soft Back: Positive for: Normal Inspection Extremity: Positive for: Normal ROM, Tenderness (b/l calf with no swelling, erythema, dc), Calf Tenderness. Negative for: Pedal Edema Neurologic/Psych: Positive for: Alert, Oriented - ECG O2 Sat by Pulse Oximetry: 99 - Radiology X-Ray: Interpreted by Me - CT Scan/US US Other Rad Studies (CT/US): Read By Radiologist Other Rad Interpretation: dvt - Progress ED Course And Treament: 1525: Dr. Rahman to fu on labs and dispo. Disposition - Clinical Impression Clinical Impression: DVT (deep venous thrombosis) - Patient ED Disposition Is Patient to be Admitted: Transfer of Care Counseled Patient/Family Regarding: Studies Performed, Diagnosis - Disposition Disposition Time: 15:26 Condition: STABLE Patient Signed Over To: Camille Rahman
--- NOTE | 2018-07-01 14:58 | US ---
Bilateral lower extremity ultrasound. Indication:r/o dvt Technique: Duplex ultrasound evaluation of the bilateral lower extremities Comparison: None available Findings: There is normal flow, compressibility, and augmentation of the bilateral common femoral, femoral, and popliteal veins. The bilateral posterior tibial veins appear patent. Echogenic material consistent, possibly non occlusive thrombus noted in the left proximal profunda vein. Impression: Suspect nonocclusive thrombus within the left proximal profunda vein. Otherwise unremarkable study.
[2018-07-01] MEDS ORDERED: Sodium Chloride 0.9% 1,000 ML IV STA (15:23)
--- NOTE | 2018-07-01 15:32 | US ---
Date of service: 07/01/2018 PROCEDURE: Duplex ultrasound of the bilateral lower extremity arteries. HISTORY: pain in calf COMPARISON: None available. TECHNIQUE: Grayscale and duplex Doppler evaluation of the bilateral common femoral, superficial femoral, popliteal, posterior tibial and dorsalis pedis arteries was performed.. FINDINGS: RIGHT LOWER EXTREMITY: RIGHT COMMON FEMORAL ARTERY: Widely patent. Maximal flow velocity of 98.3 cm/s. RIGHT SUPERFICIAL FEMORAL ARTERY: Diminished flow, extensive SFA plaque maximal flow velocity of cm/s. RIGHT POPLITEAL ARTERY:Considerable popliteal plaque with resultant maximal flow velocity of 235.8 cm/s. RIGHT POSTERIOR TIBIAL ARTERY: Widely patent. Maximal flow velocity of 17.6 cm/s. RIGHT DORSALIS PEDIS ARTERY: Widely patent. Maximal flow velocity of 8.3 cm/s. LEFT LOWER EXTREMITY: LEFT COMMON FEMORAL ARTERY: Heterogeneous plaque formation. Maximal flow velocity of 79.1 cm/s. LEFT SUPERFICIAL FEMORAL ARTERY: Intimal thickening is present Maximal flow velocity of 33.9 cm/s. LEFT POPLITEAL ARTERY:Widely patent. Maximal flow velocity of 23.5 cm/s. 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 Flow documented in the anterior tibial artery with peak systolic velocity 24.9 LEFT DORSALIS PEDIS ARTERY: Occluded left dorsalis pedis artery. Collateral flow to the ankle documented with peak systolic velocities 29.8 centimeter/second. cm/s. OTHER FINDINGS: None. IMPRESSION: Right arterial system: Diminished flow at and beyond the level of the right superficial femoral artery. Critical stenoses identified left popliteal artery. Resulting diminished flow to calf vessels as well as right dorsalis pedis artery. Left arterial system: Diminished flow proximally. Occlusive disease left posterior tibial artery with reconstitution 2 among other vessels anterior tibial artery in collateral flow without documentation of flow in the dorsalis pedis artery.
[2018-07-01 16:17] LABS: BASO # 0.1 K/uL (0.0-0.2); BASO % 0.5 % (0.0-2.0); EOS # 0.1 K/uL (0.0-0.7); EOS % 0.5 % (0.0-4.0); HEMOGLOBIN 16.9 g/dL (12.0-18.0); LYMPH # 1.2 K/uL (1.0-4.3); LYMPH % 8.8 % (20.0-40.0); MEAN CELL VOLUME 91.7 fl (80.0-94.0); MEAN CORPUSCULAR HEMOGLOBIN 30.7 pg (27.0-31.0); MEAN CORPUSCULAR HGB CONC 33.5 g/dL (33.0-37.0); MEAN PLATELET VOLUME 8.2 fl (7.2-11.7); MONO # 0.6 K/uL (0.0-0.8); MONO % 4.4 % (0.0-10.0); NEUT # 11.7 K/uL (1.8-7.0); NEUT % 85.8 % (50.0-75.0); PLATELET COUNT 274 K/uL (130-400); RED CELL DISTRIBUTION WIDTH 14.7 % (11.5-14.5); WHITE BLOOD COUNT 13.7 K/uL (4.8-10.8)
[2018-07-01 16:38] LABS: INR 0.9; PROTHROMBIN TIME 10.7 Seconds (9.8-13.1)
[2018-07-01 16:41] LABS: PARTIAL THROMBOPLASTIN TIME 39.4 Seconds (25.6-37.1)
[2018-07-01 16:43] LABS: ALB/GLOB RATIO 1.4 (1.0-2.1); ALBUMIN 4.3 g/dL (3.5-5.0); ALT/SGPT 31 U/L (21-72); AST/SGOT 24 U/L (17-59); BLOOD UREA NITROGEN 12 mg/dl (9-20); CALCIUM 9.8 mg/dL (8.4-10.2); GFR NON-AFRICAN AMERICAN > 60
[2018-07-01 17:22] LABS: LYMPHOCYTE 9 % (20-50); MONOCYTE 4 % (0-10); NEUTROPHIL 87 % (42-75); PLATELET ESTIMATE NORMAL (NORMAL); TOTAL CELLS COUNTED 100
[2018-07-01 17:23] LABS: ANISOCYTOSIS SLIGHT; LARGE PLATELETS PRESENT; OVALOCYTES SLIGHT; TEARDROP CELLS SLIGHT
--- NOTE | 2018-07-01 18:16 | ED PDOC ---
- Laboratory Results Result Diagrams: 07/03/18 05:45 07/03/18 05:45 - ECG O2 Sat by Pulse Oximetry: 99 Medical Decision Making Medical Decision Makin Pt signed out by Dr. Castillo pending Coagulation labs/studies. Spoke with Dr. Salmon and informed of coags...no additional suggestions. Contacted Dr. Moreno regarding admission. Dr. Moreno prefers to discuss with the patient and will contact me again regarding anticoaguation and admission. [address] Moreno and Dr. Weston. Pt to be admitted and started on Lovenox 60 mg BID. Disposition - Clinical Impression Clinical Impression: DVT (deep venous thrombosis) - POA Present On Arrival: None - Disposition Disposition: Admitted as In-Patient Disposition Time: 19:00 Condition: STABLE
--- NOTE | 2018-07-01 19:17 | CP.PCM.CON ---
Past Patient History - Infectious Disease Hx of Infectious Diseases: None - Past Medical History & Family History Past Medical History?: Yes - Past Social History Smoking Status: Heavy Smoker > 10 Cigarettes Daily - CARDIAC Hx Hypercholesterolemia: Yes Hx Hypertension: Yes - PULMONARY Hx Bronchitis: Yes Hx Chronic Obstructive Pulmonary Disease (COPD): Yes - NEUROLOGICAL Hx Seizures: No - HEENT Hx HEENT Problems: Yes Other/Comment: DRY EYE - RENAL Hx Chronic Kidney Disease: No Hx Kidney Stones: Yes - ENDOCRINE/METABOLIC Hx Hypothyroidism: Yes - HEMATOLOGICAL/ONCOLOGICAL Hx Anemia: Yes Hx Human Immunodeficiency Virus (HIV): No - INTEGUMENTARY Hx Dermatological Problems: Yes Hx Squamous Cell: Yes (RIGHT EAR) - MUSCULOSKELETAL/RHEUMATOLOGICAL Hx Arthritis: Yes (POLYMYALGIA RHEUMATICA) - GASTROINTESTINAL Hx Gall Bladder Disease: Yes (HX CHOLANGITIS) Hx Gastritis: Yes - GENITOURINARY/GYNECOLOGICAL Hx Sexually Transmitted Disorders: No - PSYCHIATRIC Hx Anxiety: Yes Hx Depression: Yes - SURGICAL HISTORY Hx Surgeries: Yes Hx Cataract Extraction: Yes Hx Eye Surgery: Yes Hx Thyroidectomy: Yes - ANESTHESIA Hx Anesthesia: Yes Hx Anesthesia Reactions: No Hx Malignant Hyperthermia: No Meds Allergies/Adverse Reactions: Allergies Allergy/AdvReac Type Severity Reaction Status Date / Time No Known Allergies Allergy Verified 03/18/17 10:56 - Medications Medications: Current Medications Enoxaparin Sodium (Lovenox) 60 mg SC Q12 NATHAN; Protocol Results - Vital Signs Recent Vital Signs: Last Vital Signs Temp 97.2 F L 07/01/18 10:53 Pulse 75 07/01/18 10:53 Resp 18 07/01/18 10:53 BP 161/72 H 07/01/18 10:53 Pulse Ox 99 07/01/18 18:58 - Labs Result Diagrams: 07/01/18 16:10 07/01/18 16:10 Labs: Laboratory Results - last 24 hr 07/01/18 07/01/18 07/01/18 16:00 16:10 16:10 WBC 13.7 H RBC 5.50 Hgb 16.9 D Hct 50.4 MCV 91.7 D MCH 30.7 MCHC 33.5 RDW 14.7 H Plt Count 274 MPV 8.2 Neut % (Auto) 85.8 H Lymph % (Auto) 8.8 L [place] % (Auto) 4.4 Eos % (Auto) 0.5 Baso % (Auto) 0.5 Neut # (Auto) 11.7 H Lymph # (Auto) 1.2 [place] # (Auto) 0.6 Eos # (Auto) 0.1 Baso # (Auto) 0.1 Neutrophils % (Manual) 87 H Lymphocytes % (Manual) 9 L Monocytes % (Manual) 4 Platelet Estimate Normal Large Platelets Present Anisocytosis (manual) Slight Tear Drop Cells Slight Ovalocytes Slight PT INR APTT Sodium 141 Potassium 4.7 Chloride 108 H Carbon Dioxide 26 Anion Gap 12 BUN 12 Creatinine 0.7 L Est GFR ( Amer) > 60 Est GFR (Non-Af Amer) > 60 Random Glucose 117 H Calcium 9.8 Total Bilirubin 0.5 AST 24 ALT 31 Alkaline Phosphatase 68 Troponin I < 0.0120 Total Protein 7.3 Albumin 4.3 Globulin 3.0 Albumin/Globulin Ratio 1.4 Blood Type O POSITIVE Antibody Screen Negative BBK History Checked Patient has bt 07/01/18 16:10 WBC RBC Hgb Hct MCV MCH MCHC RDW Plt Count MPV Neut % (Auto) Lymph % (Auto) [place] % (Auto) Eos % (Auto) Baso % (Auto) Neut # (Auto) Lymph # (Auto) [place] # (Auto) Eos # (Auto) Baso # (Auto) Neutrophils % (Manual) Lymphocytes % (Manual) Monocytes % (Manual) Platelet Estimate Large Platelets Anisocytosis (manual) Tear Drop Cells Ovalocytes PT 10.7 INR 0.9 APTT 39.4 H Sodium Potassium Chloride Carbon Dioxide Anion Gap BUN Creatinine Est GFR ( Amer) Est GFR (Non-Af Amer) Random Glucose Calcium Total Bilirubin AST ALT Alkaline Phosphatase Troponin I Total Protein Albumin Globulin Albumin/Globulin Ratio Blood Type Antibody Screen BBK History Checked
[2018-07-01] MEDS: Enoxaparin 60 mg Syringe SC SCH (20:14)
[2018-07-01] MEDS ORDERED: Iodixanol 320 MG/ML 100 ML BOTTLE IV ONE (21:00)
[2018-07-01] MEDS ORDERED: Sodium Chloride 0.9% 50 ML IV ONE (21:01)
[2018-07-01] MEDS ORDERED: Iodixanol 320 mg/ml 50 ml Sol IV ONE (21:01)
--- NOTE | 2018-07-01 21:11 | CP.PCM.PN ---
Subjective - Date & Time of Evaluation Date of Evaluation: 07/01/18 Time of Evaluation: 22:22 - Subjective Subjective: 78 yo with hx of leg pain presents to the ER with leg pain Objective - Vital Signs/Intake and Output Vital Signs (last 24 hours): Temp Pulse Resp BP Pulse Ox 98.2 F 58 L 18 148/72 97 07/01/18 20:18 07/01/18 20:18 07/01/18 20:18 07/01/18 20:18 07/01/18 20:16 - Medications Medications: Current Medications Atorvastatin Calcium (Lipitor) 20 mg PO DAILY [facility]ATH[facility] Enoxaparin Sodium (Lovenox) 60 mg SC Q12 NATHAN; Protocol Last Admin: 07/01/18 20:14 Dose: 60 mg - Labs Labs: 07/01/18 16:10 07/01/18 16:10 PT 10.7 Seconds (9.8-13.1) 07/01/18 16:10 INR 0.9 07/01/18 16:10 APTT 39.4 Seconds (25.6-37.1) H 07/01/18 16:10 - Respiratory Exam Respiratory Exam: NORMAL BREATHING PATTERN - Cardiovascular Exam Cardiovascular Exam: REGULAR RHYTHM - GI/Abdominal Exam GI & Abdominal Exam: Normal Bowel Sounds Assessment and Plan - Assessment and Plan (Free Text) Assessment: Venous doppler DVT proximal ?? deep veins D/W Hematology Periphereal artery dx significant arterial dx cardiology vascular ?? Hx CBD stone S/P ERCP Stent Ascending cholangitis E coli bacteremia Cholelithiasis f/u GI f/u surgery Hx Thyroid dx Endo Anemia etiol? w/u ordered Major Depression t/c Lexapro 5mg
--- NOTE | 2018-07-01 22:11 | CARD ---
APPROVED REPORT Date of service: 07/01/2018 EKG Measurement Heart [id number] <Conclusion> Normal sinus rhythm Normal ECG
[2018-07-02] MEDS ORDERED: Levothyroxine 88 MCG TAB PO SCH (06:30)
[2018-07-02 06:33] LABS: BASO # 0.1 K/uL (0.0-0.2); BASO % 1.3 % (0.0-2.0); EOS # 0.2 K/uL (0.0-0.7); EOS % 2.3 % (0.0-4.0); LYMPH # 1.8 K/uL (1.0-4.3); LYMPH % 18.8 % (20.0-40.0); MEAN CELL VOLUME 91.9 fl (80.0-94.0); MEAN CORPUSCULAR HEMOGLOBIN 30.8 pg (27.0-31.0); MEAN CORPUSCULAR HGB CONC 33.6 g/dL (33.0-37.0); MEAN PLATELET VOLUME 7.9 fl (7.2-11.7); MONO # 0.8 K/uL (0.0-0.8); MONO % 8.5 % (0.0-10.0); NEUT # 6.7 K/uL (1.8-7.0); NEUT % 69.1 % (50.0-75.0); NRBC % 0.2 % (0.0-0.0); RBC 4.53 Mil/uL (4.40-5.90); RED CELL DISTRIBUTION WIDTH 14.3 % (11.5-14.5); WHITE BLOOD COUNT 9.6 K/uL (4.8-10.8)
[2018-07-02 06:45] LABS: ALB/GLOB RATIO 1.3 (1.0-2.1); ALBUMIN 3.1 g/dL (3.5-5.0); ALT/SGPT 29 U/L (21-72); AMYLASE 50 U/L (30-110); AST/SGOT 15 U/L (17-59); BLOOD UREA NITROGEN 8 mg/dl (9-20); CALCIUM 8.6 mg/dL (8.4-10.2); GFR NON-AFRICAN AMERICAN > 60; LIPASE 19 U/L (23-300)
[2018-07-02] MEDS: Enoxaparin 60 mg Syringe SC SCH ×2 (09:50→21:25)
--- NOTE | 2018-07-02 11:24 | CP.PCM.CON ---
Past Patient History - Infectious Disease Hx of Infectious Diseases: None - Past Medical History & Family History Past Medical History?: Yes - Past Social History Smoking Status: Heavy Smoker > 10 Cigarettes Daily - CARDIAC Hx Hypercholesterolemia: Yes Hx Hypertension: Yes - PULMONARY Hx Respiratory Disorders: Yes Hx Bronchitis: Yes Hx Chronic Obstructive Pulmonary Disease (COPD): Yes - NEUROLOGICAL Hx Neurological Disorder: No Hx Seizures: No - HEENT Hx HEENT Problems: No - RENAL Hx Chronic Kidney Disease: No - ENDOCRINE/METABOLIC Hx Endocrine Disorders: Yes Hx Hypothyroidism: Yes - HEMATOLOGICAL/ONCOLOGICAL Hx AIDS: No Hx Anemia: Yes Hx Human Immunodeficiency Virus (HIV): No - INTEGUMENTARY Hx Dermatological Problems: No - MUSCULOSKELETAL/RHEUMATOLOGICAL Hx Arthritis: Yes Hx Falls: No - GASTROINTESTINAL Hx Gall Bladder Disease: Yes (HX CHOLANGITIS) Hx Gastritis: Yes - GENITOURINARY/GYNECOLOGICAL Hx Sexually Transmitted Disorders: No - PSYCHIATRIC Hx Psychophysiologic Disorder: Yes Hx Depression: Yes Hx Substance Use: No - SURGICAL HISTORY Hx Surgeries: Yes Hx Cataract Extraction: Yes Hx Eye Surgery: Yes Hx Thyroidectomy: Yes - ANESTHESIA Hx Anesthesia: Yes Hx Anesthesia Reactions: No Hx Malignant Hyperthermia: No Has any member of the family had a problem w/ anesthesia?: No Meds Allergies/Adverse Reactions: Allergies Allergy/AdvReac Type Severity Reaction Status Date / Time No Known Allergies Allergy Verified 03/18/17 10:56 - Medications Medications: Current Medications Atorvastatin Calcium (Lipitor) 20 mg PO DAILY [facility] Atorvastatin Calcium (Lipitor) 10 mg PO DAILY [facility] Last Admin: 07/02/18 10:20 Dose: 10 mg Enoxaparin Sodium (Lovenox) 60 mg SC Q12 [facility]; Protocol Last Admin: 07/02/18 09:50 Dose: 60 mg Escitalopram Oxalate (Lexapro) 10 mg PO [facility] Finasteride (Proscar) 5 mg PO DAILY [facility] Last Admin: 07/02/18 09:51 Dose: 5 mg Home Med (Ferrous Sulfate [Slow Fe]) 1 tab PO DAILY [facility] Dextrose/Sodium Chloride (Dextrose 5%-0.45% Ns 500 Ml) 500 mls @ 40 mls/hr IV .[id number] [facility] Stop: 07/03/18 22:49 Last Admin: 07/01/18 23:07 Dose: 40 mls/hr Levothyroxine Sodium (Synthroid) 88 mcg PO DAILY@0630 [facility] Prednisone (Prednisone Tab) 5 mg PO DAILY [facility] Last Admin: 07/02/18 09:51 Dose: 5 mg Tamsulosin HCl (Flomax) 0.8 mg PO DAILY [facility] Last Admin: 07/02/18 09:51 Dose: 0.8 mg Results - Vital Signs Recent Vital Signs: Last Vital Signs Temp 97.8 F 07/02/18 08:12 Pulse 62 07/02/18 08:12 Resp 18 07/02/18 08:12 BP 136/70 07/02/18 08:12 Pulse Ox 95 07/02/18 08:12 - Labs Result Diagrams: 07/02/18 06:00 07/02/18 06:00 Labs: Laboratory Results - last 24 hr 07/01/18 07/01/18 07/01/18 16:00 16:10 16:10 WBC 13.7 H RBC 5.50 Hgb 16.9 D Hct 50.4 MCV 91.7 D MCH 30.7 MCHC 33.5 RDW 14.7 H Plt Count 274 MPV 8.2 Neut % (Auto) 85.8 H Lymph % (Auto) 8.8 L [place] % (Auto) 4.4 Eos % (Auto) 0.5 Baso % (Auto) 0.5 Neut # (Auto) 11.7 H Lymph # (Auto) 1.2 [place] # (Auto) 0.6 Eos # (Auto) 0.1 Baso # (Auto) 0.1 Neutrophils % (Manual) 87 H Lymphocytes % (Manual) 9 L Monocytes % (Manual) 4 Platelet Estimate Normal Large Platelets Present Anisocytosis (manual) Slight Tear Drop Cells Slight Ovalocytes Slight PT INR APTT Sodium 141 Potassium 4.7 Chloride 108 H Carbon Dioxide 26 Anion Gap 12 BUN 12 Creatinine 0.7 L Est GFR ( Amer) > 60 Est GFR (Non-Af Amer) > 60 Random Glucose 117 H Calcium 9.8 Total Bilirubin 0.5 AST 24 ALT 31 Alkaline Phosphatase 68 Troponin I < 0.0120 Total Protein 7.3 Albumin 4.3 Globulin 3.0 Albumin/Globulin Ratio 1.4 Amylase Lipase Blood Type O POSITIVE Antibody Screen Negative BBK History Checked Patient has bt 07/01/18 07/02/18 07/02/18 16:10 06:00 06:00 WBC 9.6 RBC 4.53 Hgb 14.0 D Hct 41.6 MCV 91.9 MCH 30.8 MCHC 33.6 RDW 14.3 Plt Count 226 MPV 7.9 Neut % (Auto) 69.1 Lymph % (Auto) 18.8 L [place] % (Auto) 8.5 Eos % (Auto) 2.3 Baso % (Auto) 1.3 Neut # (Auto) 6.7 Lymph # (Auto) 1.8 [place] # (Auto) 0.8 Eos # (Auto) 0.2 Baso # (Auto) 0.1 Neutrophils % (Manual) Lymphocytes % (Manual) Monocytes % (Manual) Platelet Estimate Large Platelets Anisocytosis (manual) Tear Drop Cells Ovalocytes PT 10.7 INR 0.9 APTT 39.4 H Sodium 139 Potassium 3.5 L Chloride 109 H Carbon Dioxide 24 Anion Gap 10 BUN 8 L Creatinine 0.7 L Est GFR ( Amer) > 60 Est GFR (Non-Af Amer) > 60 Random Glucose 95 Calcium 8.6 Total Bilirubin 0.4 AST 15 L D ALT 29 Alkaline Phosphatase 55 Troponin I Total Protein 5.5 L Albumin 3.1 L D Globulin 2.5 Albumin/Globulin Ratio 1.3 Amylase 50 Lipase 19 L Blood Type Antibody Screen BBK History Checked
--- NOTE | 2018-07-02 11:42 | CP.PCM.CON ---
History of Present Illness - History of Present Illness History of Present Illness: I WAS ASKED TO SEE THIS 78 YEAR OLD MALE BY DR BAILEY. HE IS A LONG TIME SMOKER AND HAS HAD LEG PAIN FOR A LONG TIME AND THE PAIN HAS GOTTEN MUCH WORSE OVER THE PAST FEW WEEKS TO THE POINT THAT IT IS TOO PAINFUL TO WALK SO IT EAS DECIDED TO ADMIT HIM FOR A [place] AND TREATMENT. HE ALSO HAS A HISTORY OF HYPERLIPIDEMIA, COPD, A GOITER WITH THYROID SURGERY, VISUAL AND HEARING PROBLEMS, BPH, KIDNEY STONES AND DEPRESSION. HE DENIES CHEST PAIN OR ANY CAD HISTORY. DR SHARMA WAS ASKED TO SEE HIM ALSO FOR PAD AND A CT ANGIO OF THE LE WAS ORDERED. Past Patient History - Infectious Disease Hx of Infectious Diseases: None - Past Medical History & Family History Past Medical History?: Yes - Past Social History Smoking Status: Heavy Smoker > 10 Cigarettes Daily - CARDIAC Hx Hypercholesterolemia: Yes Hx Hypertension: Yes - PULMONARY Hx Respiratory Disorders: Yes Hx Bronchitis: Yes Hx Chronic Obstructive Pulmonary Disease (COPD): Yes - NEUROLOGICAL Hx Neurological Disorder: No Hx Seizures: No - HEENT Hx HEENT Problems: No - RENAL Hx Chronic Kidney Disease: No - ENDOCRINE/METABOLIC Hx Endocrine Disorders: Yes Hx Hypothyroidism: Yes - HEMATOLOGICAL/ONCOLOGICAL Hx AIDS: No Hx Anemia: Yes Hx Human Immunodeficiency Virus (HIV): No - INTEGUMENTARY Hx Dermatological Problems: No - MUSCULOSKELETAL/RHEUMATOLOGICAL Hx Arthritis: Yes Hx Falls: No - GASTROINTESTINAL Hx Gall Bladder Disease: Yes (HX CHOLANGITIS) Hx Gastritis: Yes - GENITOURINARY/GYNECOLOGICAL Hx Sexually Transmitted Disorders: No - PSYCHIATRIC Hx Psychophysiologic Disorder: Yes Hx Depression: Yes Hx Substance Use: No - SURGICAL HISTORY Hx Surgeries: Yes Hx Cataract Extraction: Yes Hx Eye Surgery: Yes Hx Thyroidectomy: Yes - ANESTHESIA Hx Anesthesia: Yes Hx Anesthesia Reactions: No Hx Malignant Hyperthermia: No Has any member of the family had a problem w/ anesthesia?: No Meds Allergies/Adverse Reactions: Allergies Allergy/AdvReac Type Severity Reaction Status Date / Time No Known Allergies Allergy Verified 03/18/17 10:56 - Medications Medications: Current Medications Atorvastatin Calcium (Lipitor) 20 mg PO DAILY [facility] Atorvastatin Calcium (Lipitor) 10 mg PO DAILY [facility] Last Admin: 07/02/18 10:20 Dose: 10 mg Enoxaparin Sodium (Lovenox) 60 mg SC Q12 [facility]; Protocol Last Admin: 07/02/18 09:50 Dose: 60 mg Escitalopram Oxalate (Lexapro) 10 mg PO [facility] Finasteride (Proscar) 5 mg PO DAILY [facility] Last Admin: 07/02/18 09:51 Dose: 5 mg Home Med (Ferrous Sulfate [Slow Fe]) 1 tab PO DAILY [facility] Dextrose/Sodium Chloride (Dextrose 5%-0.45% Ns 500 Ml) 500 mls @ 40 mls/hr IV .[id number] [facility] Stop: 07/03/18 22:49 Last Admin: 07/01/18 23:07 Dose: 40 mls/hr Levothyroxine Sodium (Synthroid) 88 mcg PO DAILY@0630 [facility] Prednisone (Prednisone Tab) 5 mg PO DAILY [facility] Last Admin: 07/02/18 09:51 Dose: 5 mg Tamsulosin HCl (Flomax) 0.8 mg PO DAILY [facility] Last Admin: 07/02/18 09:51 Dose: 0.8 mg Physical Exam - Respiratory Exam Respiratory Exam: Clear to Auscultation Bilateral - Cardiovascular Exam Cardiovascular Exam: REGULAR RHYTHM, +S1, +S2 - Extremities Exam Additional comments: NO EDEMA OF LE DECREASED PULSES IN LE - Additional Findings Additional findings: EKG NSR Results - Vital Signs Recent Vital Signs: Last Vital Signs Temp 97.8 F 07/02/18 08:12 Pulse 62 07/02/18 08:12 Resp 18 07/02/18 08:12 BP 136/70 07/02/18 08:12 Pulse Ox 95 07/02/18 08:12 - Labs Result Diagrams: 07/02/18 06:00 07/02/18 06:00 Labs: Laboratory Results - last 24 hr 07/01/18 07/01/18 07/01/18 16:00 16:10 16:10 WBC 13.7 H RBC 5.50 Hgb 16.9 D Hct 50.4 MCV 91.7 D MCH 30.7 MCHC 33.5 RDW 14.7 H Plt Count 274 MPV 8.2 Neut % (Auto) 85.8 H Lymph % (Auto) 8.8 L [place] % (Auto) 4.4 Eos % (Auto) 0.5 Baso % (Auto) 0.5 Neut # (Auto) 11.7 H Lymph # (Auto) 1.2 Bailey # (Auto) 0.6 Eos # (Auto) 0.1 Baso # (Auto) 0.1 Neutrophils % (Manual) 87 H Lymphocytes % (Manual) 9 L Monocytes % (Manual) 4 Platelet Estimate Normal Large Platelets Present Anisocytosis (manual) Slight Tear Drop Cells Slight Ovalocytes Slight PT INR APTT Sodium 141 Potassium 4.7 Chloride 108 H Carbon Dioxide 26 Anion Gap 12 BUN 12 Creatinine 0.7 L Est GFR ( Amer) > 60 Est GFR (Non-Af Amer) > 60 Random Glucose 117 H Calcium 9.8 Total Bilirubin 0.5 AST 24 ALT 31 Alkaline Phosphatase 68 Troponin I < 0.0120 Total Protein 7.3 Albumin 4.3 Globulin 3.0 Albumin/Globulin Ratio 1.4 Amylase Lipase Blood Type O POSITIVE Antibody Screen Negative BBK History Checked Patient has bt 07/01/18 07/02/18 07/02/18 16:10 06:00 06:00 WBC 9.6 RBC 4.53 Hgb 14.0 D Hct 41.6 MCV 91.9 MCH 30.8 MCHC 33.6 RDW 14.3 Plt Count 226 MPV 7.9 Neut % (Auto) 69.1 Lymph % (Auto) 18.8 L Bailey % (Auto) 8.5 Eos % (Auto) 2.3 Baso % (Auto) 1.3 Neut # (Auto) 6.7 Lymph # (Auto) 1.8 Bailey # (Auto) 0.8 Eos # (Auto) 0.2 Baso # (Auto) 0.1 Neutrophils % (Manual) Lymphocytes % (Manual) Monocytes % (Manual) Platelet Estimate Large Platelets Anisocytosis (manual) Tear Drop Cells Ovalocytes PT 10.7 INR 0.9 APTT 39.4 H Sodium 139 Potassium 3.5 L Chloride 109 H Carbon Dioxide 24 Anion Gap 10 BUN 8 L Creatinine 0.7 L Est GFR ( Amer) > 60 Est GFR (Non-Af Amer) > 60 Random Glucose 95 Calcium 8.6 Total Bilirubin 0.4 AST 15 L D ALT 29 Alkaline Phosphatase 55 Troponin I Total Protein 5.5 L Albumin 3.1 L D Globulin 2.5 Albumin/Globulin Ratio 1.3 Amylase 50 Lipase 19 L Blood Type Antibody Screen BBK History Checked Assessment & Plan - Assessment and Plan (Free Text) Assessment: PAD OF LE WITH RECENT INCREASE IN PAIN HYPERLIPIDEMIA COPD THYROID SURGERY FOR A GOITER Plan: CONTINUE ATORVASTATIN, LOVENOX AND IV FLUIDS LIPID PROFILE LE CT ANGIO
--- NOTE | 2018-07-02 14:31 | CT ---
Date of service: 07/01/2018 PROCEDURE: CT Angiography Abdomen, Pelvis and Lower Extremity with Contrast HISTORY: claudication COMPARISON: None available. TECHNIQUE: Technique: CT angiography of the abdomen, pelvis and bilateral lower extremities performed in the arterial phase of enhancement. Coronal and sagittal reformats, and well as rotating MIP images of the vessels generated at the workstation. Intravenous contrast dose: 150 MILLILITERS VISIPAQUE 320 Radiation dose: Total exam DLP = 786.62 mGy-cm. This CT exam was performed using one or more of the following dose reduction techniques: Automated exposure control, adjustment of the mA and/or kV according to patient size, and/or use of iterative reconstruction technique. FINDINGS: CT ANGIOGRAPHY: ABDOMINAL AORTA:: Moderate plaque throughout the abdominal aorta without stenosis or aneurysm MAJOR AORTIC BRANCHES: Celiac [place]: Unremarkable. Superior mesenteric artery: Unremarkable. Inferior mesenteric artery: Unremarkable. Renal arteries: Possible mild- moderate stenosis is at the origin of the right renal artery. PELVIC ARTERIES: Right Common Iliac: Moderate plaque with no stenosis. Right External Iliac: Unremarkable. Right Internal Iliac: Unremarkable. Left Common Iliac: Unremarkable. Left External Iliac: Unremarkable. Left Internal Iliac: Unremarkable. RIGHT LOWER EXTREMITY ARTERIES: Right Common Femoral: Moderate plaque with no stenosis. Right Superficial Femoral: Mild stenosis of the proximal SFA. Occlusion of the mid SFA with distal reconstitution. Right Profunda Femoris: Unremarkable. Right Popliteal:Unremarkable. Right Anterior Tibial: Occluded. Right Tibioperoneal Trunk: Unremarkable. Right Posterior Tibial: Unremarkable. Right Peroneal: Unremarkable. Right dorsalis pedis : Unremarkable. LEFT LOWER EXTREMITY ARTERIES: Left Common Femoral: Unremarkable. Left Superficial Femoral: Moderate stenosis in the proximal SFA. Occlusion of the mid SFA with distal SFA reconstitution. Left Profunda Femoris: Unremarkable. Left Popliteal: Mild stenosis of popliteal artery. Left Anterior Tibial: Mild calcific plaque at the origin but otherwise patent. Left Tibioperoneal Trunk: Unremarkable. Left Posterior Tibial: Occluded Left Peroneal: Occluded Left Dorsalis pedis: Unremarkable. NON-ANGIOGRAPHIC ASPECT OF THE EXAM: LOWER THORAX: Unremarkable. LIVER: Unremarkable. No gross lesion or ductal dilatation. GALLBLADDER AND BILE DUCTS: Unremarkable. PANCREAS: Unremarkable. No gross lesion or ductal dilatation. SPLEEN: Unremarkable. ADRENALS: Unremarkable. No mass. KIDNEYS AND URETERS: Unremarkable. No hydronephrosis. No solid mass. STOMACH AND BOWEL: Unremarkable. No obstruction. No gross mural thickening. APPENDIX: Normal appendix. PERITONEUM: Unremarkable. No free fluid. No free air. LYMPH NODES: Unremarkable. No enlarged lymph nodes. BLADDER: Unremarkable. REPRODUCTIVE: Unremarkable. BONES: No acute fracture. OTHER FINDINGS: None. IMPRESSION: CT ANGIOGRAM ABDOMEN/PELVIS: 1. Essentially unremarkable CT angiogram of the abdomen pelvis. LEFT LOWER EXTREMITY CT ANGIOGRAM: 1. There is moderate stenosis of the proximal SFA. There occlusion of the mid SFA with distal reconstitution. 2. Mild stenosis of the popliteal artery. 3. The common femoral artery profunda femoral artery normal. 4. Runoff shows a patent anterior tibial artery. The posterior tibial artery and peroneal artery are occluded. RIGHT LOWER EXTREMITY CT ANGIOGRAM: 1. Mild stenosis of proximal SFA. Occlusion of the mid SFA with distal reconstitution. 2. The common femoral artery, profunda femoral artery normal. 3. There is mild stenosis of popliteal artery. 4. Runoff shows a patent posterior tibial artery and peroneal artery. The anterior tibial artery is occluded
--- NOTE | 2018-07-02 14:59 | CP.PCM.CON ---
History of Present Illness - History of Present Illness History of Present Illness: 78 yo male seen in the past for CBD stones and had several ERCP. Last one 04/2017 resulted in clearing of stones from CBD and pulling of stent. Now asx Review of Systems - Constitutional Constitutional: absent: Chills - EENT Eyes: absent: Blurred Vision Nose/Mouth/Throat: absent: Nasal Congestion - Cardiovascular Cardiovascular: absent: Chest Pain - Respiratory Respiratory: absent: Dyspnea - Gastrointestinal Gastrointestinal: absent: Belching Past Patient History - Infectious Disease Hx of Infectious Diseases: None - Past Medical History & Family History Past Medical History?: Yes - Past Social History Smoking Status: Heavy Smoker > 10 Cigarettes Daily - CARDIAC Hx Hypercholesterolemia: Yes Hx Hypertension: Yes - PULMONARY Hx Respiratory Disorders: Yes Hx Bronchitis: Yes Hx Chronic Obstructive Pulmonary Disease (COPD): Yes - NEUROLOGICAL Hx Neurological Disorder: No Hx Seizures: No - HEENT Hx HEENT Problems: No - RENAL Hx Chronic Kidney Disease: No - ENDOCRINE/METABOLIC Hx Endocrine Disorders: Yes Hx Hypothyroidism: Yes - HEMATOLOGICAL/ONCOLOGICAL Hx AIDS: No Hx Anemia: Yes Hx Human Immunodeficiency Virus (HIV): No - INTEGUMENTARY Hx Dermatological Problems: No - MUSCULOSKELETAL/RHEUMATOLOGICAL Hx Arthritis: Yes Hx Falls: No - GASTROINTESTINAL Hx Gall Bladder Disease: Yes (HX CHOLANGITIS) Hx Gastritis: Yes - GENITOURINARY/GYNECOLOGICAL Hx Sexually Transmitted Disorders: No - PSYCHIATRIC Hx Psychophysiologic Disorder: Yes Hx Depression: Yes Hx Substance Use: No - SURGICAL HISTORY Hx Surgeries: Yes Hx Cataract Extraction: Yes Hx Eye Surgery: Yes Hx Thyroidectomy: Yes - ANESTHESIA Hx Anesthesia: Yes Hx Anesthesia Reactions: No Hx Malignant Hyperthermia: No Has any member of the family had a problem w/ anesthesia?: No Meds Allergies/Adverse Reactions: Allergies Allergy/AdvReac Type Severity Reaction Status Date / Time No Known Allergies Allergy Verified 03/18/17 10:56 - Medications Medications: Current Medications Atorvastatin Calcium (Lipitor) 10 mg PO DAILY [facility] Last Admin: 07/02/18 10:20 Dose: 10 mg Enoxaparin Sodium (Lovenox) 60 mg SC Q12 [facility]; Protocol Last Admin: 07/02/18 09:50 Dose: 60 mg Escitalopram Oxalate (Lexapro) 10 mg PO HS [facility] Ferrous Sulfate (Feosol) 325 mg PO DAILY [facility] Finasteride (Proscar) 5 mg PO DAILY [facility] Last Admin: 07/02/18 09:51 Dose: 5 mg Dextrose/Sodium Chloride (Dextrose 5%-0.45% Ns 500 Ml) 500 mls @ 40 mls/hr IV .[id number] [facility] Stop: 07/03/18 22:49 Last Admin: 07/02/18 13:02 Dose: 40 mls/hr Levothyroxine Sodium (Synthroid) 88 mcg PO DAILY@0630 [facility] Prednisone (Prednisone Tab) 5 mg PO DAILY [facility] Last Admin: 07/02/18 09:51 Dose: 5 mg Tamsulosin HCl (Flomax) 0.8 mg PO DAILY [facility] Last Admin: 07/02/18 09:51 Dose: 0.8 mg Physical Exam - Head Exam Head Exam: NORMAL INSPECTION - Eye Exam Eye Exam: EOMI - ENT Exam ENT Exam: Mucous Membranes Moist - Respiratory Exam Respiratory Exam: Clear to Auscultation Bilateral - Cardiovascular Exam Cardiovascular Exam: REGULAR RHYTHM - GI/Abdominal Exam GI & Abdominal Exam: Normal Bowel Sounds - Rectal Exam Rectal Exam: NORMAL INSPECTION Results - Vital Signs Recent Vital Signs: Last Vital Signs Temp 97.8 F 07/02/18 08:12 Pulse 62 07/02/18 08:12 Resp 18 07/02/18 08:12 BP 136/70 07/02/18 08:12 Pulse Ox 95 07/02/18 08:12 - Labs Result Diagrams: 07/02/18 06:00 07/02/18 06:00 Labs: Laboratory Results - last 24 hr 07/01/18 07/01/18 07/01/18 16:00 16:10 16:10 WBC 13.7 H RBC 5.50 Hgb 16.9 D Hct 50.4 MCV 91.7 D MCH 30.7 MCHC 33.5 RDW 14.7 H Plt Count 274 MPV 8.2 Neut % (Auto) 85.8 H Lymph % (Auto) 8.8 L Barren % (Auto) 4.4 Eos % (Auto) 0.5 Baso % (Auto) 0.5 Neut # (Auto) 11.7 H Lymph # (Auto) 1.2 Barren # (Auto) 0.6 Eos # (Auto) 0.1 Baso # (Auto) 0.1 Neutrophils % (Manual) 87 H Lymphocytes % (Manual) 9 L Monocytes % (Manual) 4 Platelet Estimate Normal Large Platelets Present Anisocytosis (manual) Slight Tear Drop Cells Slight Ovalocytes Slight PT INR APTT Sodium 141 Potassium 4.7 Chloride 108 H Carbon Dioxide 26 Anion Gap 12 BUN 12 Creatinine 0.7 L Est GFR ( Amer) > 60 Est GFR (Non-Af Amer) > 60 Random Glucose 117 H Calcium 9.8 Total Bilirubin 0.5 AST 24 ALT 31 Alkaline Phosphatase 68 Troponin I < 0.0120 Total Protein 7.3 Albumin 4.3 Globulin 3.0 Albumin/Globulin Ratio 1.4 Amylase Lipase Blood Type O POSITIVE Antibody Screen Negative BBK History Checked Patient has bt 07/01/18 07/02/18 07/02/18 16:10 06:00 06:00 WBC 9.6 RBC 4.53 Hgb 14.0 D Hct 41.6 MCV 91.9 MCH 30.8 MCHC 33.6 RDW 14.3 Plt Count 226 MPV 7.9 Neut % (Auto) 69.1 Lymph % (Auto) 18.8 L Barren % (Auto) 8.5 Eos % (Auto) 2.3 Baso % (Auto) 1.3 Neut # (Auto) 6.7 Lymph # (Auto) 1.8 Barren # (Auto) 0.8 Eos # (Auto) 0.2 Baso # (Auto) 0.1 Neutrophils % (Manual) Lymphocytes % (Manual) Monocytes % (Manual) Platelet Estimate Large Platelets Anisocytosis (manual) Tear Drop Cells Ovalocytes PT 10.7 INR 0.9 APTT 39.4 H Sodium 139 Potassium 3.5 L Chloride 109 H Carbon Dioxide 24 Anion Gap 10 BUN 8 L Creatinine 0.7 L Est GFR ( Amer) > 60 Est GFR (Non-Af Amer) > 60 Random Glucose 95 Calcium 8.6 Total Bilirubin 0.4 AST 15 L D ALT 29 Alkaline Phosphatase 55 Troponin I Total Protein 5.5 L Albumin 3.1 L D Globulin 2.5 Albumin/Globulin Ratio 1.3 Amylase 50 Lipase 19 L Blood Type Antibody Screen BBK History Checked Assessment & Plan (1) Choledocholithiasis Assessment and Plan: Currently asx and LFTs normal. No further biliary testing needed Status: Acute
--- NOTE | 2018-07-02 18:21 | CP.PCM.HP ---
History of Present Illness - History of Present Illness History of Present Illness: 78 yo admitted for DVT Present on Admission - Present on Admission Any Indicators Present on Admission: No Past Patient History - Infectious Disease Hx of Infectious Diseases: None - Past Medical History & Family History Past Medical History?: Yes - Past Social History Smoking Status: Heavy Smoker > 10 Cigarettes Daily - CARDIAC Hx Hypercholesterolemia: Yes Hx Hypertension: Yes - PULMONARY Hx Respiratory Disorders: Yes Hx Bronchitis: Yes Hx Chronic Obstructive Pulmonary Disease (COPD): Yes - NEUROLOGICAL Hx Neurological Disorder: No Hx Seizures: No - HEENT Hx HEENT Problems: No - RENAL Hx Chronic Kidney Disease: No - ENDOCRINE/METABOLIC Hx Endocrine Disorders: Yes Hx Hypothyroidism: Yes - HEMATOLOGICAL/ONCOLOGICAL Hx AIDS: No Hx Anemia: Yes Hx Human Immunodeficiency Virus (HIV): No - INTEGUMENTARY Hx Dermatological Problems: No - MUSCULOSKELETAL/RHEUMATOLOGICAL Hx Arthritis: Yes Hx Falls: No - GASTROINTESTINAL Hx Gall Bladder Disease: Yes (HX CHOLANGITIS) Hx Gastritis: Yes - GENITOURINARY/GYNECOLOGICAL Hx Sexually Transmitted Disorders: No - PSYCHIATRIC Hx Psychophysiologic Disorder: Yes Hx Depression: Yes Hx Substance Use: No - SURGICAL HISTORY Hx Surgeries: Yes Hx Cataract Extraction: Yes Hx Eye Surgery: Yes Hx Thyroidectomy: Yes - ANESTHESIA Hx Anesthesia: Yes Hx Anesthesia Reactions: No Hx Malignant Hyperthermia: No Has any member of the family had a problem w/ anesthesia?: No Meds Allergies/Adverse Reactions: Allergies Allergy/AdvReac Type Severity Reaction Status Date / Time No Known Allergies Allergy Verified 03/18/17 10:56 Physical Exam - Respiratory Exam Respiratory Exam: NORMAL BREATHING PATTERN - Cardiovascular Exam Cardiovascular Exam: REGULAR RHYTHM - GI/Abdominal Exam GI & Abdominal Exam: Normal Bowel Sounds Results - Vital Signs Recent Vital Signs: Last Vital Signs Temp 98 F 07/02/18 16:25 Pulse 60 07/02/18 16:25 Resp 20 07/02/18 16:25 BP 146/61 07/02/18 16:25 Pulse Ox 96 07/02/18 16:25 - Labs Result Diagrams: 07/02/18 06:00 07/02/18 06:00 Labs: Laboratory Results - last 24 hr 07/02/18 07/02/18 06:00 06:00 WBC 9.6 RBC 4.53 Hgb 14.0 D Hct 41.6 MCV 91.9 MCH 30.8 MCHC 33.6 RDW 14.3 Plt Count 226 MPV 7.9 Neut % (Auto) 69.1 Lymph % (Auto) 18.8 L Hartley % (Auto) 8.5 Eos % (Auto) 2.3 Baso % (Auto) 1.3 Neut # (Auto) 6.7 Lymph # (Auto) 1.8 Hartley # (Auto) 0.8 Eos # (Auto) 0.2 Baso # (Auto) 0.1 Sodium 139 Potassium 3.5 L Chloride 109 H Carbon Dioxide 24 Anion Gap 10 BUN 8 L Creatinine 0.7 L Est GFR ( Amer) > 60 Est GFR (Non-Af Amer) > 60 Random Glucose 95 Calcium 8.6 Total Bilirubin 0.4 AST 15 L D ALT 29 Alkaline Phosphatase 55 Total Protein 5.5 L Albumin 3.1 L D Globulin 2.5 Albumin/Globulin Ratio 1.3 Amylase 50 Lipase 19 L Assessment & Plan - Assessment and Plan (Free Text) Assessment: Venous doppler DVT proximal ?? deep veins D/W Hematology Lovenox 60 mg BID Hx Pulmonary dx Pulmonary Periphereal artery dx significant arterial dx cardiology vascular ?? Hx CBD stone S/P ERCP Stent Ascending cholangitis E coli bacteremia Cholelithiasis f/u GI f/u surgery Hx Thyroid dx Endo Anemia etiol? w/u ordered Major Depression t/c Lexapro 5mg Long D/W family PT and consultants - Date & Time Date: 07/02/18 Time: 22:22
[2018-07-03 06:43] LABS: HEMOGLOBIN 13.9 g/dL (12.0-18.0); MEAN CELL VOLUME 91.3 fl (80.0-94.0); MEAN CORPUSCULAR HEMOGLOBIN 30.6 pg (27.0-31.0); MEAN CORPUSCULAR HGB CONC 33.5 g/dL (33.0-37.0); RBC 4.53 Mil/uL (4.40-5.90); RED CELL DISTRIBUTION WIDTH 14.5 % (11.5-14.5); WHITE BLOOD COUNT 8.9 K/uL (4.8-10.8)
[2018-07-03 06:58] LABS: ALB/GLOB RATIO 1.3 (1.0-2.1); ALBUMIN 3.2 g/dL (3.5-5.0); ALT/SGPT 22 U/L (21-72); AST/SGOT 18 U/L (17-59); BLOOD UREA NITROGEN 7 mg/dl (9-20); CALCIUM 8.8 mg/dL (8.4-10.2); GFR NON-AFRICAN AMERICAN > 60; HDL CHOLESTEROL 48 MG/DL (30-70)
[2018-07-03 07:08] LABS: LDL CHOLESTEROL 112 mg/dL (0-129)
[2018-07-03 08:31] VITALS: BP 163/72; PULSE 60; RESP 20; TEMP 97.8
[2018-07-03] MEDS ORDERED: FERROUS SULFATE PO SCH (09:00)
[2018-07-03] MEDS ORDERED: Iodixanol 320 MG/ML 100 ML BOTTLE IV ONE (09:07)
[2018-07-03] MEDS ORDERED: Sodium Chloride 0.9% 100 ML ONE (09:09)
[2018-07-03] MEDS: Enoxaparin 60 mg Syringe SC SCH (09:57)
--- NOTE | 2018-07-03 12:47 | CP.PCM.PN ---
Subjective - Date & Time of Evaluation Date of Evaluation: 07/03/18 Time of Evaluation: 12:30 - Subjective Subjective: NO NEW COMPLAINTS Objective - Vital Signs/Intake and Output Vital Signs (last 24 hours): Temp Pulse Resp BP Pulse Ox 97.8 F 60 20 163/72 H 96 07/03/18 08:29 07/03/18 08:29 07/03/18 08:29 07/03/18 08:29 07/03/18 08:29 - Medications Medications: Current Medications Atorvastatin Calcium (Lipitor) 10 mg PO DAILY [facility] Last Admin: 07/03/18 09:57 Dose: 10 mg Enoxaparin Sodium (Lovenox) 60 mg SC Q12 [facility]; Protocol Last Admin: 07/03/18 09:57 Dose: 60 mg Escitalopram Oxalate (Lexapro) 10 mg PO HS [facility] Last Admin: 07/02/18 21:25 Dose: 10 mg Finasteride (Proscar) 5 mg PO DAILY [facility] Last Admin: 07/03/18 09:57 Dose: 5 mg Home Med (Patient's Own Medication) 1 unit PO DAILY [facility] Dextrose/Sodium Chloride (Dextrose 5%-0.45% Ns 500 Ml) 500 mls @ 40 mls/hr IV .[id number] [facility] Stop: 07/03/18 22:49 Last Admin: 07/03/18 00:08 Dose: 40 mls/hr Levothyroxine Sodium (Synthroid) 88 mcg PO DAILY@0630 [facility] Last Admin: 07/03/18 05:47 Dose: 88 mcg Prednisone (Prednisone Tab) 5 mg PO DAILY [facility] Last Admin: 07/03/18 09:57 Dose: 5 mg Tamsulosin HCl (Flomax) 0.8 mg PO DAILY [facility] Last Admin: 07/03/18 09:57 Dose: 0.8 mg - Labs Labs: 07/03/18 05:45 07/03/18 05:45 PT 10.7 Seconds (9.8-13.1) 07/01/18 16:10 INR 0.9 07/01/18 16:10 APTT 39.4 Seconds (25.6-37.1) H 07/01/18 16:10 - Respiratory Exam Respiratory Exam: Clear to Ausculation Bilateral - Cardiovascular Exam Cardiovascular Exam: REGULAR RHYTHM, +S1, +S2 - Extremities Exam Additional comments: DECREASED PULSES IN LE BILAT NO LE EDEMA - Additional Findings Additional findings: BILAT LE CT ANGIO REPORT REVIEWED-PATIENT HAS SIGNIFICANT LE PAD WITH MILD TO MODERATE OBSTRUCTIONS AND ALSO SOME COMPLETE OCCLUSIONS Assessment and Plan - Assessment and Plan (Free Text) Assessment: PAD HYPERLIPIDEMIA COPD Plan: DR SHARMA WILL REVIEW THE LE CT ANGIO TO DECIDE ON TREATMENT PATIENT AND DAUGHTER SPOKEN TO
--- NOTE | 2018-07-03 23:30 | CP.PCM.PN ---
Subjective - Date & Time of Evaluation Date of Evaluation: 07/03/18 Time of Evaluation: 22:22 - Subjective Subjective: Venogram results pending Objective - Vital Signs/Intake and Output Vital Signs (last 24 hours): Temp Pulse Resp BP Pulse Ox 97.8 F 60 20 163/72 H 96 07/03/18 09:00 07/03/18 09:00 07/03/18 09:00 07/03/18 09:00 07/03/18 09:00 - Labs Labs: 07/03/18 05:45 07/03/18 05:45 PT 10.7 Seconds (9.8-13.1) 07/01/18 16:10 INR 0.9 07/01/18 16:10 APTT 39.4 Seconds (25.6-37.1) H 07/01/18 16:10 - Respiratory Exam Respiratory Exam: NORMAL BREATHING PATTERN - Cardiovascular Exam Cardiovascular Exam: REGULAR RHYTHM - GI/Abdominal Exam GI & Abdominal Exam: Normal Bowel Sounds Assessment and Plan - Assessment and Plan (Free Text) Assessment: Venous doppler DVT proximal ?? 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 Hx CBD stone S/P ERCP Stent Ascending cholangitis E coli bacteremia Cholelithiasis f/u GI f/u surgery Hx Thyroid dx Endo Anemia etiol? w/u ordered Major Depression t/c Lexapro 5mg Long D/W family PT and consultants
--- NOTE | 2018-07-04 15:50 | CT ---
Date of service: 07/03/2018 PROCEDURE: HISTORY: rule out left profunda vein thrombus COMPARISON: TECHNIQUE: FINDINGS: Evaluation is limited, however, there are findings suggesting filling defects compatible with deep vein thrombosis in the left external iliac and left common femoral veins. The remaining deep venous structures including the inferior vena cava grossly demonstrate no clot. There are diffuse atherosclerotic changes throughout the abdominal aorta with mural thrombus at the level of the distal abdominal aorta as well as the mid abdominal aorta. There is no aneurysm or dissection. On the right there are heavy atherosclerotic plaque present in the right common iliac artery, external iliac artery as well as the common femoral artery. Severe atherosclerotic plaque present throughout the right proximal superficial femoral artery with occlusion at the level of the right superficial femoral artery and distal reconstitution approximately 12 centimeters distal via the collaterals. There is extensive plaque throughout the level of the distal superficial femoral artery and the popliteal artery with several areas of moderate grade stenosis. Triple runoff demonstrates scattered atherosclerotic change without definite evidence of hemodynamically significant stenosis. On the left side there are heavy atherosclerotic changes in the left common iliac artery as well as the left external iliac artery and left common femoral artery. Several areas of [id number] grade stenosis are present. There is heavy plaque present the level of the proximal left superficial femoral artery and there is occlusion with reconstitution via collaterals approximately 8 centimeters distally. Diffuse atherosclerotic changes are present. In the distal superficial femoral artery and popliteal artery. The left triple runoff demonstrates scattered atherosclerotic changes without occlusion. The gallbladder is distended and contains several calcified gallstones in the dependent portion. Recommend correlation with upper right quadrant ultrasound. The liver, pancreas, adrenal glands and spleen are unremarkable. The kidneys are grossly unremarkable though there is evidence of right renal artery stenosis. There is no evidence of appendicitis. The bowel loops are unremarkable. Surgical clips are present adjacent to the distal soft gas. There is no significant adenopathy. The bladder is unremarkable. There is no pelvic ascites. The lung bases are clear. There is a small hiatal hernia. IMPRESSION: Limited examination though there are filling defects compatible with DVT involving the left external iliac vein and left common femoral vein. Recommend correlation with duplex ultrasound.
[2018-07-04 16:52] VITALS: O2SAT 99
== END 2018-07-03 13:48 | disposition home or self-care (01) | DRG 301 ==
LOC: H.ER 10:42 → H.ERHOLD 18:54 → H.MEDSURG1 21:45
PROVIDERS: ADMIT Family Medicine Geriatric Medicine; ATTEND Family Medicine Geriatric Medicine
PROC: B40DYZZ Plain Radiography of Aorta and Bilateral Lower Extremity Arteries using Other Contrast (ICD-10-PCS; principal; 2018-07-01)
DX: I82.492 Acute embolism and thrombosis of other specified deep vein of left lower extremity (principal); I73.9 Peripheral vascular disease, unspecified; K80.50 Calculus of bile duct without cholangitis or cholecystitis without obstruction; F32.9 Major depressive disorder, single episode, unspecified; M35.3 Polymyalgia rheumatica; D64.9 Anemia, unspecified; E78.5 Hyperlipidemia, unspecified; E78.00 Pure hypercholesterolemia, unspecified; F41.8 Other specified anxiety disorders; I10 Essential (primary) hypertension; J44.9 Chronic obstructive pulmonary disease, unspecified; F17.210 Nicotine dependence, cigarettes, uncomplicated; Z86.19 Personal history of other infectious and parasitic diseases; Z87.442 Personal history of urinary calculi; Z86.010 Personal history of colon polyps